=== PATIENT | female | born 1945 | race African-American/Black ===

== ENCOUNTER 2016-07-24 14:09 | Inpatient (IN) ==
[2016-07-24] MEDS ORDERED: SODIUM CHLORIDE 0.9% 250 ML IV PRN (16:07)
--- NOTE | 2016-07-24 18:18 | Pulmonology History & Physical ---
Assessment and Plan (1) GI bleed Status: Acute Assessment and plan: Patient currently stable. Type and crossed for PRBC as needed to keep Hct > 24 per GI recs. Protonix 40mg IV bid. Plan for EGD tomorrow. If no active bleed found, can hopefully transfer her back to [facility] Current Visit: Yes Qualifiers: GI bleed type/associated pathology: gastrointestinal hemorrhage with hematemesis Qualified Code(s): K92.0 - Hematemesis (2) Decubitus ulcer of sacral region, stage 3 Status: Chronic Assessment and plan: Continue wound care measures Current Visit: No (3) Atrial fibrillation Status: Chronic Assessment and plan: Stable, continue her Diltaizem and beta jihan, holding for any hypotension. Holding anticoagulation for bleed as well Current Visit: No (4) Dry gangrene Status: Chronic Current Visit: No (5) Chronic kidney disease, stage III (moderate) Status: Chronic Assessment and plan: Avoid nephrotoxic agents, continue YAEL when able to tolerate from BP standpoint Current Visit: No ROS unobtainable: due to mental status History of Present Illness History of present illness: Ms. Ramírez is a 71 year old female who has been at [facility] for the last few weeks. She has large decubitus ulcers and dry gangrene of the feet. She was being seen there for wound care and rehab, although her overall prognosis was not felt to be very good because of her multiple comorbidities. Last night she had an episode of projectile vomting which was noted ot be black by nursing staff. She also had a large melanotic bowel movement. Her vitals remained stable however and she had no further episodes of this. However CBCs were checked and her H&H was noted to be down trending significantly. GI was consulted and felt she needed to be moved to [facility] for EGD and any other interventions that might need to be done. Home Medications Medication Instructions Recorded Confirmed Type amLODIPine [Norvasc] 10 mg PO DAILY 06/28/16 07/11/16 History Acetaminophen Tab [Tylenol Tab] 650 mg PO Q6H PRN #0 tablet 07/06/16 07/11/16 Rx Alum/Mag/Simeth Max Str Liquid 15 ml PO Q6H PRN #0 udcup 07/06/16 07/11/16 Rx [Mylanta Max Strength Liquid] Atorvastatin [Lipitor] 40 mg PO BEDTIME #90 tablet 07/06/16 07/11/16 Rx Bisacodyl Tab [Dulcolax Tab] 5 mg PO DAILY PRN #0 tablet 07/06/16 07/11/16 Rx Skin Healing Oint (Aquaphor) 1 applic TOP PRN PRN #1 ointment 07/06/16 07/11/16 Rx [Aquaphor] Sodium Hypochlorite 0.25% Irr 1 applic TOP DAILY #1 irrigation 07/06/16 Rx [Dakins 1/2 Strength 0.25% Soln] Linagliptin [Tradjenta] 5 mg PO DAILY 07/11/16 07/11/16 History Multivit,Ca,Iron,Min/FA/Alb354 1 each PO DAILY 07/11/16 07/11/16 History [One Daily Healthy Weight Tab] Zolpidem Tartrate 5 mg PO BEDTIME 07/11/16 07/11/16 History diltiaZEM HCl [Diltiazem HCl] 60 mg PO Q8H 07/11/16 07/11/16 History Collagenase Oint [Santyl Oint] 1 applic TOP DAILY ointment 07/14/16 Rx HYDROcodone/ACETAMIN 10-325 [[place] 1 tablet PO Q4H PRN #0 tablet 07/14/16 Rx 10-325] Insulin Detemir [Levemir] 7 unit SUBCUT BEDTIME #0 07/14/16 07/11/16 Rx Metoprolol Tartrate Tab [Lopressor 25 mg PO BID tablet 07/14/16 Rx Tab] Pantoprazole Tab [Protonix Tab] 40 mg PO BID #60 tablet 07/14/16 Rx Skin Healing Oint (Aquaphor) 1 applic TOP PRN PRN #0 ointment 07/14/16 Rx [Aquaphor] Sodium Hypochlorite 0.25% Irr 1 applic TOP DAILY irrigation 07/14/16 Rx [Dakins 1/2 Strength 0.25% Soln] fentaNYL 12 MCG/HR PATCH 1 patch TRANSDERM Q3DAY patch 07/14/16 Rx [Duragesic 12 Patch] Allergies Allergy/AdvReac Type Severity Reaction Status Date / Time No Known Allergies Allergy Verified 07/11/16 08:47 Medical,Surgical,& Family Hx - Medical History Cardio: History of: Hypertension, [place] No history of: Pacemaker Neurology: History of: Dementia HEENT: History of: Eye Problem (Glasses), Dental Problems (Full dentures) Endocrine: History of: Diabetes Mellitus (IDDM) Gastrointestinal: History of: GERD, GI Problems (DYSPEPSIA, CONSTIPATION) Musculoskeletal: History of: Musculoskeletal Problems (OA left hip) Hematology: History of: Bleeding Problems (DVT RLE) Other: History of: Skin Problems (STAGE 4 SACRAL ULCER) - Surgical History HEENT Surgeries: Surgical HX of: Eye Surgery (Bilateral cataracts sx) - Family History Family History: Reports;: Family Cancer, Family Diabetes, Family Hypertension - Social History Smoking Status: Never smoker Results - Labs Lab Results: I have reviewed the past 24 hour labs (H&H this am 2.9 and 21, was 8.5 and 28 last night, and 12 and 40 on the ) Exam ([facility]) H&P - Constitutional Vitals: Period Temp Pulse Resp BP Sys/Ballard Pulse Ox Last 24 Hr 96.8 F 100-105 19-24 101-138/65-90 93 General appearance: mild distress - Head Head exam: Present: normal inspection - Eye Eye exam: Present: EOMI - ENT ENT exam: Present: normal exam - Respiratory Respiratory exam: Present: clear to auscultation bilaterally - Cardiovascular Cardiovascular exam: Present: regular rate and rhythm - GI/Abdominal GI/Abdominal exam: Present: hypoactive bowel sounds, soft. Absent: tenderness - Skin Skin exam: Present: other (sacral decub stage 4)
[2016-07-24] MEDS: PANTOPRAZOLE 40 MG VIAL IV SCH ×2 (19:00→21:58)
[2016-07-24] MEDS: fentaNYL 100 MCG/2 ML VIAL IV PRN (21:58)
[2016-07-24] MEDS: DILTIAZEM 60 MG TABLET PO SCH (21:58)
[2016-07-25 02:22] LABS: Apearance,Urine CLOUDY (Clear); Bacteria,Urine Many /HPF (Few); Bilirubin,Urine Negative (Negative); Blood, Urine Moderate mg/dL (Negative); Glucose,Urine (UA) Negative (Negative); Ketones,Urine Negative (Negative); Nitrite,Urine Negative (Negative); Protein,Urine 100 MG/DL; RBC,Urine 84 /HPF (0-4); Urine Specific Gravity 1.014 (1.001-1.035); Urine Urobilinogen < 2.0 EU/DL (0.2-1.0); WBC,Urine 2 /HPF (0-6)
[2016-07-25 02:23] LABS: Urine Color Light Yellow (Yellow)
[2016-07-25] MEDS: fentaNYL 100 MCG/2 ML VIAL IV PRN ×6 (03:30→17:31)
[2016-07-25 04:24] LABS: Basophils % 0.3 % (0.0-0.8); Eosinophils # 0.2 10*3/uL (0.0-0.87); Eosinophils % 1.2 % (0.00-10.9); Hematocrit 31.1 VOL% (35.7-47.0); Hemoglobin 8.7 GM/DL (12.0-16.0); Immature Granulocytes % 0.9 %; Immature Granulocytes Absolute 0.12 #; Lymphocytes # 1.7 10*3/uL (1.4-4.0); Lymphocytes % 12.6 % (21.3-54.2); Mean Corpuscular Hemoglobin 27 PG (27-34); Mean Corpuscular Volume 96.9 FL (87-102); Mean Platelet Volume 10.8 FL (9.6-12.0); Monocytes # 0.7 10*3/uL (0.11-0.8); Monocytes % 5.4 % (1.7-12.7); Neutrophils # 10.7 10*3/uL (1.4-7.4); Neutrophils % 79.6 % (38.7-73.9); Platelet Count 245 10*3/uL (130-400); Red Blood Count 3.21 10*6/uL (3.8-5.5); Red Cell Distribution Width 16.7 % (9.3-17.3); White Blood Count 13.4 10*3/uL (4.5-13.71)
[2016-07-25 06:44] LABS: Alanine Aminotransferase < 9 U/L (13-56); Albumin 1.5 G/DL (3.4-5.0); Alkaline Phosphatase 78 U/L (45-117); Aspartate Amino Transferase 20 U/L (0-37); Blood Urea Nitrogen 69 MG/DL (7-18); Calcium 7.8 MG/DL (8.5-10.1); Glucose 191 MG/DL (74-106); Osmolality,Calculated 336.9 MOS/KG (273-304); Potassium 4.3 MMOL/L (3.5-5.1); Sodium 158 MMOL/L (136-145); Total Protein 4.7 G/DL (6.4-8.3)
--- NOTE | 2016-07-25 07:39 | Gastrointestinal Consult Note ---
Assessment and Plan (1) Upper gastrointestinal bleed Status: Acute Assessment and plan: Patient was seen for the same issues 10 days ago but now appears to be having coffee-ground emesis and ananya melena. I don't believe the NG tube is probably going to help matters at all and we may consider putting in a PEG tube considering her albumin levels 1.5 and she has clinically significant decubiti and dry gangrene of her extremities. She needs a reliable nutritional source and we had discussed this on her last admission. She will discuss with the family whether she wants to proceed with PEG tube placement. I will evaluate her for esophagitis/gastritis/[place] tears/ulcers but only mild gastritis and mild esophagitis was seen back in March before she was actively bleeding. This patient will simply need to be off of Lovenox may be just cover with aspirin once we are able to identify a source. She absolutely, positively, needs to be on twice a day PPIs for the short-term at least, not famotidine. Current Visit: Yes (2) Acute posthemorrhagic anemia Status: Acute Assessment and plan: Hematocrit has responded nicely to transfusion 1 unit of packed red blood cells after dropping to 21%. Now up to 31%, surprisingly. The patient can be observed on the telemetry unit that she has A. fib and we will proceed with upper endoscopy tomorrow morning. I do not feel that she requires continued ICU observation. I've ordered the NG tube removed at this point and we will again consider PEG tube placement tomorrow while we do the upper endoscopy if the family and the patient desire this. Current Visit: Yes (3) Malnutrition of moderate degree Status: Acute Current Visit: Yes (4) Gastritis Status: Acute Current Visit: No (5) Severe malnutrition Status: Acute Assessment and plan: I'm going to order pre-albumin level but the patient's albumin is 1.5 indicating a severe calorie deficiency. I believe at this point that her wounds are probably not going to heal if she does not increase her calorie intake which would probably be best served by placement of PEG tube at this point. Risks and benefits the procedure were reviewed with the patient which include but are not limited to: Bleeding, infection, perforation, cardiac and pulmonary compromise as well as peritonitis from the PEG tube itself. Current Visit: Yes History of Present Illness Chief complaint: melena and coffee-ground emesis in a patient on Lovenox and aspirin History of present illness: Ms. Ramírez is a 71 year old female who is well-known to me from her previous hospitalization back in March 2016 at which time we had noted that she had a previous workup done for anemia by Dr. Whitaker back in 2010. An EGD was repeated by me on 03/26/16 which demonstrated mild patchy gastritis as well as LA class A erosive esophagitis with biopsies taken to rule out celiac sprue and Helicobacter pylori. The patient continues to have guaiac positive stools and has anemia not just due to the ongoing gastritis but likely from nutritional causes. Note that she has not eaten anything for several days of significance. She states that she does not have an appetite but likely there is some depression noted with or without dementia. She is now having any abdominal pain in the LUQ, she has some mild constipation but had an episode of melena yesterday along with coffee ground emesis. I did discuss the case with Aida her [id number], who is in the room on her last admission the placement of a PEG tube for nutritional support, but ultimately this was decided against. Despite the anemia and prior history of GI bleeding at [facility] she was started on Lovenox and aspirin, by report in the, and had once again and switch from Protonix to famotidine which is again what caused her GI bleed the last visit when I consulted on her 10 days ago. Matters drop from 28 % down to 21% now status post 1 unit of packed for blood cells this is back up to 31%. Need to minimize anticoagulation this lady and keep her on Protonix probably twice daily instead of H2 RA inhibitors. Home Medications Medication Instructions Recorded Confirmed Type amLODIPine [Norvasc] 10 mg PO DAILY 06/28/16 07/11/16 History Acetaminophen Tab [Tylenol Tab] 650 mg PO Q6H PRN #0 tablet 07/06/16 07/11/16 Rx Alum/Mag/Simeth Max Str Liquid 15 ml PO Q6H PRN #0 udcup 07/06/16 07/11/16 Rx [Mylanta Max Strength Liquid] Atorvastatin [Lipitor] 40 mg PO BEDTIME #90 tablet 07/06/16 07/11/16 Rx Bisacodyl Tab [Dulcolax Tab] 5 mg PO DAILY PRN #0 tablet 07/06/16 07/11/16 Rx Skin Healing Oint (Aquaphor) 1 applic TOP PRN PRN #1 ointment 07/06/16 07/11/16 Rx [Aquaphor] Sodium Hypochlorite 0.25% Irr 1 applic TOP DAILY #1 irrigation 07/06/16 Rx [Dakins 1/2 Strength 0.25% Soln] Linagliptin [Tradjenta] 5 mg PO DAILY 07/11/16 07/11/16 History Multivit,Ca,Iron,Min/FA/Rsr893 1 each PO DAILY 07/11/16 07/11/16 History [One Daily Healthy Weight Tab] Zolpidem Tartrate 5 mg PO BEDTIME 07/11/16 07/11/16 History diltiaZEM HCl [Diltiazem HCl] 60 mg PO Q8H 07/11/16 07/11/16 History Collagenase Oint [Santyl Oint] 1 applic TOP DAILY ointment 07/14/16 Rx HYDROcodone/ACETAMIN 10-325 [[place] 1 tablet PO Q4H PRN #0 tablet 07/14/16 Rx 10-325] Insulin Detemir [Levemir] 7 unit SUBCUT BEDTIME #0 07/14/16 07/11/16 Rx Metoprolol Tartrate Tab [Lopressor 25 mg PO BID tablet 07/14/16 Rx Tab] Pantoprazole Tab [Protonix Tab] 40 mg PO BID #60 tablet 07/14/16 Rx Skin Healing Oint (Aquaphor) 1 applic TOP PRN PRN #0 ointment 07/14/16 Rx [Aquaphor] Sodium Hypochlorite 0.25% Irr 1 applic TOP DAILY irrigation 07/14/16 Rx [Dakins 1/2 Strength 0.25% Soln] fentaNYL 12 MCG/HR PATCH 1 patch TRANSDERM Q3DAY patch 07/14/16 Rx [Duragesic 12 Patch] Allergies Allergy/AdvReac Type Severity Reaction Status Date / Time No Known Allergies Allergy Verified 07/11/16 08:47 Medical,Surgical,& Family Hx - Medical History Cardio: History of: Hypertension, [place] No history of: Pacemaker Neurology: History of: Dementia HEENT: History of: Eye Problem (Glasses), Dental Problems (Full dentures) Endocrine: History of: Diabetes Mellitus (IDDM) Gastrointestinal: History of: GERD, GI Problems (DYSPEPSIA, CONSTIPATION) Musculoskeletal: History of: Musculoskeletal Problems (OA left hip) Hematology: History of: Bleeding Problems (DVT RLE) Other: History of: Skin Problems (STAGE 4 SACRAL ULCER) - Surgical History HEENT Surgeries: Surgical HX of: Eye Surgery (Bilateral cataracts sx) - Family History Family History: Reports;: Family Cancer, Family Diabetes, Family Hypertension - Social History Smoking Status: Never smoker Review of systems: Constitutional: Denies fever, chills, but positive for nausea, and vomiting Eyes: Denies dry eyes, and scleral icterus HENT: Denies headaches Cardiovascular: Denies acute chest pain and claudication Respiratory: Denies shortness of breath, wheezing, and difficulty breathing, denies cough Gastrointestinal: As noted in the HPI Genitourinary: Denies dysuria and hematuria Neurologic: Denies vision loss, and loss of sensation Musculoskeletal: Admits to joint swelling, joint stiffness, and muscular weakness--multiple decubiti and distal gangrene noted Psychiatric: Admits to some depression but no malcom symptoms Heme-Lymph: Denies easy bruising, lymph node enlargement or tenderness, night sweats, excessive bleeding Allergies-immunologic: Denies pruritus and rhinorrhea Exam - Constitutional Vitals: Period Temp Pulse Resp BP Sys/Ballard Pulse Ox Last 24 Hr 96.8 F-97.4 F 90-111 17-25 95-139/58-96 93-100 General appearance: no acute distress - Head Head exam: Present: normocephalic - Eye Eye exam: Present: EOMI Pupils: Present: BREANN - Respiratory Respiratory exam: Present: clear to auscultation bilaterally. Absent: rales, rhonchi, wheezes - Cardiovascular Cardiovascular exam: Present: regular rate and rhythm - GI/Abdominal GI/Abdominal exam: Present: normal bowel sounds, tenderness (in the left upper quadrant), soft. Absent: ascites, distended, guarding - Neurological Exam Neurological exam: Present: alert, oriented X3, CN II-XII intact. Absent: motor sensory deficit - Psychiatric Psychiatric exam: Present: normal affect, normal mood - Skin Skin exam: Present: warm Results - Labs CBC & BMP: 07/25/16 04:00 07/25/16 05:54 Specialty Discharge - Follow Up or Referrals - Discharge Medications No Action amLODIPine [Norvasc] 10 mg PO DAILY Atorvastatin [Lipitor] 40 mg PO BEDTIME #90 tablet Skin Healing Oint (Aquaphor) [Aquaphor] 1 applic TOP PRN PRN #1 ointment PRN Reason: Dry Skin HYDROcodone/ACETAMIN 10-325 [[place] 10-325] 1 tablet PO Q4H PRN #0 tablet PRN Reason: Pain Moderate (4-7) Metoprolol Tartrate Tab [Lopressor Tab] 25 mg PO BID tablet Skin Healing Oint (Aquaphor) [Aquaphor] 1 applic TOP PRN PRN #0 ointment PRN Reason: Dry Skin Sodium Hypochlorite 0.25% Irr [Dakins 1/2 Strength 0.25% Soln] 1 applic TOP DAILY irrigation Insulin Detemir [Levemir] 7 unit SUBCUT BEDTIME #0 Acetaminophen Tab [Tylenol Tab] 650 mg PO Q6H PRN #0 tablet PRN Reason: Pain Mild (1-3) And/Or Fever Alum/Mag/Simeth Max Str Liquid [Mylanta Max Strength Liquid] 15 ml PO Q6H PRN #0 udcup PRN Reason: Dyspepsia Bisacodyl Tab [Dulcolax Tab] 5 mg PO DAILY PRN #0 tablet PRN Reason: Constipation Sodium Hypochlorite 0.25% Irr [Dakins 1/2 Strength 0.25% Soln] 1 applic TOP DAILY #1 irrigation Multivit,Ca,Iron,Min/FA/Qup505 [One Daily Healthy Weight Tab] 1 each PO DAILY Zolpidem Tartrate 5 mg PO BEDTIME diltiaZEM HCl [Diltiazem HCl] 60 mg PO Q8H Linagliptin [Tradjenta] 5 mg PO DAILY Collagenase Oint [Santyl Oint] 1 applic TOP DAILY ointment fentaNYL 12 MCG/HR PATCH [Duragesic 12 Patch] 1 patch TRANSDERM Q3DAY patch Pantoprazole Tab [Protonix Tab] 40 mg PO BID #60 tablet
[2016-07-25 09:03] LABS: INR 1.1; PT Patient Result 11.9 SECS
[2016-07-25] MEDS: DILTIAZEM 60 MG TABLET PO SCH ×3 (09:11→21:14)
[2016-07-25] MEDS: PANTOPRAZOLE 40 MG VIAL IV SCH ×2 (09:11→21:14)
[2016-07-25] MEDS ORDERED: LIDOCAINE 1% 5 ML VIAL ONE (10:14)
[2016-07-25] MEDS ORDERED: PROPOFOL 200 MG/20 ML VIAL IV ONE (10:14)
[2016-07-25] MEDS ORDERED: SODIUM CHLORIDE 0.9% 250 ML IV PRN (12:50)
[2016-07-25] MEDS ORDERED: SKIN HEALING OINT (AQUAPHOR) 50 GM TUBE TOP PRN ×2 (13:42)
--- NOTE | 2016-07-25 19:40 | Pulmonology Progress Note ---
Pulmonary - PN: Subj Interval history: Patient stable without further bleed today. Transferred out of ICU. Gi consulted. Exam (Progress Note) - Constitutional Vitals: Period Temp Pulse Resp BP Sys/Ballard Pulse Ox Last 24 Hr 97 F-99.3 F 76-111 12-25 95-138/50-96 93-100 General appearance: no acute distress - Head Head exam: Present: normal inspection - Respiratory Respiratory exam: Absent: accessory muscle use, wheezes - Cardiovascular Cardiovascular exam: Present: regular rate and rhythm Results - Labs CBC & BMP: 07/25/16 12:12 07/25/16 05:54 Lab Results: I have reviewed the past 24 hour labs Assessment and Plan (1) GI bleed Status: Acute Assessment and plan: Patient stable. Appreciate GI recs. Plan for EGD tomorow morning. Continue Protonix Current Visit: Yes Qualifiers: GI bleed type/associated pathology: gastrointestinal hemorrhage with hematemesis Qualified Code(s): K92.0 - Hematemesis (2) Decubitus ulcer of sacral region, stage 3 Status: Chronic Assessment and plan: Continue wound care measures Current Visit: No (3) Atrial fibrillation Status: Chronic Assessment and plan: Stable, continue her Diltaizem and beta jihan, holding for any hypotension. Holding anticoagulation for bleed as well Current Visit: No (4) Dry gangrene Status: Chronic Current Visit: No (5) Chronic kidney disease, stage III (moderate) Status: Chronic Assessment and plan: Avoid nephrotoxic agents, continue YAEL when able to tolerate from BP standpoint Current Visit: No Specialty Discharge - Follow Up or Referrals - Discharge Medications No Action amLODIPine [Norvasc] 10 mg PO DAILY Atorvastatin [Lipitor] 40 mg PO BEDTIME #90 tablet Skin Healing Oint (Aquaphor) [Aquaphor] 1 applic TOP PRN PRN #1 ointment PRN Reason: Dry Skin HYDROcodone/ACETAMIN 10-325 [[place] 10-325] 1 tablet PO Q4H PRN #0 tablet PRN Reason: Pain Moderate (4-7) Metoprolol Tartrate Tab [Lopressor Tab] 25 mg PO BID tablet Skin Healing Oint (Aquaphor) [Aquaphor] 1 applic TOP PRN PRN #0 ointment PRN Reason: Dry Skin Sodium Hypochlorite 0.25% Irr [Dakins 1/2 Strength 0.25% Soln] 1 applic TOP DAILY irrigation Insulin Detemir [Levemir] 7 unit SUBCUT BEDTIME #0 Acetaminophen Tab [Tylenol Tab] 650 mg PO Q6H PRN #0 tablet PRN Reason: Pain Mild (1-3) And/Or Fever Alum/Mag/Simeth Max Str Liquid [Mylanta Max Strength Liquid] 15 ml PO Q6H PRN #0 udcup PRN Reason: Dyspepsia Bisacodyl Tab [Dulcolax Tab] 5 mg PO DAILY PRN #0 tablet PRN Reason: Constipation Sodium Hypochlorite 0.25% Irr [Dakins 1/2 Strength 0.25% Soln] 1 applic TOP DAILY #1 irrigation Multivit,Ca,Iron,Min/FA/Ieg749 [One Daily Healthy Weight Tab] 1 each PO DAILY Zolpidem Tartrate 5 mg PO BEDTIME diltiaZEM HCl [Diltiazem HCl] 60 mg PO Q8H Linagliptin [Tradjenta] 5 mg PO DAILY Collagenase Oint [Santyl Oint] 1 applic TOP DAILY ointment fentaNYL 12 MCG/HR PATCH [Duragesic 12 Patch] 1 patch TRANSDERM Q3DAY patch Pantoprazole Tab [Protonix Tab] 40 mg PO BID #60 tablet
[2016-07-25] MEDS: ZALEPLON 5 MG CAPSULE PO SCH (21:15)
[2016-07-26] MEDS: fentaNYL 100 MCG/2 ML VIAL IV PRN ×4 (05:30→17:43)
[2016-07-26 07:23] LABS: Basophils % 0.3 % (0.0-0.8); Eosinophils # 0.2 10*3/uL (0.0-0.87); Eosinophils % 2.2 % (0.00-10.9); Hematocrit 27.9 VOL% (35.7-47.0); Hemoglobin 8.6 GM/DL (12.0-16.0); Immature Granulocytes % 0.5 %; Immature Granulocytes Absolute 0.05 #; Lymphocytes # 1.5 10*3/uL (1.4-4.0); Lymphocytes % 14.7 % (21.3-54.2); Mean Corpuscular HGB Conc 30.8 GM/DL (32-36); Mean Corpuscular Hemoglobin 28 PG (27-34); Mean Corpuscular Volume 89.7 FL (87-102); Mean Platelet Volume 10.8 FL (9.6-12.0); Monocytes # 0.7 10*3/uL (0.11-0.8); Neutrophils # 7.9 10*3/uL (1.4-7.4); Neutrophils % 75.3 % (38.7-73.9); Platelet Count 221 10*3/uL (130-400); Red Blood Count 3.11 10*6/uL (3.8-5.5); Red Cell Distribution Width 16.5 % (9.3-17.3); White Blood Count 10.4 10*3/uL (4.5-13.71)
[2016-07-26] MEDS ORDERED: SODIUM HYPOCHLORITE 0.25% IRRIG 473 ML BOTTLE TOP SCH (09:00)
[2016-07-26] MEDS: DEXTROSE 5% NACL 0.45% 1,000 ML IV SCH (09:59)
--- NOTE | 2016-07-26 10:50 | Operative Note ---
Date of procedure: 07/26/16 Pre-op diagnosis: hematocrit decreased to 21.8%, coffee-ground emesis, malnutrition Post-op diagnosis: other Procedure: PROCEDURE: Esophagogastroduodenoscopy (EGD) with percutaneous endoscopic gastrostomy (PEG) tube placement with cold biopsy for pathology REFERRING PHYSICIAN: [Morales Cook M.D.] INDICATIONS: [Coffee-ground emesis and hematocrit drop with melena to 21.8%, now status post 3 unit transfusion this is up to 27%. This patient previously been evaluated for severe malnutrition and has had difficulty taking and caloric intake adequate to meet her healing needs and so PEG tube requested previously, we'll place at this time. Of note this patient was taken off of her Protonix that she had received previously and placed on famotidine along with reinitiation of aspirin and Plavix at [facility].] ENDOSCOPIST: Prabhjot Arreola MD ENDOSCOPE: Olympus Video 100 System upper endoscope ASA CLASS: [] EXAM: CV: [Regular rate and rhythm] Respiratory: [Clear to ascultation] Abdominal: [Positive bowel sounds] MEDICATION: As per Anesthesia nursing protocol, see their notes PROCEDURE: After discussion of the potential risks and benefits of upper endoscopy and PEG placement, the informed consent was obtained. The patient was then placed in the left lateral decubitus position where sedation was achieved as noted above. Esophageal intubation was performed without difficulty , and the endoscope was advanced through the esophagus, stomach and duodenum. A slow withdrawal was then performed with retroflexion in the stomach for careful inspection of the incisura angularis, fundus and cardia. The scope was then returned to a neutral position and withdrawn through the esophagus. The patient tolerated the procedure well and without complication. BIOPSIES: [Gastric antrum/body] PHOTOGRAPHS: [Obtained] FINDINGS: Hypopharynx and Larynx: [Normal] Esohagoscopy Upper and middle thirds: [Normal] Lower third [Normal] Esophogastric junctions: [No gross evidence of stricturing, but a localized Ifeoma-Troy tear that appeared to be healing was seen here.][] Gastroscopy: Cardia/Fundus: [A large 8 cm hiatal hernia was noted here distorting the anatomy of the stomach has approximately a quarter to a third of this was located in the thoracic cavity. Carditis noted within the hiatal hernia along with the bottom portion of the healing Ifeoma-Troy tear ] Body: [Mild diffuse gastritis, biopsied] Antrum and pylorus [mild patchy gastritis, patchy erosive gastritis biopsied][] Duodenoscopy: Bulb [Normal] Second and third portions: [Normal] PEG Kit/tube size: [Cook 20 Lebanese PEG tube] PEG Placement: After insufflation of the stomach with the prior procedure proper positioning was determined through transillumination and direct pressure with one to one transmission through the abdominal wall. The abdomen was sterilely prepped and draped, injected with 1% lidocaine and a 1 cm incision was cut in the external skin to accommodate the PEG tube. Using standard Ponsky "pull" technique, a catheter was inserted into the stomach (using a fluid filled syringe with back-suction to examine for interposed hollow organs) and a string was advanced into the stomach. This was snared through the scope, pulled through the mouth and tied to the PEG tube. The feeding tube was then pulled down into the stomach and out the abdominal wall, and a hub appropriately placed at the base to provide traction between internal hub and external skin. The tube was trimmed, dressed and a second look with the endoscope used to confirm position and function of the tube. The procedure was tolerated well and without complication. IMPRESSION: [Successful PEG tube placement, patient's coffee-ground emesis was thought to be due to a combination of Ifeoma-Troy tear and erosive gastritis in the stomach particularly in the antrum. Biopsies are pending-- anemia secondary to malnutrition and chronic disease is also suspected be playing a part. Initiation of tube feeds should help with this.] RECOMMENDATIONS: [Maintain head of bed at 30 degrees Flush the PEG tube with 30 cc of water or saline every 4 hours Obtain (if not done already) nutritional consult to determine optimal feeding rate, continuous vs. bolus, and any hydration requirements necessary. Meds may be crushed and flushed through PEG in 12 hours, followed by 10 ml of water, as per the patient's attending physcian. Feeding though the tube may start at 12 hours with an initial rate of 30 ml/ hour advancing by 10 ml's every four hours until goal rate achieved. Hold tube feeds for residuals greater than 100 ml, checked each shift.] [Use of the abdominal binder is strongly encouraged in this patient.] She is certainly safe to return to [facility] in my opinion. Would strongly discourage use of aspirin and Plavix in the short-term while the above lesions heal. We will use Protonix 40 mg twice daily for the next 1 month and cut this back to once daily Prabhjot Arreola MD Copy to: [Morales Cook M.D.] Anesthesia: MAC Surgeon / Physician: Prabhjot Arreola Estimated blood loss: minimal Specimens: other (gastric antrum/body) Condition: stable Disposition: post procedure unit (G.I. Suite) Results - Labs CBC & BMP: 07/26/16 07:04 07/25/16 05:54 Discharge Plan - Discharge Medications No Action amLODIPine [Norvasc] 10 mg PO DAILY Atorvastatin [Lipitor] 40 mg PO BEDTIME #90 tablet Skin Healing Oint (Aquaphor) [Aquaphor] 1 applic TOP PRN PRN #1 ointment PRN Reason: Dry Skin HYDROcodone/ACETAMIN 10-325 [[place] 10-325] 1 tablet PO Q4H PRN #0 tablet PRN Reason: Pain Moderate (4-7) Metoprolol Tartrate Tab [Lopressor Tab] 25 mg PO BID tablet Skin Healing Oint (Aquaphor) [Aquaphor] 1 applic TOP PRN PRN #0 ointment PRN Reason: Dry Skin Sodium Hypochlorite 0.25% Irr [Dakins 1/2 Strength 0.25% Soln] 1 applic TOP DAILY irrigation Insulin Detemir [Levemir] 7 unit SUBCUT BEDTIME #0 Acetaminophen Tab [Tylenol Tab] 650 mg PO Q6H PRN #0 tablet PRN Reason: Pain Mild (1-3) And/Or Fever Alum/Mag/Simeth Max Str Liquid [Mylanta Max Strength Liquid] 15 ml PO Q6H PRN #0 udcup PRN Reason: Dyspepsia Bisacodyl Tab [Dulcolax Tab] 5 mg PO DAILY PRN #0 tablet PRN Reason: Constipation Sodium Hypochlorite 0.25% Irr [Dakins 1/2 Strength 0.25% Soln] 1 applic TOP DAILY #1 irrigation Multivit,Ca,Iron,Min/FA/Dom288 [One Daily Healthy Weight Tab] 1 each PO DAILY Zolpidem Tartrate 5 mg PO BEDTIME diltiaZEM HCl [Diltiazem HCl] 60 mg PO Q8H Linagliptin [Tradjenta] 5 mg PO DAILY Collagenase Oint [Santyl Oint] 1 applic TOP DAILY ointment fentaNYL 12 MCG/HR PATCH [Duragesic 12 Patch] 1 patch TRANSDERM Q3DAY patch Pantoprazole Tab [Protonix Tab] 40 mg PO BID #60 tablet - Follow Up or Referral - Forms/Instructions
--- NOTE | 2016-07-26 10:57 | Gastrointestinal Progress Note ---
Assessment and Plan (1) Upper gastrointestinal bleed Status: Acute Assessment and plan: Patient was seen for the same issues 10 days ago but now appears to be having coffee-ground emesis and ananya melena. I don't believe the NG tube is probably going to help matters at all and we may consider putting in a PEG tube considering her albumin levels 1.5 and she has clinically significant decubiti and dry gangrene of her extremities. She needs a reliable nutritional source and we had discussed this on her last admission. She will discuss with the family whether she wants to proceed with PEG tube placement. I will evaluate her for esophagitis/gastritis/Ifeoma-Troy tears/ulcers but only mild gastritis and mild esophagitis was seen back in March before she was actively bleeding. This patient will simply need to be off of Lovenox may be just cover with aspirin once we are able to identify a source. She absolutely, positively, needs to be on twice a day PPIs for the short-term at least, not famotidine. 07/26/16-- the patient underwent upper endoscopy today with the following findings: Successful PEG tube placement, patient's coffee-ground emesis was thought to be due to a combination of Ifeoma-Troy tear and erosive gastritis in the stomach particularly in the antrum. Biopsies are pending-- anemia secondary to malnutrition and chronic disease is also suspected be playing a part. Initiation of tube feeds should help with this. In my opinion she is stable although you could watch her for another day she is probably safe to send back to [facility] today. Would initiate tube feeds in 12 hours. Current Visit: Yes (2) Acute posthemorrhagic anemia Status: Acute Assessment and plan: Hematocrit has responded nicely to transfusion 1 unit of packed red blood cells after dropping to 21%. Now up to 31%, surprisingly. The patient can be observed on the telemetry unit that she has A. fib and we will proceed with upper endoscopy tomorrow morning. I do not feel that she requires continued ICU observation. I've ordered the NG tube removed at this point and we will again consider PEG tube placement tomorrow while we do the upper endoscopy if the family and the patient desire this. 07/26/16--patient's hematocrit has improved with 3 units of blood, now up from 21.8 to 27.9. No further coffee-ground emesis been noted and she is safe to send back to the [facility] floor on Protonix twice a day as well as off of aspirin and Lovenox at least for the short-term. She will need be on Protonix at least once daily after 2 weeks. Current Visit: Yes (3) Malnutrition of moderate degree Status: Acute Current Visit: Yes (4) Gastritis Status: Acute Current Visit: No (5) Severe malnutrition Status: Acute Assessment and plan: I'm going to order pre-albumin level but the patient's albumin is 1.5 indicating a severe calorie deficiency. I believe at this point that her wounds are probably not going to heal if she does not increase her calorie intake which would probably be best served by placement of PEG tube at this point. Risks and benefits the procedure were reviewed with the patient which include but are not limited to: Bleeding, infection, perforation, cardiac and pulmonary compromise as well as peritonitis from the PEG tube itself. 07/26/16--patient's prealbumin level was noted to be low, she will benefit from PEG tube placement for nutritional improvement not just with improvement of her GI bleeding but also wound healing in general. Current Visit: Yes Gastroenterology - PN: Subj Interval history: No new complaints, I was able to talk with the patient's son Ignacio who gave consent for the procedure after being informed of the risks and benefits. Exam (Progress Note) - Constitutional Vitals: Period Temp Pulse Resp BP Sys/Ballard Pulse Ox Last 24 Hr 97 F-101.4 F 76-95 16-24 111-143/55-070 93-100 General appearance: no acute distress - Head Head exam: Present: normocephalic, atraumatic - Eye Eye exam: Present: EOMI Pupils: Present: BREANN - Respiratory Respiratory exam: Present: clear to auscultation bilaterally. Absent: rales, rhonchi, wheezes - GI/Abdominal GI/Abdominal exam: Present: normal bowel sounds, rebound, soft. Absent: tenderness - Neurological Exam Neurological exam: Present: alert, oriented X3 - Psychiatric Psychiatric exam: Present: normal affect, normal mood - Skin Skin exam: Present: normal color Results - Labs CBC & BMP: 07/26/16 07:04 07/25/16 05:54 Specialty Discharge - Follow Up or Referrals - Discharge Medications No Action amLODIPine [Norvasc] 10 mg PO DAILY Atorvastatin [Lipitor] 40 mg PO BEDTIME #90 tablet Skin Healing Oint (Aquaphor) [Aquaphor] 1 applic TOP PRN PRN #1 ointment PRN Reason: Dry Skin HYDROcodone/ACETAMIN 10-325 [[place] 10-325] 1 tablet PO Q4H PRN #0 tablet PRN Reason: Pain Moderate (4-7) Metoprolol Tartrate Tab [Lopressor Tab] 25 mg PO BID tablet Skin Healing Oint (Aquaphor) [Aquaphor] 1 applic TOP PRN PRN #0 ointment PRN Reason: Dry Skin Sodium Hypochlorite 0.25% Irr [Dakins 1/2 Strength 0.25% Soln] 1 applic TOP DAILY irrigation Insulin Detemir [Levemir] 7 unit SUBCUT BEDTIME #0 Acetaminophen Tab [Tylenol Tab] 650 mg PO Q6H PRN #0 tablet PRN Reason: Pain Mild (1-3) And/Or Fever Alum/Mag/Simeth Max Str Liquid [Mylanta Max Strength Liquid] 15 ml PO Q6H PRN #0 udcup PRN Reason: Dyspepsia Bisacodyl Tab [Dulcolax Tab] 5 mg PO DAILY PRN #0 tablet PRN Reason: Constipation Sodium Hypochlorite 0.25% Irr [Dakins 1/2 Strength 0.25% Soln] 1 applic TOP DAILY #1 irrigation Multivit,Ca,Iron,Min/FA/Kvy097 [One Daily Healthy Weight Tab] 1 each PO DAILY Zolpidem Tartrate 5 mg PO BEDTIME diltiaZEM HCl [Diltiazem HCl] 60 mg PO Q8H Linagliptin [Tradjenta] 5 mg PO DAILY Collagenase Oint [Santyl Oint] 1 applic TOP DAILY ointment fentaNYL 12 MCG/HR PATCH [Duragesic 12 Patch] 1 patch TRANSDERM Q3DAY patch Pantoprazole Tab [Protonix Tab] 40 mg PO BID #60 tablet
--- NOTE | 2016-07-26 10:58 | Anesthesia ---
Anesthesia Post OP - Post Ansesthetic Evaluation Patient seen in post op: Yes Resp: within normal limits CV: within normal limits Mental: within normal limits Temp: within normal limits Elak-Wp-Tllscwotj: within normal limits Nausea and Vomiting: within normal limits Pain: within normal limits
[2016-07-26] MEDS ORDERED: DEXTROSE 50% 25 GM/50 ML VIAL IV PRN (11:17)
[2016-07-26] MEDS ORDERED: GLUCAGON 1 MG VIAL IM PRN (11:17)
--- NOTE | 2016-07-26 12:07 | Pulmonology Progress Note ---
Pulmonary - PN: Subj Interval history: Patient underwent EGD with PEG tube placement this morning. She is doing well postprocedure. Daughter is at bedside, all questions answered Exam (Progress Note) - Constitutional Vitals: Period Temp Pulse Resp BP Sys/Ballard Pulse Ox Last 24 Hr 97 F-101.4 F 76-97 16-22 117-143/55-079 93-100 General appearance: no acute distress - Respiratory Respiratory exam: Absent: accessory muscle use, stridor, wheezes Results - Labs CBC & BMP: 07/26/16 07:04 07/25/16 05:54 Lab Results: I have reviewed the past 24 hour labs Assessment and Plan (1) GI bleed Status: Acute Assessment and plan: Patient stable. patient only required 1 unit PRBC. EGD revealed gastritis and possible paz blackburn tear. Will continue on Protonix 40mg bid for 2 weeks and then can go to daily. Appreciate [employer] assistance with this. Will monitor her here today and can discharge back to [facility] tomorrow Current Visit: Yes Qualifiers: GI bleed type/associated pathology: gastrointestinal hemorrhage with hematemesis Qualified Code(s): K92.0 - Hematemesis (2) Decubitus ulcer of sacral region, stage 3 Status: Chronic Assessment and plan: Continue wound care measures Current Visit: No (3) Atrial fibrillation Status: Chronic Assessment and plan: Stable, continue her Diltaizem and beta jihan, holding for any hypotension. Holding anticoagulation for bleed as well Current Visit: No (4) Dry gangrene Status: Chronic Current Visit: No (5) Chronic kidney disease, stage III (moderate) Status: Chronic Assessment and plan: Avoid nephrotoxic agents, continue YAEL when able to tolerate from BP standpoint Current Visit: No Specialty Discharge - Follow Up or Referrals - Discharge Medications No Action amLODIPine [Norvasc] 10 mg PO DAILY Atorvastatin [Lipitor] 40 mg PO BEDTIME #90 tablet Skin Healing Oint (Aquaphor) [Aquaphor] 1 applic TOP PRN PRN #1 ointment PRN Reason: Dry Skin HYDROcodone/ACETAMIN 10-325 [[place] 10-325] 1 tablet PO Q4H PRN #0 tablet PRN Reason: Pain Moderate (4-7) Metoprolol Tartrate Tab [Lopressor Tab] 25 mg PO BID tablet Sodium Hypochlorite 0.25% Irr [Dakins 1/2 Strength 0.25% Soln] 1 applic TOP DAILY irrigation Glucagon 1 mg IM PRN PRN PRN Reason: Glucose Management Insulin Regular [HumuLIN R] See Protocol SUBCUT ACHS PRN PRN Reason: Glucose Management Enoxaparin [Lovenox] 30 mg SUBCUT Q24H Pentoxifylline [TRENtal] 400 mg PO TID Famotidine Tab [Pepcid Tab] 20 mg PO DAILY Memantine [Namenda] 5 mg PO BID Furosemide Inj [Lasix Inj] 40 mg IV DAILY Acetaminophen Tab [Tylenol Tab] 650 mg PO Q6H PRN #0 tablet PRN Reason: Pain Mild (1-3) And/Or Fever Alum/Mag/Simeth Max Str Liquid [Mylanta Max Strength Liquid] 15 ml PO Q6H PRN #0 udcup PRN Reason: Dyspepsia Bisacodyl Tab [Dulcolax Tab] 5 mg PO DAILY PRN #0 tablet PRN Reason: Constipation Multivit,Ca,Iron,Min/FA/Euq107 [One Daily Healthy Weight Tab] 1 each PO DAILY diltiaZEM HCl [Diltiazem HCl] 60 mg PO Q8H Collagenase Oint [Santyl Oint] 1 applic TOP DAILY ointment fentaNYL 12 MCG/HR PATCH [Duragesic 12 Patch] 1 patch TRANSDERM Q3DAY patch
[2016-07-26] MEDS: DILTIAZEM 60 MG TABLET PO SCH ×3 (12:28→21:45)
[2016-07-26] MEDS: INSULIN REGULAR 100 UNIT/ML SUBCUT SCH ×2 (12:29→17:19)
[2016-07-26] MEDS ORDERED: ALBUTEROL/IPRATROPIUM 3 ML NEB RESP TX PRN (13:16)
[2016-07-26] MEDS: COLLAGENASE OINT 30 GM TUBE TOP SCH (14:40)
[2016-07-26] MEDS: SODIUM HYPOCHLORITE 0.25% IRRIG 473 ML BOTTLE TOP SCH (14:40)
[2016-07-26] MEDS: PANTOPRAZOLE 40 MG VIAL IV SCH ×2 (15:53→21:45)
[2016-07-26] MEDS: ZALEPLON 5 MG CAPSULE PO SCH (21:45)
[2016-07-27] MEDS: fentaNYL 100 MCG/2 ML VIAL IV PRN ×2 (02:38→06:19)
[2016-07-27] MEDS: INSULIN REGULAR 100 UNIT/ML SUBCUT SCH ×3 (05:29→11:51)
[2016-07-27 08:28] LABS: Calcium 7.7 MG/DL (8.5-10.1); Magnesium 2.4 MG/DL (1.8-2.4); Osmolality,Calculated 335.5 MOS/KG (273-304); Phosphorous 3.9 MG/DL (2.5-4.9); Potassium 4.2 MMOL/L (3.5-5.1)
[2016-07-27] MEDS: DILTIAZEM 60 MG TABLET PO SCH ×2 (08:53→15:26)
[2016-07-27] MEDS: PANTOPRAZOLE 40 MG VIAL IV SCH (08:54)
--- NOTE | 2016-07-27 09:09 | Discharge Summary ---
Hospital Course - Hospital Course Hospital Course: This 71-year-old black female had been hospitalized at [facility]. She had a sacral decubitus ulcer and dry gangrene of her feet. She had hematemesis and was transferred up to [facility] for further GI evaluation. Dr. Banuelos did a gastroscope and found that she had gastritis and a small Ifeoma-Troy tear as the cause of her bleeding. He also placed a PEG tube because of her malnutrition. She has protein calorie malnutrition which is severe. She is now getting started on PEG feedings. She is somewhat hypernatremic. Otherwise she is stable and ready to return to [facility]. Specialty Discharge - Follow Up or Referrals - Discharge Medications No Action amLODIPine [Norvasc] 10 mg PO DAILY Atorvastatin [Lipitor] 40 mg PO BEDTIME #90 tablet Skin Healing Oint (Aquaphor) [Aquaphor] 1 applic TOP PRN PRN #1 ointment PRN Reason: Dry Skin HYDROcodone/ACETAMIN 10-325 [[place] 10-325] 1 tablet PO Q4H PRN #0 tablet PRN Reason: Pain Moderate (4-7) Metoprolol Tartrate Tab [Lopressor Tab] 25 mg PO BID tablet Sodium Hypochlorite 0.25% Irr [Dakins 1/2 Strength 0.25% Soln] 1 applic TOP DAILY irrigation Glucagon 1 mg IM PRN PRN PRN Reason: Glucose Management Insulin Regular [HumuLIN R] See Protocol SUBCUT ACHS PRN PRN Reason: Glucose Management Enoxaparin [Lovenox] 30 mg SUBCUT Q24H Pentoxifylline [TRENtal] 400 mg PO TID Famotidine Tab [Pepcid Tab] 20 mg PO DAILY Memantine [Namenda] 5 mg PO BID Furosemide Inj [Lasix Inj] 40 mg IV DAILY Acetaminophen Tab [Tylenol Tab] 650 mg PO Q6H PRN #0 tablet PRN Reason: Pain Mild (1-3) And/Or Fever Alum/Mag/Simeth Max Str Liquid [Mylanta Max Strength Liquid] 15 ml PO Q6H PRN #0 udcup PRN Reason: Dyspepsia Bisacodyl Tab [Dulcolax Tab] 5 mg PO DAILY PRN #0 tablet PRN Reason: Constipation Multivit,Ca,Iron,Min/FA/Dvf291 [One Daily Healthy Weight Tab] 1 each PO DAILY diltiaZEM HCl [Diltiazem HCl] 60 mg PO Q8H Collagenase Oint [Santyl Oint] 1 applic TOP DAILY ointment fentaNYL 12 MCG/HR PATCH [Duragesic 12 Patch] 1 patch TRANSDERM Q3DAY patch Discharge Plan - Discharge Data Disposition: Disch/Xfer to Assisted Hos Condition at Discharge: Stable Discharge Diet: other (feet per PEG) Activity: as per physical therapy Hygiene: keep area(s) dry (sacrum and lower legs) Weight Bearing at Discharge: non-weight bearing Driving: not for - Discharge Medications No Action amLODIPine [Norvasc] 10 mg PO DAILY Atorvastatin [Lipitor] 40 mg PO BEDTIME #90 tablet Skin Healing Oint (Aquaphor) [Aquaphor] 1 applic TOP PRN PRN #1 ointment PRN Reason: Dry Skin HYDROcodone/ACETAMIN 10-325 [[place] 10-325] 1 tablet PO Q4H PRN #0 tablet PRN Reason: Pain Moderate (4-7) Metoprolol Tartrate Tab [Lopressor Tab] 25 mg PO BID tablet Sodium Hypochlorite 0.25% Irr [Dakins 1/2 Strength 0.25% Soln] 1 applic TOP DAILY irrigation Glucagon 1 mg IM PRN PRN PRN Reason: Glucose Management Insulin Regular [HumuLIN R] See Protocol SUBCUT ACHS PRN PRN Reason: Glucose Management Enoxaparin [Lovenox] 30 mg SUBCUT Q24H Pentoxifylline [TRENtal] 400 mg PO TID Famotidine Tab [Pepcid Tab] 20 mg PO DAILY Memantine [Namenda] 5 mg PO BID Furosemide Inj [Lasix Inj] 40 mg IV DAILY Acetaminophen Tab [Tylenol Tab] 650 mg PO Q6H PRN #0 tablet PRN Reason: Pain Mild (1-3) And/Or Fever Alum/Mag/Simeth Max Str Liquid [Mylanta Max Strength Liquid] 15 ml PO Q6H PRN #0 udcup PRN Reason: Dyspepsia Bisacodyl Tab [Dulcolax Tab] 5 mg PO DAILY PRN #0 tablet PRN Reason: Constipation Multivit,Ca,Iron,Min/FA/Hmh403 [One Daily Healthy Weight Tab] 1 each PO DAILY diltiaZEM HCl [Diltiazem HCl] 60 mg PO Q8H Collagenase Oint [Santyl Oint] 1 applic TOP DAILY ointment fentaNYL 12 MCG/HR PATCH [Duragesic 12 Patch] 1 patch TRANSDERM Q3DAY patch - Follow Up or Referral - Forms/Instructions Exam - Constitutional Vitals: Period Temp Pulse Resp BP Sys/Ballard Pulse Ox Last 24 Hr 97.9 F-100.1 F 91-104 16-20 129-149/54-079 90-100 Exam: She is alert and oriented. Vital signs are normal. Pupils react to light. Throat is clear. Neck supple no bruits. Chest sounds clear except some dullness at the right base. Heart normal rate rhythm no murmurs. Abdomen soft nontender. PEG tube in place and she has a binder in place. Extremities she has bandages on both feet and over her sacrum. There is no edema. Calves nontender. Discharge Results Procedures and tests throughout hospitalization: Pending Orders 07/25/16 Urine Culture Routine Labs on day of discharge: Labs from last 24 hours 07/27/16 07/27/16 07/27/16 07:42 07:42 07:32 Hct 29.3 L Sodium 161 H* Potassium 4.2 Chloride 124 H Carbon Dioxide 28 Anion Gap 13.2 BUN 59 H Creatinine 3.00 H GFR Calculation 19 BUN/Creatinine Ratio 19.00 Glucose 116 H POC Glucose 131 H Calculated Osmolality 335.5 H Calcium 7.7 L Phosphorus 3.9 Magnesium 2.4 Prealbumin 14.0 L 07/27/16 07/27/16 07/27/16 05:35 05:15 00:09 Hct Sodium Potassium Chloride Carbon Dioxide Anion Gap BUN Creatinine GFR Calculation BUN/Creatinine Ratio Glucose POC Glucose 126 H 126 H 173 H Calculated Osmolality Calcium Phosphorus Magnesium Prealbumin 07/26/16 07/26/16 07/26/16 20:12 17:13 11:56 Hct 31.3 L 28.9 L Sodium Potassium Chloride Carbon Dioxide Anion Gap BUN Creatinine GFR Calculation BUN/Creatinine Ratio Glucose POC Glucose 108 H Calculated Osmolality Calcium Phosphorus Magnesium Prealbumin 07/26/16 11:30 Hct Sodium Potassium Chloride Carbon Dioxide Anion Gap BUN Creatinine GFR Calculation BUN/Creatinine Ratio Glucose POC Glucose 133 H Calculated Osmolality Calcium Phosphorus Magnesium Prealbumin Preliminary micro results at discharge 07/25/16 Unknown Urine Culture - Preliminary Urine,Catheterized Yeast - Impressions #1 GI bleed secondary to Ifeoma-Troy tear and gastritis #2 status post transfusion with hematocrit 29 #3 renal insufficiency with a creatinine 3.0 #4 sacral decubitus ulcer, improving #5 tract endocrine both lower extremities due to vascular insufficiency #6 dementia #7 congestive heart failure with right pleural effusion DS: Provider Date of admission: 07/24/16 14:11 Primary care physician: Nonstaff Physician Attending physician on admission: Morales Cook MD Consults: 07/26/16 10:53 Consult to Dietitian [CONS] Routine Reason for Dietitian: TF-Initiate/Manage Consult Comment: Tube feeding recommendations 07/26/16 10:58 Consult to Pharmacy [CONS] Routine Reason for Pharmacy Consult: Adjust Meds Renal Funct 07/24/16 16:30 Consult to Dietitian [CONS] Routine Reason for Dietitian: Dietary Consult Discharging clinician: Morales Cook MD Expected date of discharge: 07/27/16
[2016-07-27] MEDS: DEXTROSE 5% NACL 0.45% 1,000 ML IV SCH ×2 (10:24→12:52)
[2016-07-27 11:59] VITALS: BP 142/74
[2016-07-27] MEDS: SODIUM HYPOCHLORITE 0.25% IRRIG 473 ML BOTTLE TOP SCH (15:00)
[2016-07-27] MEDS: COLLAGENASE OINT 30 GM TUBE TOP SCH (15:00)
--- NOTE | 2016-07-28 11:18 | Pathology Report from [facility] ---
ACCESSION # : [id number] PATIENT NAME : Ирина Ramírez ORDERING DR : Prabhjot Arreola MD CLINICAL HX: Peg tube inserted POST-OP DX: CRISTAL SPECIMEN INFO: CRISTAL GROSS DESCRIPTION: The specimen is received in formalin labeled "ИРИНА RAMÍREZ " and consists a 0.5 x 0.3 cm aggregate of campa mucosal tissue, submitted in one cassette. DIAGNOSIS FOR ИРИНА RAMÍREZ: GASTRIC BIOPSIES: Chronic antral gastritis. H.pylori not seen on special stain. SERVICE DATE: 07/27/2016 REPORT DATE: 07/28/2016 PATHOLOGIST: Hugo De La Rosa M.D. [facility] NETWORKJessika
== END 2016-07-27 15:05 | DRG 368 ==
LOC: N.ICU 15:14 → N.TELEN 07-25 13:44
PROVIDERS: ADMIT Internal Medicine Pulmonary Disease; ATTEND Internal Medicine Pulmonary Disease
PROC: EGDWPEG (ICD-10-PCS; 2016-07-26 09:05)

== ENCOUNTER 2016-10-27 20:31 | Inpatient (IN) ==
--- NOTE | 2016-10-27 21:22 | Emergency Department Note ---
Arrival - Arrival Chief Complaint: Altered Mental Status Stated Complaint: TRANSFER FROM [facility] FOR POSSIBLE SEPSIS ED Nursing Triage Note: TRANSFER FOR POSSIBLE SEPSIS, PT HAS GANGRENE TO RIGHT FOOT. Mode of Arrival: Stretcher Time Seen by Provider: 10/27/16 21:19 - History of Present Illness HPI Narrative: The patient has a local physician in [place] named Dr. Walton. She is a resident of a [place] [facility]. Dr. Veloz has been following her right foot which appears somewhat gangrenous. The family sent her over here today because she was very lethargic this afternoon at the [place] [facility]. This has since resolved. Additionally she has new blisters popping up on her right hip which concerned him. The patient is diabetic. She is demented but awake right now. The family states she also has slight fever at the [place] [facility]. Allergies/Adverse Reactions: Allergies Allergy/AdvReac Type Severity Reaction Status Date / Time No Known Allergies Allergy Unverified 10/27/16 20:32 Home Medications: Home Medications Medication Instructions Recorded Confirmed Type Acetaminophen Tab [Tylenol Tab] 650 mg PEG Q6H PRN 10/27/16 10/27/16 History Atorvastatin [Lipitor] 40 mg PEG BEDTIME 10/27/16 10/27/16 History Collagenase Oint [Santyl Oint] 1 applic TOP DAILY 10/27/16 10/27/16 History Diltiazem HCl [Cardizem LA] 180 mg PEG DAILY 10/27/16 10/27/16 History Donepezil [Aricept] 5 mg PEG BEDTIME 10/27/16 10/27/16 History Donepezil [Aricept] 10 mg PEG DAILY 10/27/16 10/27/16 History HYDROcodone/ACETAMIN 10-325 [[place] 1 tablet PEG Q6H 10/27/16 10/27/16 History 10-325] Insulin Detemir [Levemir] 10 unit SUBCUT DAILY 10/27/16 10/27/16 History Insulin Detemir [Levemir] 20 unit SUBCUT BEDTIME 10/27/16 10/27/16 History Insulin Regular, Human [NovoLIN R] See Protocol SUBCUT AC 10/27/16 10/27/16 History Lactobacillus Acidophilus 1 each PEG DAILY 10/27/16 10/27/16 History [Acidophilus] Memantine [Namenda] 10 mg PEG BID 10/27/16 10/27/16 History Metoprolol Tartrate 25 mg PEG BID 10/27/16 10/27/16 History Omeprazole 40 mg PEG DAILY 10/27/16 10/27/16 History Pentoxifylline 400 mg PEG AC 10/27/16 10/27/16 History Sodium Chl/Potassium Chl Tab 1 tablet PEG DAILY 10/27/16 10/27/16 History [Thermotabs] Sodium Hypochlorite 0.25% Irr 1 applic TOP DAILY 10/27/16 10/27/16 History [Dakins 1/2 Strength 0.25% Soln] cloNIDine HCl [Clonidine HCl] 0.1 mg PEG BID 10/27/16 10/27/16 History Review of System - Review of System 12 point system: reviewed and no additional remarkable complaints except as stated Medical,Surgical,& Family Hx - Medical History Cardio: History of: Hypertension, [place] No history of: Pacemaker Neurology: History of: Dementia No history of: Seizures HEENT: History of: Eye Problem (Glasses), Dental Problems (Full dentures) Endocrine: History of: Diabetes Mellitus (IDDM), Diabetes Mellitus (NIDDM) Renal: No history of: Renal Problems (beatty catheter, incontinence/bed ridden) Gastrointestinal: History of: GERD, GI Problems (DYSPEPSIA, CONSTIPATION) Musculoskeletal: History of: Musculoskeletal Problems (OA left hip) Hematology: History of: Bleeding Problems (DVT RLE) Other: History of: Skin Problems (STAGE 4 SACRAL ULCER) - Surgical History HEENT Surgeries: Surgical HX of: Eye Surgery (Bilateral cataracts sx) Abdominal Surgeries: Patient denies: Abdominal Surgery (PEG TUBE) - Family History Family History: Reports;: Family Cancer, Family Diabetes, Family Hypertension - Social History Smoking Status: Never smoker Frequency of Alcohol Use: None Type of Drug Use: None Exam Physical Examination: General: Patient is well-developed and well-nourished with no acute distress noted. HEENT: The extraocular muscles are intact. Oropharynx is moist. There is no erythema or exudate. The tympanic membranes are shiny bilaterally. Neck: There is no adenopathy. Full range of motion is noted without pain. The trachea is midline. No JVD is present. Lungs: There is normal excursion of the chest with the lungs sounding clear bilaterally. No subcostal retractions are present. There is no point tenderness present. Heart: The heart has a regular rate and rhythm with no gallops or murmurs. Abdomen: The abdomen is nontender and nondistended with no rebound, guarding, or masses. Bowel sounds are normal. Back: The back demonstrates a normal appearance with no evidence of trauma. Genitourinary: Not examined. Extremities: The extremities demonstrate flexion contractures of both lower extremities with the right foot appearing gangrenous and partially covered by a heel splint. On the posterior right hip there is an area of bulla and open skin. Neuro: Cranial nerves II through XII are checked and intact. There is no focal motor or sensory deficit seen in the extremities. Skin: Skin is warm and dry with no evidence of rash. Vital Signs: Vital Signs Temperature 98.1 F 10/27/16 20:33 Pulse Rate 53 L 10/27/16 22:43 Respiratory Rate 16 10/27/16 22:43 Blood Pressure 148/58 10/27/16 22:43 O2 Sat by Pulse Oximetry 98 10/27/16 22:43 Course - Consultations Consultation #1: I called Dr. Veloz and discussed the patient with him. He wants me to place the patient in the hospital and give her fluids. I discussed specifically her electrolyte abnormalities which he was okay with. Time: 23:19 Results - Labs CBC & BMP: 10/27/16 21:25 10/27/16 21:25 Lab Results: I have reviewed the patients labs Disposition Clinical Impression: Right diabetic foot infection/gangrene, Dehydration, Hyperkalemia, Diabetes mellitus, Chronic kidney disease, stage IV (severe), Dementia, Bedridden, Malnutrition of moderate degree Case discussed with: patient, patient's family Disposition: Still a Patient Condition: Stable Time of Disposition: 23:20
[2016-10-27] MEDS ORDERED: SODIUM CHLORIDE 0.9% 500 ML IV STA (21:23)
[2016-10-27 21:45] LABS: Red Blood Count 3.11 MC/CUMM (3.8-5.5)
[2016-10-27 21:46] LABS: Basophils % 0.4 % (0.0-0.8); Eosinophils # 0.3 10*3/uL (0.0-0.87); Eosinophils % 2.8 % (0.00-10.9); Hemoglobin 8.6 GM/DL (12.0-16.0); Immature Granulocytes % 0.6 %; Immature Granulocytes Absolute 0.05 #; Lymphocytes # 1.6 10*3/uL (1.4-4.0); Lymphocytes % 18.1 % (21.3-54.2); Mean Corpuscular HGB Conc 27.9 GM/DL (32-36); Mean Corpuscular Hemoglobin 28 PG (27-34); Monocytes # 0.6 10*3/uL (0.11-0.8); Monocytes % 6.3 % (1.7-12.7); NRBC # 0.02 10*3/uL; Neutrophils # 6.5 10*3/uL (1.4-7.4); Neutrophils % 71.8 % (38.7-73.9); Platelet Count 270 T/CUMM (130-400); Red Cell Distribution Width 15.9 % (9.3-17.3)
[2016-10-27 22:07] LABS: Hematocrit 30.5 VOL% (35.7-47.0)
[2016-10-27 22:19] LABS: Calcium 8.3 MG/DL (8.5-10.1); Magnesium 3.8 MG/DL (1.8-2.4); Osmolality,Calculated 370.2 MOS/KG (273-304)
[2016-10-27 22:22] LABS: Potassium 6.7 MMOL/L (3.5-5.1)
[2016-10-27] MEDS ORDERED: ONDANSETRON 4 MG/2 ML VIAL IV PRN (23:21)
[2016-10-27] MEDS ORDERED: ACETAMINOPHEN 325 MG TABLET PO PRN (23:21)
[2016-10-27] MEDS ORDERED: BISACODYL 5 MG TABLET PO PRN (23:21)
[2016-10-27] MEDS ORDERED: SODIUM POLYSTYRENE SULFATE 15 GM/60 ML BOTTLE ONE (23:28)
[2016-10-27] MEDS ORDERED: SODIUM CHLORIDE 0.45% 1,000 ML IV SCH (23:30)
[2016-10-28 00:08] LABS: Anisocytosis 1+
[2016-10-28 00:09] LABS: Platelet Estimate Normal
[2016-10-28] MEDS: cefOXitin 1,000 MG in SODIUM CHLORIDE 0.9% 100 ML IV SCH ×2 (02:32→13:24)
[2016-10-28] MEDS: SODIUM POLYSTYRENE SULFATE 15 GM/60 ML BOTTLE PO STA ×2 (02:33→02:35)
[2016-10-28] MEDS ORDERED: ACETAMINOPHEN 325 MG TABLET PEG PRN (08:38)
[2016-10-28] MEDS ORDERED: GLUCAGON 1 MG VIAL IM PRN (08:41)
--- NOTE | 2016-10-28 08:45 | General Surg History&Physical ---
Assessment and Plan (1) Sacral decubitus ulcer, stage III Status: Acute Assessment and plan: Impression: Sacral decubitus ulcer stage III Starting wound care Current Visit: Yes (2) Decubitus ulcer, hip, right, unstageable Status: Acute Assessment and plan: Impression: Decubitus ulcer right hip with blistering probably stage II but unstageable at this time. 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 Ramírez is a 71 year old female -Spanish diabetic patient who has had a stroke and now is dysphasic requiring a tube feedings in order to maintain nutritional status. She has a sacral decubitus ulcer that has been stable and clean and is pretty much unchanged at this time. She had undergo a left AKA amputation several months ago and has healed this area up without any unusual problems. At the time the family did not want to do anything to the right she went out with some care to multiple ulcers of the right foot. She returns at this time with the ulcers on the right foot pretty much unchanged but she is uncomfortable has a good contracture at the knee joint now. She also has a new area on the right hip this mostly blister at this point time but needs to be managed under control. It may be time at this point to go ahead and speak to the family about possibility of amputation of the right leg. Home Medications Medication Instructions Recorded Confirmed Type Acetaminophen Tab [Tylenol Tab] 650 mg PEG Q6H PRN 10/27/16 10/27/16 History Atorvastatin [Lipitor] 40 mg PEG BEDTIME 10/27/16 10/27/16 History Collagenase Oint [Santyl Oint] 1 applic TOP DAILY 10/27/16 10/27/16 History Diltiazem HCl [Cardizem LA] 180 mg PEG DAILY 10/27/16 10/27/16 History Donepezil [Aricept] 5 mg PEG BEDTIME 10/27/16 10/27/16 History Donepezil [Aricept] 10 mg PEG DAILY 10/27/16 10/27/16 History HYDROcodone/ACETAMIN 10-325 [[place] 1 tablet PEG Q6H 10/27/16 10/27/16 History 10-325] Insulin Detemir [Levemir] 10 unit SUBCUT DAILY 10/27/16 10/27/16 History Insulin Detemir [Levemir] 20 unit SUBCUT BEDTIME 10/27/16 10/27/16 History Insulin Regular, Human [NovoLIN R] See Protocol SUBCUT AC 10/27/16 10/27/16 History Lactobacillus Acidophilus 1 each PEG DAILY 10/27/16 10/27/16 History [Acidophilus] Memantine [Namenda] 10 mg PEG BID 10/27/16 10/27/16 History Metoprolol Tartrate 25 mg PEG BID 10/27/16 10/27/16 History Omeprazole 40 mg PEG DAILY 10/27/16 10/27/16 History Pentoxifylline 400 mg PEG AC 10/27/16 10/27/16 History Sodium Chl/Potassium Chl Tab 1 tablet PEG DAILY 10/27/16 10/27/16 History [Thermotabs] Sodium Hypochlorite 0.25% Irr 1 applic TOP DAILY 10/27/16 10/27/16 History [Dakins 1/2 Strength 0.25% Soln] cloNIDine HCl [Clonidine HCl] 0.1 mg PEG BID 10/27/16 10/27/16 History Allergies Allergy/AdvReac Type Severity Reaction Status Date / Time No Known Allergies Allergy Unverified 10/27/16 20:32 Medical,Surgical,& Family Hx - Medical History Cardio: History of: Hypertension, [place] No history of: Pacemaker Neurology: History of: Dementia No history of: Seizures HEENT: History of: Eye Problem (Glasses), Dental Problems (Full dentures) Endocrine: History of: Diabetes Mellitus (IDDM), Diabetes Mellitus (NIDDM) Renal: No history of: Renal Problems (beatty catheter, incontinence/bed ridden) Gastrointestinal: History of: GERD, GI Problems (DYSPEPSIA, CONSTIPATION) Musculoskeletal: History of: Musculoskeletal Problems (OA left hip) Hematology: History of: Bleeding Problems (DVT RLE) Other: History of: Skin Problems (STAGE 4 SACRAL ULCER) - Surgical History HEENT Surgeries: Surgical HX of: Eye Surgery (Bilateral cataracts sx) Abdominal Surgeries: Patient denies: Abdominal Surgery (PEG TUBE) - Family History Family History: Reports;: Family Cancer, Family Diabetes, Family Hypertension - Social History Smoking Status: Never smoker Frequency of Alcohol Use: None Type of Drug Use: None Exam - Constitutional Vitals: Period Temp Pulse Resp BP Sys/Ballard Pulse Ox Last 24 Hr 97.0 F-98.2 F 51-54 13-18 137-175/59-75 96-100 General appearance: mild distress - Head Head exam: Present: normal inspection - ENT ENT exam: Present: normal exam - Neck Neck exam: Present: normal inspection - Respiratory Respiratory exam: Present: rales, rhonchi - Cardiovascular Cardiovascular exam: Present: RRR - GI/Abdominal GI/Abdominal exam: Present: hypoactive bowel sounds, soft, other (Gastrostomy tube in the left upper quadrant.). Absent: tenderness - Extremities Exam Extremities exam: Present: other (Healed left AKA amputation. Right foot has multiple ulcers at the heel and on the lateral aspect of the foot as well as the medial aspect of the first metatarsal head. They are all clean with thick dark eschars at this time but no sign of any gross infection. The whole foot looks chronically ischemic with some swelling and discoloration. She also has marked contraction at the knees at this time.) - Back Exam Back exam: Present: normal inspection - Neurological Exam Neurological exam: Present: alert, altered - Skin Skin exam: Present: normal color, warm, dry 12 point system: reviewed and no additional remarkable complaints except as stated Results - Labs CBC & BMP: 10/27/16 21:25 10/27/16 21:25 Lab Results: I have reviewed the past 24 hour labs
--- NOTE | 2016-10-28 09:01 | Physician Query Form ---
CLICK EDIT DOCUMENT TO SELECT QUERY ANSWER --> OK --> SIGN Joi Huang RN, CCDS Certified Clinical Senior Network Engineer W) [phone] (f) [phone] maria [email or web address] PROVIDERS: Make your selection(s) from the choices in EACH section by typing an "x" and enter comments in the comment section. Please use your independent medical judgment in providing your response. This request does not imply that any particular answer is desired or expected. CLINICAL INDICATORS: (Providers should not edit this section) The medical record indicates that the patient was admitted with right foot appearing gangrenous, "Stage 4 Sacral Ulcer", "Oreilly Catheter", Incontinence, "Bed ridden", "PEG tube" AND "extremities demonstrate flexion contractures of both lower extremities" Which, if any, of the following is an etiology of the above abnormalities and treatment rendered: ( ) Functional quadriplegia (complete immobility due to severe physical disability or frailty due to non-neurologic cause) ( ) Quadriplegia due to a neurologic cause, please specify: ( ) Paraplegia due to a neurologic cause, please specify: ( ) Hemiplegia/hemiparesis due to a neurologic cause, please specify: ( ) Complete Immobility (due to frailty or severe physical disability) ( ) Persistent vegetative state ( ) Critical illness myopathy (difficulty weaning patients from mechanical ventilation or prolonged recovery after illness) (x ) General weakness ( x) Other cause, please specify:Ischemic peripheral vascular disease/ atherosclerosis of extremities with rest pain and gangrene ( ) Clinically unable to determine COMMENTS: Use of terms such as suspected, likely, or probable (associated with a specific diagnosis that is being evaluated, monitored, or treated as if it exists) are acceptable and can be restated in the discharge summary if not ruled out. MTDD
[2016-10-28 09:06] LABS: Calcium 8.1 MG/DL (8.5-10.1); Osmolality,Calculated 368.5 MOS/KG (273-304)
--- NOTE | 2016-10-28 09:08 | EKG Report ---
Stationary ECG Study [facility] Test Date: 10/28/2016 9:08:11 AM Pat Name: SHIRA GOODWIN Department: Room: 333 Gender: F Drafter Construction: PATTIE : 1945 Requested by: Lamont Veloz Order Number: [id number] Reading MD: NICHOLE MIRELES Intervals [place] Rate: 58 P: 999 TX: 0 QRS: 71 QRSD: 157 T: 0 QT: 507 QTc: 504 Interpretive Statements Junctional rhythm with 1:1 VA conduction Electronically Signed On 11-01-16 08:27:24 CDT by NICHOLE MIRELES [email or web address]
[2016-10-28 09:09] LABS: Potassium 6.5 MMOL/L (3.5-5.1)
[2016-10-28] MEDS ORDERED: SODIUM POLYSTYRENE SULFATE 15 GM/60 ML BOTTLE PO ONE ×2 (09:21→14:41)
[2016-10-28] MEDS ORDERED: DEXTROSE 5% NACL 0.45% 1,000 ML IV SCH (09:30)
--- NOTE | 2016-10-28 09:49 | Hospitalist Consult Note ---
Assessment and Plan - Time spent with patient Time spent with patient: Greater than 30 minutes (1) Gangrene of foot Status: Acute Assessment and plan: Peripheral vascular disease with gangrene of the right foot--patient has gangrene of the remaining right foot with necrosis and odor. No discernible pulses in that foot. Dr. Veloz from surgery states she needs an amputation and he is awaiting to speak with the family. She had a previous left above-the- knee amputation several months ago for the same problem. Patient is not complaining of any pain at this time. Will help control the pain if she has issues. Sacral decubitus stage III--patient does have a sacral decubitus ulcer that has been there for a while. Dr. Veloz from surgery has been following this. There is no necrotic tissue and no need for debridement at this time. Wound care nurses been consulted for management. Right hip pressure ulcer--this is an unstageable ulcer at this time. Dr. Veloz would like to debride this as well as operate on the right foot. He is waiting to discuss with the patient's family. Hypernatremia most likely due to dehydration--switch patient to D5 and a half normal saline IV fluids to slowly correct sodium. We will also increase her free water through the PEG tube especially for discharge to alf. She is n.p.o. at this time so this will be held until after surgery. We will recheck a sodium at 4pm. Acute on chronic renal failure most likely due to dehydration--patient's baseline creatinine is around 2.5. Dr. Pickens does follow her for chronic kidney disease. This is since jumped up to 5.5 this admission. She is most likely dehydrated and when she can start having feedings again we will increase her free water through her PEG tube. Beatty has been placed for I&O. Will consult Dr. Pickens for further recommendations. Hyperkalemia--patient has been given Kayexalate for hyperkalemia. She is bradycardic with a regular rhythm and we will continue to watch her rhythm and potassium through daily labs. Chronic A. fib--patient is on aspirin and diltiazem. She is bradycardic at this time and I cannot see a record of where this is chronic. Will discuss with Dr. Walter about holding some of her heart medicines for now. She seems to be asymptomatic. sHe has seen Dr. Mckeon on a previous admission Diabetes--her home insulin has been restarted. Patient was placed on sliding scale insulin and blood sugars checked before meals and at bedtime. Hypertension--patient's home hypertensive medicines have been restarted. Her blood pressures are okay at this time though she is bradycardic. Will discuss this with Dr. Walter. His medicines may need to be adjusted. Patient's care has been coordinated with Dr. Veloz and Dr. Walter. As of this time patient is a full code. Further recommendations to follow. Current Visit: Yes (2) CVA, old, dysphagia Status: Acute Current Visit: Yes (3) Decubitus ulcer, hip, right, unstageable Status: Acute Current Visit: Yes (4) Dehydration Status: Acute Current Visit: Yes (5) Hyperkalemia Status: Acute Current Visit: Yes (6) Sacral decubitus ulcer, stage III Status: Acute Current Visit: Yes (7) Chronic kidney disease, stage IV (severe) Problem details: No indication for renal replacement therapy at this time. Status: Chronic Current Visit: Yes (8) Dementia Status: Chronic Current Visit: Yes (9) Diabetes mellitus Status: Chronic Current Visit: Yes Qualifiers: Diabetes mellitus type: type 2 Chronic kidney disease stage: stage 4 ( severe) (10) Hypernatremia Problem details: Calculated free water deficit 3.8L. Status: Acute Current Visit: No (11) Atrial fibrillation Status: Chronic Current Visit: No (12) Peripheral vascular disease Status: Chronic Current Visit: No History of Present Illness - Data of Consult Patient: known to practice within the last 3 years Consult date: 10/28/16 Requesting Physician: Lamont Veloz - Consult Narrative Reason for consult: medical management History of present illness: Ms. Ramírez is an unfortunate 71-year-old -Bhutanese female, alf resident, with medical history of chronic kidney disease, A. fib, hypertension, hyperlipidemia, dementia, CVA with dysphasia, and peripheral vascular disease with multiple admissions presenting to the ED last night with gangrene of her right foot. Patient is demented and she can answer some basic questions but the majority of her history was taken from the medical records. According to the nurses they states she is much better mentally than she was on her previous admission. Patient has been seen by Dr. Pickens and Dr. Mckeon, and Dr. Cook in the past. Patient was admitted by Dr. Veloz who has been treating her multiple wounds. She has a clean sacral ulcer, an unstageable right hip ulcer and gangrene of her right foot. Patient is in need of an amputation of her right leg and debridement of the right hip. Patient denies headache, nausea, vomiting , abdominal pain, shortness of breath, chest pain, or pain in lower extremities. Dr. Veloz has asked hospital medicine to help manage her multiple medical problems. Patient has a normal white count but she is hypernatremic and hyperkalemic with an acutely elevated creatinine. CC: Lamont Veloz MD - Home Medications and Allergies Home Medications: Home Medications Medication Instructions Recorded Confirmed Type Acetaminophen Tab [Tylenol Tab] 650 mg PEG Q6H PRN 10/27/16 10/27/16 History Atorvastatin [Lipitor] 40 mg PEG BEDTIME 10/27/16 10/27/16 History Collagenase Oint [Santyl Oint] 1 applic TOP DAILY 10/27/16 10/27/16 History Diltiazem HCl [Cardizem LA] 180 mg PEG DAILY 10/27/16 10/27/16 History Donepezil [Aricept] 5 mg PEG BEDTIME 10/27/16 10/27/16 History Donepezil [Aricept] 10 mg PEG DAILY 10/27/16 10/27/16 History HYDROcodone/ACETAMIN 10-325 [[place] 1 tablet PEG Q6H 10/27/16 10/27/16 History 10-325] Insulin Detemir [Levemir] 10 unit SUBCUT DAILY 10/27/16 10/27/16 History Insulin Detemir [Levemir] 20 unit SUBCUT BEDTIME 10/27/16 10/27/16 History Insulin Regular, Human [NovoLIN R] See Protocol SUBCUT AC 10/27/16 10/27/16 History Lactobacillus Acidophilus 1 each PEG DAILY 10/27/16 10/27/16 History [Acidophilus] Memantine [Namenda] 10 mg PEG BID 10/27/16 10/27/16 History Metoprolol Tartrate 25 mg PEG BID 10/27/16 10/27/16 History Omeprazole 40 mg PEG DAILY 10/27/16 10/27/16 History Pentoxifylline 400 mg PEG AC 10/27/16 10/27/16 History Sodium Chl/Potassium Chl Tab 1 tablet PEG DAILY 10/27/16 10/27/16 History [Thermotabs] Sodium Hypochlorite 0.25% Irr 1 applic TOP DAILY 10/27/16 10/27/16 History [Dakins 1/2 Strength 0.25% Soln] cloNIDine HCl [Clonidine HCl] 0.1 mg PEG BID 10/27/16 10/27/16 History Allergies/Adverse Reactions: Allergies Allergy/AdvReac Type Severity Reaction Status Date / Time No Known Allergies Allergy Unverified 10/27/16 20:32 Medical,Surgical,& Family Hx - Medical History Cardio: History of: Hypertension, [place] No history of: Pacemaker Neurology: History of: Dementia No history of: Seizures HEENT: History of: Eye Problem (Glasses), Dental Problems (Full dentures) Endocrine: History of: Diabetes Mellitus (IDDM), Diabetes Mellitus (NIDDM) Renal: No history of: Renal Problems (beatty catheter, incontinence/bed ridden) Gastrointestinal: History of: GERD, GI Problems (DYSPEPSIA, CONSTIPATION) Musculoskeletal: History of: Musculoskeletal Problems (OA left hip) Hematology: History of: Bleeding Problems (DVT RLE) Other: History of: Skin Problems (STAGE 4 SACRAL ULCER) - Surgical History HEENT Surgeries: Surgical HX of: Eye Surgery (Bilateral cataracts sx) Abdominal Surgeries: Patient denies: Abdominal Surgery (PEG TUBE) - Family History Family History: Reports;: Family Cancer, Family Diabetes, Family Hypertension - Social History Smoking Status: Never smoker Frequency of Alcohol Use: None Type of Drug Use: None Review of systems: A complete 10 system review of systems was obtained and pertinent negatives and positives are in HPI. Patient is demented and am unsure of validity of her review of systems. There is no family present. Exam - Constitutional Vitals: Period Temp Pulse Resp BP Sys/Ballard Pulse Ox Last 24 Hr 97.0 F-98.2 F 51-54 13-18 137-175/59-75 96-100 Exam: Constitutional System: No distress. No tremulousness. Head: Normocephalic, atraumatic. Ears, Nose and Throat System: No evidence of Otitis or Mastoiditis. No epistaxis or discharge Eyes System: Pupils equal, round, and reactive. Extraocular muscles intact. Neck: Supple, without adenopathy, No jugular venous distention. No thyromegaly, neck mass, or prior surgery apparent. Respiratory System: Chest clear to auscultation. Cardiovascular System: Heart with bradycardic. No murmur. GI System: Abdomen soft, nontender. Normoactive bowel sounds present. Musculoskeletal System: Well-healed AKA on the left. Right foot with necrotic tissue, wet gangrene, odor. No appreciable pulses. Neurological System: No aphasia Psychiatric System: Patient will answer simple questions Results - Labs CBC & BMP: 10/27/16 21:25 10/28/16 08:28 Lab Results: I have reviewed the past 24 hour labs - EKG EKG results: sinus rhythm EKG shows: bradycardia - Diagnostic Findings Procedure: Chest x-ray: pending
[2016-10-28] MEDS: MEMANTINE 10 MG TABLET PER TUBE SCH ×2 (09:59→21:32)
[2016-10-28] MEDS: DONEPEZIL 10 MG TABLET PEG SCH (09:59)
[2016-10-28] MEDS: PANTOPRAZOLE 40 MG TABLET PO SCH (10:00)
[2016-10-28] MEDS: DILTIAZEM CD 180 MG CAPSULE PO SCH (10:00)
[2016-10-28] MEDS: LACTOBACILLUS RHAMNOSUS GG CAPSULE PEG SCH (10:00)
[2016-10-28] MEDS: METOPROLOL TARTRATE 25 MG TABLET PEG SCH ×2 (10:00→21:32)
[2016-10-28] MEDS: cloNIDine 0.1 MG TABLET PEG SCH ×2 (10:00→21:31)
[2016-10-28] MEDS ORDERED: SKIN HEALING OINT (AQUAPHOR) 50 GM TUBE TOP PRN (10:06)
[2016-10-28] MEDS: INSULIN GLARGINE 100 UNIT/ML SUBCUT SCH ×2 (10:17→21:31)
[2016-10-28] MEDS: SODIUM HYPOCHLORITE 0.25% IRRIG 473 ML BOTTLE TOP SCH (10:18)
[2016-10-28] MEDS: BACITRACIN OINT 0.9 GM PACK TOP SCH (10:18)
[2016-10-28] MEDS: DESITIN 4OZ/NYSTATIN 15 GRAM MIXTURE PASTE TOP SCH ×2 (10:19→21:32)
[2016-10-28] MEDS ORDERED: INSULIN REGULAR 100 UNIT/ML SUBCUT SCH (11:30)
[2016-10-28 11:35] LABS: Apearance,Urine CLOUDY (Clear); Bacteria,Urine Moderate /HPF (Few); Bilirubin,Urine Negative (Negative); Blood, Urine Small mg/dL (Negative); Glucose,Urine (UA) Negative (Negative); Ketones,Urine Negative (Negative); Mucus,Urine Occasional /LPF (Occasional); Nitrite,Urine Negative (Negative); Protein,Urine 100 MG/DL; RBC,Urine 40 /HPF (0-4); Urine Color Yellow (Yellow); Urine Specific Gravity 1.017 (1.001-1.035); Urine Urobilinogen < 2.0 EU/DL (0.2-1.0); WBC,Urine 351 /HPF (0-6)
[2016-10-28] MEDS: INSULIN REGULAR 100 UNIT/ML SUBCUT SCH ×2 (13:24→17:55)
--- NOTE | 2016-10-28 13:55 | XRay Report ---
History is preop respiratory screening Comparison 09/13/2016 The heart remains enlarged with interval worsening of moderate left greater than right hazy and reticular pulmonary opacities. There remains mildly more confluent density in the retrocardiac left base and there is also a small to moderate pleural effusion. Small right pleural effusion remains Impression: Worsening of left greater than right infiltrates and/or asymmetric edema PROCEDURE INTERPRETED AT [facility] DEPARTMENT OF RADIOLOGY Final Report Signed by: Dr. Radha Miller
[2016-10-28 14:30] LABS: Calcium 8.1 MG/DL (8.5-10.1); Osmolality,Calculated 376.3 MOS/KG (273-304)
--- NOTE | 2016-10-28 18:03 | Nephrology Consult Note ---
History of Present Illness Chief complaint: renal failure History of present illness: Ms. Ramírez is a 71 year old female admitted with gangrene of the right leg. She has known peripheral vascular disease as well as chronic decubiti. She has chronic renal failure with a baseline creatinine between 2 and 2.5. She was noted to have acute worsening renal failure at the time of admission. She is also hyperkalemic. She has been receiving PEG tube feedings. Review of her medications indicates she was also getting sodium chloride and potassium chloride per PEG tube. She has significant dementia and is unable to give additional history Home Medications Medication Instructions Recorded Confirmed Type Acetaminophen Tab [Tylenol Tab] 650 mg PEG Q6H PRN 10/27/16 10/27/16 History Atorvastatin [Lipitor] 40 mg PEG BEDTIME 10/27/16 10/27/16 History Collagenase Oint [Santyl Oint] 1 applic TOP DAILY 10/27/16 10/27/16 History Diltiazem HCl [Cardizem LA] 180 mg PEG DAILY 10/27/16 10/27/16 History Donepezil [Aricept] 5 mg PEG BEDTIME 10/27/16 10/27/16 History Donepezil [Aricept] 10 mg PEG DAILY 10/27/16 10/27/16 History HYDROcodone/ACETAMIN 10-325 [Conrad 1 tablet PEG Q6H 10/27/16 10/27/16 History 10-325] Insulin Detemir [Levemir] 10 unit SUBCUT DAILY 10/27/16 10/27/16 History Insulin Detemir [Levemir] 20 unit SUBCUT BEDTIME 10/27/16 10/27/16 History Insulin Regular, Human [NovoLIN R] See Protocol SUBCUT AC 10/27/16 10/27/16 History Lactobacillus Acidophilus 1 each PEG DAILY 10/27/16 10/27/16 History [Acidophilus] Memantine [Namenda] 10 mg PEG BID 10/27/16 10/27/16 History Metoprolol Tartrate 25 mg PEG BID 10/27/16 10/27/16 History Omeprazole 40 mg PEG DAILY 10/27/16 10/27/16 History Pentoxifylline 400 mg PEG AC 10/27/16 10/27/16 History Sodium Chl/Potassium Chl Tab 1 tablet PEG DAILY 10/27/16 10/27/16 History [Thermotabs] Sodium Hypochlorite 0.25% Irr 1 applic TOP DAILY 10/27/16 10/27/16 History [Dakins 1/2 Strength 0.25% Soln] cloNIDine HCl [Clonidine HCl] 0.1 mg PEG BID 10/27/16 10/27/16 History Allergies Allergy/AdvReac Type Severity Reaction Status Date / Time No Known Allergies Allergy Unverified 10/27/16 20:32 Medical,Surgical,& Family Hx - Medical History Cardio: History of: Hypertension, ME No history of: Pacemaker Neurology: History of: Dementia No history of: Seizures HEENT: History of: Eye Problem (Glasses), Dental Problems (Full dentures) Endocrine: History of: Diabetes Mellitus (IDDM), Diabetes Mellitus (NIDDM) Renal: No history of: Renal Problems (beatty catheter, incontinence/bed ridden) Gastrointestinal: History of: GERD, GI Problems (DYSPEPSIA, CONSTIPATION) Musculoskeletal: History of: Musculoskeletal Problems (OA left hip) Hematology: History of: Bleeding Problems (DVT RLE) Other: History of: Skin Problems (STAGE 4 SACRAL ULCER) - Surgical History HEENT Surgeries: Surgical HX of: Eye Surgery (Bilateral cataracts sx) Abdominal Surgeries: Patient denies: Abdominal Surgery (PEG TUBE) - Family History Family History: Reports;: Family Cancer, Family Diabetes, Family Hypertension - Social History Smoking Status: Never smoker Frequency of Alcohol Use: None Type of Drug Use: None Review of Systems ROS unobtainable: due to dementia Exam - Vital Signs Vital signs: Period Temp Pulse Resp BP Sys/Ballard Pulse Ox Last 24 Hr 97.0 F-98.3 F 51-57 13-18 137-175/58-75 90-100 Exam: Gen.: Alert but confused ENT: Pupils equal round reactive to light. EOMs intact. Mucous membranes dry Neck: Supple. No JVD or bruit. Cardiovascular: Regular rate and rhythm. No murmur rub or gallop Lungs: Clear Abdomen: Soft. Nontender. Positive bowel sounds. No organomegaly Extremities: Left AKA. Right lower extremity dressed Results - Labs CBC & BMP: 10/27/16 21:25 10/28/16 14:04 Assessment and Plan (1) Chronic kidney disease, stage IV (severe) Status: Chronic Assessment and plan: 71-year-old woman admitted with: * CRF stage IV. Baseline creatinine 2.5 * Acute renal failure. She is clinically volume depleted. Agree with hypotonic IV fluid and water per PEG tube * Hypernatremia. This is due to volume depletion * Hyperkalemia. She was on a supplement which will has now been discontinued. Kayexalate has been given. * Peripheral vascular disease * Dementia * Cerebrovascular disease * Diabetes mellitus * Decubitus ulcer Current Visit: Yes (2) CVA, old, dysphagia Status: Acute Current Visit: Yes (3) Decubitus ulcer, hip, right, unstageable Status: Acute Current Visit: Yes (4) Dehydration Status: Acute Current Visit: Yes (5) Gangrene of foot Status: Acute Current Visit: Yes (6) Hyperkalemia Status: Acute Current Visit: Yes (7) Dementia Status: Chronic Current Visit: Yes (8) Diabetes mellitus Status: Chronic Current Visit: Yes Qualifiers: Diabetes mellitus type: type 2 Chronic kidney disease stage: stage 4 ( severe) (9) Hypernatremia Problem details: Calculated free water deficit 3.8L. Status: Acute Current Visit: No (10) UTI (urinary tract infection) Status: Acute Current Visit: No
[2016-10-28 21:19] LABS: Calcium 8.2 MG/DL (8.5-10.1); Osmolality,Calculated 376.6 MOS/KG (273-304)
[2016-10-28] MEDS: DONEPEZIL 5 MG TABLET PEG SCH (21:31)
[2016-10-28] MEDS: ATORVASTATIN 40 MG TABLET PEG SCH (21:32)
[2016-10-28] MEDS ORDERED: FUROSEMIDE 40 MG/4 ML VIAL IV ONE (23:31)
[2016-10-28] MEDS: DEXTROSE 5% 1,000 ML IV SCH (23:54)
[2016-10-29] MEDS: cefOXitin 1,000 MG in SODIUM CHLORIDE 0.9% 100 ML IV SCH ×2 (02:05→14:41)
[2016-10-29 04:46] LABS: Amorphous Crystals,Urine Occasional /HPF (Few); Apearance,Urine Slightly Hazy (Clear); Bacteria,Urine Occasional /HPF (Few); Bilirubin,Urine Negative (Negative); Blood, Urine Small mg/dL (Negative); Glucose,Urine (UA) 50 mg/dL (Negative); Hyaline Casts,Urine 3 /LPF (0-3); Ketones,Urine 5 mg/dL (Negative); Mucus,Urine Occasional /LPF (Occasional); Nitrite,Urine Negative (Negative); Protein,Urine 100 MG/DL; RBC,Urine 4 /HPF (0-4); Squamous Epithelial Cell,Urine Occasional /HPF (0-10); Urine Color Yellow (Yellow); Urine Specific Gravity 1.015 (1.001-1.035); Urine Urobilinogen < 2.0 EU/DL (0.2-1.0); WBC,Urine 6 /HPF (0-6)
[2016-10-29 05:15] LABS: Calcium 7.6 MG/DL (8.5-10.1); Magnesium 3.3 MG/DL (1.8-2.4); Osmolality,Calculated 371.7 MOS/KG (273-304); Potassium 5.3 MMOL/L (3.5-5.1)
[2016-10-29 05:21] LABS: Calcium 7.7 MG/DL (8.5-10.1); Magnesium 3.3 MG/DL (1.8-2.4); Osmolality,Calculated 376.5 MOS/KG (273-304); Phosphorous 6.2 MG/DL (2.5-4.9); Prealbumin 16.7 MG/DL (20-40)
[2016-10-29 08:16] LABS: INR 1.2; PT Patient Result 12.3 SECS; Partial Thromboplastin Time 26.3 SECS (0-40)
[2016-10-29 08:18] LABS: Basophils % 0.1 % (0.0-0.8); Eosinophils # 0.2 10*3/uL (0.0-0.87); Eosinophils % 2.5 % (0.00-10.9); Hematocrit 24.8 VOL% (35.7-47.0); Immature Granulocytes % 0.4 %; Immature Granulocytes Absolute 0.04 #; Lymphocytes # 1.4 10*3/uL (1.4-4.0); Lymphocytes % 14.2 % (21.3-54.2); Mean Corpuscular HGB Conc 28.2 GM/DL (32-36); Mean Corpuscular Hemoglobin 28 PG (27-34); Mean Corpuscular Volume 98.4 FL (87-102); Mean Platelet Volume 13.5 FL (9.6-12.0); Monocytes # 0.7 10*3/uL (0.11-0.8); Monocytes % 7.2 % (1.7-12.7); NRBC # 0.02 10*3/uL; Neutrophils # 7.3 10*3/uL (1.4-7.4); Neutrophils % 75.6 % (38.7-73.9); Platelet Count 251 T/CUMM (130-400); Red Blood Count 2.52 MC/CUMM (3.8-5.5); Red Cell Distribution Width 16.1 % (9.3-17.3); White Blood Count 9.7 T/CUMM (4-12)
[2016-10-29 08:43] LABS: Hypochromasia 1+
[2016-10-29 08:44] LABS: Microcytosis 1+; Ovalocytes Slight; Platelet Estimate Adequate
[2016-10-29] MEDS: METOPROLOL TARTRATE 25 MG TABLET PEG SCH ×2 (09:41→21:15)
[2016-10-29] MEDS: PANTOPRAZOLE 40 MG TABLET PO SCH (09:41)
[2016-10-29] MEDS: LACTOBACILLUS RHAMNOSUS GG CAPSULE PEG SCH (09:41)
[2016-10-29] MEDS: MEMANTINE 10 MG TABLET PER TUBE SCH ×2 (09:41→21:12)
[2016-10-29] MEDS: DONEPEZIL 10 MG TABLET PEG SCH (09:43)
[2016-10-29] MEDS: INSULIN REGULAR 100 UNIT/ML SUBCUT SCH ×3 (09:43→16:25)
[2016-10-29] MEDS: INSULIN GLARGINE 100 UNIT/ML SUBCUT SCH ×2 (09:43→21:13)
[2016-10-29] MEDS: DILTIAZEM CD 180 MG CAPSULE PO SCH (09:43)
[2016-10-29] MEDS: cloNIDine 0.1 MG TABLET PEG SCH ×2 (09:44→21:12)
[2016-10-29] MEDS: SODIUM HYPOCHLORITE 0.25% IRRIG 473 ML BOTTLE TOP SCH (09:44)
[2016-10-29] MEDS: DESITIN 4OZ/NYSTATIN 15 GRAM MIXTURE PASTE TOP SCH ×2 (09:45→21:16)
[2016-10-29] MEDS: BACITRACIN OINT 0.9 GM PACK TOP SCH (09:45)
--- NOTE | 2016-10-29 10:44 | General Surgery Progress Note ---
Assessment and Plan - Time spent with patient Time spent with patient: Less than 30 minutes (1) Sacral decubitus ulcer, stage III Status: Acute Assessment and plan: Impression: Sacral decubitus ulcer stage III Starting wound care 10/29/2026 Sacral ulcer remains stable and clean with no ischemic areas wound care has started Current Visit: Yes (2) Decubitus ulcer, hip, right, unstageable Status: Acute Assessment and plan: Impression: Decubitus ulcer right hip with blistering probably stage II but unstageable at this time. Plan: Starting wound care 10/29/2016. Right hip ulcer was debrided of loose skin at this time and there is one little dark area that is still fairly superficial. The ulcer remains unstageable and will continue to moisturize it and try to keep her off of it. Whether debridements can be required I would just have to give it some time and see. 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 Patient has underlying peripheral arterial disease of the right lower extremity with ulcerations of the foot and has a dry gangrene eschars over the heel and both lateral and medial aspect of the metatarsal heads. No obvious infection present but she is extremely tender with the leg drawn up at this time. I have had conversations with the son that I feel like that she probably needs to be considered for an amputation above the knee at this point to give her some pain relief improve the chances of care. We note the ulcers on the feet are not going to get better and not to heal and that we are see if she is capable of undergoing additional surgery to get this process under better control which will improve her general overall health. Current Visit: No Subjective Patient reports: Present: no new complaints, still having pain, tolerating liquids well, afebrile Exam - Constitutional Vitals: Period Temp Pulse Resp BP Sys/Ballard Pulse Ox Last 24 Hr 98.1 F-99.5 F 53-73 16-20 103-168/41-67 90-98 General appearance: mild distress - Head Head exam: Present: normal inspection - ENT ENT exam: Present: normal exam - Neck Neck exam: Present: normal inspection - Respiratory Respiratory exam: Present: rales - Cardiovascular Cardiovascular exam: Present: RRR - GI/Abdominal GI/Abdominal exam: Present: hypoactive bowel sounds, soft - Extremities Exam Extremities exam: Present: other (Area of the right hip has loose skin that we removed and there is a little dark eschar at the upper part of this but it remains unstageable area. Right foot ulcers are unchanged without gross infection at this time.) - Back Exam Back exam: Present: other (Sacral ulcer remains clean) - Neurological Exam Neurological exam: Present: alert, altered - Skin Skin exam: Present: normal color, warm, dry Results - Labs CBC & BMP: 10/29/16 07:36 10/29/16 03:31 Lab Results: I have reviewed the past 24 hour labs
--- NOTE | 2016-10-29 13:54 | Hospitalist Progress Note ---
Assessment and Plan (1) Hypernatremia Status: Acute Assessment and plan: 1)hypernatremia, hyperkalemia and KAM on CKD are slowly improving with hydration. Tolerating IVF and free water in her PEG. continue to monitor. We do not need to repeat kayexalate at this time. 2)DM- use SSI prn 3)chronic afib- aspirin and diltiazem, rate ok. 4)HTN- on her home meds, BP ok. 5)gangrenous foot- nurses say family does not want surgery for her . She also has decub at hip and sacrum. Dr Veloz knows them well and is discussing this with them. They may need to consider hospice if they do not want surgery. Current Visit: No (2) Insulin dependent diabetes mellitus Status: Acute Current Visit: No (3) Atrial fibrillation Status: Chronic Current Visit: No (4) CKD (chronic kidney disease) Status: Chronic Current Visit: No Qualifiers: Chronic kidney disease stage: stage 3 (moderate) Qualified Code(s): N18.3 - Chronic kidney disease, stage 3 (moderate) (5) Anemia Status: Acute Current Visit: No (6) Dementia Status: Chronic Current Visit: Yes (7) Bedridden Status: Acute Current Visit: Yes (8) Peripheral vascular disease Status: Chronic Current Visit: No (9) Severe malnutrition Status: Acute Current Visit: No (10) Status post above knee amputation of left lower extremity Status: Resolved Current Visit: No (11) Dehydration Status: Acute Current Visit: Yes (12) Hyperkalemia Status: Acute Current Visit: Yes (13) Decubitus ulcer, hip, right, unstageable Status: Acute Current Visit: Yes (14) CVA, old, dysphagia Status: Acute Current Visit: Yes (15) Gangrene of foot Status: Acute Current Visit: Yes Hospitalist: Subjective Interval history: Mrs Ramírez is about the same this morning. Wakes to voice. Denies pain. Does not answer questions or volunteer comments. No family present. Exam - Constitutional Vitals: Period Temp Pulse Resp BP Sys/Ballard Pulse Ox Last 24 Hr 98.1 F-99.5 F 57-81 16-20 103-168/41-67 88-98 General appearance: normal weight, no acute distress - Head Head exam: Present: normocephalic, atraumatic - Eye Eye exam: Present: EOMI. Absent: scleral icterus - Respiratory Respiratory exam: Present: clear to auscultation bilaterally - Cardiovascular Cardiovascular exam: Present: regular rate and rhythm - GI/Abdominal GI/Abdominal exam: Present: normal bowel sounds, soft. Absent: tenderness - Extremities Exam Extremities exam: Absent: edema - Neurological Exam Neurological exam: Present: altered (sleepy, baseline dementia) - Skin Skin exam: Present: warm, dry Results - Labs CBC & BMP: 10/29/16 07:36 10/29/16 03:31 Lab Results: I have reviewed the past 24 hour labs
--- NOTE | 2016-10-29 16:08 | Nephrology Progress Note ---
Nephrology - PN: Subj Interval history: She appears comfortable. She is less agitated than yesterday Exam (PN)-Nephrology - Vital Signs Vital signs: Period Temp Pulse Resp BP Sys/Ballard Pulse Ox Last 24 Hr 98.4 F-99.5 F 63-81 16-20 103-154/41-67 88-98 Exam: Gen.: Appears comfortable ENT: Pupils equal round reactive to light. EOMs intact. Mucous membranes dry Neck: Supple. No JVD or bruit. Cardiovascular: Regular rate and rhythm. No murmur rub or gallop Lungs: Clear Abdomen: Soft. Nontender. Positive bowel sounds. No organomegaly Extremities: Left AKA. Right lower extremity dressed - Lab 10/29/16 07:36 10/29/16 03:31 Most recent lab results Calcium 7.7 MG/DL (8.5-10.1) L 10/29/16 03:31 Phosphorus 6.2 MG/DL (2.5-4.9) H 10/29/16 03:31 Magnesium 3.3 MG/DL (1.8-2.4) H 10/29/16 03:31 Assessment and Plan (1) Chronic kidney disease, stage IV (severe) Status: Chronic Assessment and plan: 71-year-old woman admitted with: * CRF stage IV. Baseline creatinine 2.5 * Acute renal failure. She is clinically volume depleted. Agree with hypotonic IV fluid and water per PEG tube * Hypernatremia. This is due to volume depletion. Continue hypotonic fluid * Hyperkalemia. She was on a supplement which will has now been discontinued. Improved * Peripheral vascular disease * Dementia * Cerebrovascular disease * Diabetes mellitus * Decubitus ulcer Current Visit: Yes (2) CVA, old, dysphagia Status: Acute Current Visit: Yes (3) Decubitus ulcer, hip, right, unstageable Status: Acute Current Visit: Yes (4) Dehydration Status: Acute Current Visit: Yes (5) Gangrene of foot Status: Acute Current Visit: Yes (6) Hyperkalemia Status: Acute Current Visit: Yes (7) Dementia Status: Chronic Current Visit: Yes (8) Diabetes mellitus Status: Chronic Current Visit: Yes Qualifiers: Diabetes mellitus type: type 2 Chronic kidney disease stage: stage 4 ( severe) (9) Hypernatremia Problem details: Calculated free water deficit 3.8L. Status: Acute Current Visit: No (10) UTI (urinary tract infection) Status: Acute Current Visit: No
[2016-10-29] MEDS: DEXTROSE 5% 1,000 ML IV SCH (20:21)
[2016-10-29] MEDS: DONEPEZIL 5 MG TABLET PEG SCH (21:12)
[2016-10-29] MEDS: ATORVASTATIN 40 MG TABLET PEG SCH (21:12)
[2016-10-30] MEDS: cefOXitin 1,000 MG in SODIUM CHLORIDE 0.9% 100 ML IV SCH ×2 (00:56→15:13)
[2016-10-30] MEDS: DEXTROSE 5% 1,000 ML IV SCH ×2 (03:01→07:34)
[2016-10-30] MEDS: INSULIN REGULAR 100 UNIT/ML SUBCUT SCH ×3 (08:13→21:08)
[2016-10-30] MEDS: INSULIN GLARGINE 100 UNIT/ML SUBCUT SCH ×2 (09:27→22:20)
--- NOTE | 2016-10-30 09:34 | Hospitalist Progress Note ---
Assessment and Plan (1) Hypernatremia Problem details: Calculated free water deficit 3.8L. Status: Acute Assessment and plan: Patient is receiving fluids for this but we don't have any lab work today I'll order a BMP today and tomorrow pseudohypernatremia is doing a little bit worried that she may be getting volume overloaded really hear much on exam will watch carefully Current Visit: No (2) Acute on chronic renal failure Status: Acute Assessment and plan: Creatinines running around 5 currently potassiums down to 53 Current Visit: No (3) Gas gangrene Status: Acute Assessment and plan: Looks bad that they do not want any surgery, currently on Mefoxin on give 1 dose of vancomycin Current Visit: No Hospitalist: Subjective Interval history: Patient unable to give any history today Exam - Constitutional Vitals: Period Temp Pulse Resp BP Sys/Ballard Pulse Ox Last 24 Hr 98.4 F-101.5 F 56-81 18-21 103-142/40-59 88-100 Exam: Constitutional: General appearance is normal Eyes: Pupils equal round react to light and accommodation conjunctiva and lids are normal Neck: supple without masses Respiratory: Respiratory effort is normal. Lungs rhonchi to auscultation. Resonant to percussion. Cardiac: Regular rate and rhythm without murmur rub or gallop. PMI at the midclavicular line by palpation. Carotid arteries 2+ palpation no bruits GI: Bowel sounds normoactive, no tenderness or rebound tenderness, no organomegaly Extremities: no clubbing cyanosis or edema Results - Labs CBC & BMP: 10/29/16 07:36 10/29/16 03:31
[2016-10-30] MEDS: METOPROLOL TARTRATE 25 MG TABLET PEG SCH (10:12)
[2016-10-30] MEDS: MEMANTINE 10 MG TABLET PER TUBE SCH ×2 (10:12→22:21)
[2016-10-30] MEDS: LACTOBACILLUS RHAMNOSUS GG CAPSULE PEG SCH (10:12)
[2016-10-30] MEDS: DILTIAZEM CD 180 MG CAPSULE PO SCH (10:13)
[2016-10-30] MEDS: DONEPEZIL 10 MG TABLET PEG SCH (10:13)
[2016-10-30] MEDS: PANTOPRAZOLE 40 MG TABLET PO SCH (10:14)
[2016-10-30] MEDS: cloNIDine 0.1 MG TABLET PEG SCH (10:15)
[2016-10-30] MEDS: SODIUM HYPOCHLORITE 0.25% IRRIG 473 ML BOTTLE TOP SCH (10:16)
--- NOTE | 2016-10-30 10:17 | Event Note ---
10/30/2016 Patient is stable at this time even though her urine output is down creatinine is up 5. Her wounds on the sacrum looks good of the right hip is stable and certainly she has a ulcers on her foot. Have not seen any family since the first day but have discussed with that time without the need for possible amputation. She certainly is in no physical shape for a big surgery at this point but hopefully we could tune her up and maybe get that leg off will help her improve her general status.
[2016-10-30] MEDS ORDERED: VANCOMYCIN INJ 500 MG in SODIUM CHLORIDE 0.9% 100 ML IV ONE (10:30)
[2016-10-30 11:10] LABS: Calcium 7.5 MG/DL (8.5-10.1); Magnesium 3.1 MG/DL (1.8-2.4); Potassium 5.3 MMOL/L (3.5-5.1)
--- NOTE | 2016-10-30 12:04 | Nephrology Progress Note ---
Nephrology - PN: Subj Interval history: Ms. Ramírez is seen in follow-up of her renal failure and hypernatremia. Serum sodium is down to 115 creatinine stable about 5-1/2. She is receiving D5W and that should continue to correct her hyponatremia. Blood pressures are reasonable. She has PEG tube and overall is quite chronically ill. She has no edema and no jugular venous distention. Exam (PN)-Nephrology - Vital Signs Vital signs: Period Temp Pulse Resp BP Sys/Ballard Pulse Ox Last 24 Hr 98.4 F-101.5 F 56-79 18-21 103-142/40-59 95-100 - Lab 10/29/16 07:36 10/30/16 10:29 Most recent lab results Calcium 7.5 MG/DL (8.5-10.1) L 10/30/16 10:29 Phosphorus 6.2 MG/DL (2.5-4.9) H 10/29/16 03:31 Magnesium 3.1 MG/DL (1.8-2.4) H 10/30/16 10:29
--- NOTE | 2016-10-30 12:35 | XRay Report ---
XR chest 1V portable Indication: Congestion. Chest one view: Comparison 2 days ago shows worsening opacification in bilateral perihilar lungs in both lung bases. Cardiomegaly is progressed as well. Impression: Progressive CHF decompensation. PROCEDURE INTERPRETED AT [facility] DEPARTMENT OF RADIOLOGY Final Report Signed by: Kevin Metcalf M.D.
[2016-10-30] MEDS: BACITRACIN OINT 0.9 GM PACK TOP SCH (15:14)
[2016-10-30] MEDS ORDERED: EPINEPHrine 1 MG/ML VIAL ONE (18:05)
[2016-10-30] MEDS ORDERED: SODIUM BICARBONATE 50 MEQ/50 ML SYRINGE IV ONE ×4 (18:05→19:43)
--- NOTE | 2016-10-30 18:39 | Event Note ---
I was called to the patient's room for a CODE BLUE at 1807. On my arrival, CPR was in progress. The patient was apneic and without pulse. She was being bagged. Epinephrine had been given . Rhythm was PEA. Apparently the patient was noted to be bradycardic on the monitor and suddenly she went into asystole. An attempt was made to intubate her, however, there was a malfunction of the suctioning system and the patient's oropharynx was full of yellowish fluid which I could not suction. I had to wait on a new suction container and tubing. After that arrived she was suctioned and a 7 ET tube was placed easily on the first attempt with good color change and bilateral breath sounds. Breath sounds were very wet and noisy. She has likely aspirated. ACLS protocol was followed. She received more doses of epi and 1 of bicarbonate. We regained a pulse on her. She appeared to be in sinus around 70. Dr. Veloz was on scene. Care was transferred to him and the patient is being transferred to the ICU.
[2016-10-30] MEDS: DOPamine 800 MG/250 ML PREMIX IV SCH (18:45)
[2016-10-30] MEDS ORDERED: DOPamine 800 MG/250 ML PREMIX IV ONE (18:50)
[2016-10-30] MEDS ORDERED: NOREPINEPHRINE 4 MG/4 ML VIAL IV ONE (18:58)
[2016-10-30] MEDS: NOREPINEPHRINE 8 MG in SODIUM CHLORIDE 0.9% 242 ML IV SCH (19:00)
--- NOTE | 2016-10-30 19:20 | Event Note ---
10/30/2016 1915 hrs. Patient had been moved down to the unit at this time because she had undergone cardiopulmonary arrest. It appeared that she had aspirated and then bradycardia down. She was resuscitated on the floor and transferred to the unit. On arrival to the unit she was stable for a little while began to bradycardia down again and we had to coder operator a second time given her some epinephrine in order to get her heart rate back. I was able insert a central line so that we could get central Levophed started as well as other pressors on her at this point. Chest x-ray showed the line to be in good position as well as the endotracheal tube. We got gases and EKG and other labs pending at this time. I have talked to the family twice at this point indicating the seriousness of the situation certainly they are very upset. I have indicated to them I am not sure how well she is going to do with that she will survive this or not but we can continue to be supportive of her at this point with pressors and ventilatory support.
[2016-10-30 19:35] LABS: Basophils % 0.1 % (0.0-0.8); Eosinophils % 0.1 % (0.00-10.9); Hematocrit 26.4 VOL% (35.7-47.0); Immature Granulocytes % 2.3 %; Immature Granulocytes Absolute 0.33 #; Lymphocytes # 2.7 10*3/uL (1.4-4.0); Lymphocytes % 19.1 % (21.3-54.2); Mean Corpuscular HGB Conc 26.5 GM/DL (32-36); Mean Corpuscular Hemoglobin 28 PG (27-34); Mean Corpuscular Volume 104.8 FL (87-102); Mean Platelet Volume 12.9 FL (9.6-12.0); Monocytes # 0.5 10*3/uL (0.11-0.8); Monocytes % 3.5 % (1.7-12.7); NRBC # 0.25 10*3/uL; Neutrophils # 10.8 10*3/uL (1.4-7.4); Neutrophils % 74.9 % (38.7-73.9); Platelet Count 246 T/CUMM (130-400); Red Blood Count 2.52 MC/CUMM (3.8-5.5); Red Cell Distribution Width 16.1 % (9.3-17.3); White Blood Count 14.4 T/CUMM (4-12)
[2016-10-30 19:36] LABS: ABG Base Excess -9.7 MMOL/L (-2.5-2.5); ABG HCO3 19.9 MMOL/L (20-26); ABG Oxygen Saturation 98.8 % (95-100); ABG PCO2 65.3 MM HG (35-48); ABG PO2 228.4 MM HG (80-95); ABG TCO2 21.9 MMOL/L (23-27)
[2016-10-30 19:37] LABS: ABG PH 7.101 (7.35-7.45)
[2016-10-30 19:48] LABS: Calcium 7.5 MG/DL (8.5-10.1); Magnesium 3.1 MG/DL (1.8-2.4); Osmolality,Calculated 350.9 MOS/KG (273-304); Potassium 4.3 MMOL/L (3.5-5.1)
[2016-10-30] MEDS: CLINDAMYCIN INJ 300 MG in PREMIX 1 EACH IV SCH (20:00)
--- NOTE | 2016-10-30 20:03 | XRay Report ---
XR chest 1V portable Indication: Central line placement. Chest one view: Since 114, patient has been intubated with endotracheal tube 4 cm cephalad ishan. Right IJ central line is present tip in the SVC. Cardiomegaly and hazy obscuration of the lung bases persists unchanged. Defibrillator pad now present. No pneumothorax. Impression: Central line and intubation as described. Otherwise no change. PROCEDURE INTERPRETED AT [facility] DEPARTMENT OF RADIOLOGY Final Report Signed by: Kevin Metcalf M.D.
[2016-10-30] MEDS: DESITIN 4OZ/NYSTATIN 15 GRAM MIXTURE PASTE TOP SCH ×2 (20:08→22:26)
[2016-10-30 20:30] LABS: ABG Base Excess -5.9 MMOL/L (-2.5-2.5); ABG HCO3 20.9 MMOL/L (20-26); ABG Oxygen Saturation 99.4 % (95-100); ABG PCO2 47.8 MM HG (35-48); ABG PH 7.259 (7.35-7.45); ABG PO2 322.7 MM HG (80-95); ABG TCO2 22.4 MMOL/L (23-27); Allen Test Positive; Pt O2 Delivery Device Ventilator
--- NOTE | 2016-10-30 21:02 | Event Note ---
Hospitalist ELICIA BAEZ documentation Responded to ELICIA BAEZ called overhead at 1858 to the ICU for Ms. Ramírez. When I entered the room she was receiving chest compressions, bag mask ventilation via endotracheal tube, and Dr. Veloz was at the head of the bed preparing for central line insertion. Initial rhythm on knitting machine tender was PEA. She was given 1 mg epinephrine and 1 amp of sodium bicarbonate. On the next pulse check she had a strong carotid pulse, sinus tachycardia in the 120s on the monitor. Dopamine and Levophed infusions were already running. Dr. Veloz proceeded to insert central line into right internal jugular vein. Patient's heart rate and blood pressure started to decline and so 1/2 mg of epinephrine was given as well as the order to start an epinephrine infusion. Follow-up chest x-ray shows central line and endotracheal tube to be in good position. Arterial blood gases showed significantly improved acute hypercapnic respiratory failure. Patient with history of dementia, diabetes, atrial fibrillation, heart failure, stroke, CKD stage IV, with sacral pressure ulcers that was admitted for gangrene of her right foot. Cultures from the urine and wound are growing gram- positive cocci and Providencia sensitive to second generation cephalosporin. Blood cultures are no growth to date. She is currently covered with antibiotics that include cefoxitin, clindamycin, and intermittently dosed vancomycin for renal function. In addition to the 3 pressors she is also on stress dose IV glucocorticoids. Ms. Ramírez has had uneventful day, with multiple episodes of aspiration and 2 cardiac arrests. Her family has been present and updated on the developments in her condition. She has an exceedingly grim prognosis.
[2016-10-30] MEDS: methylPREDNISolone SOD SUC 40 MG/1 ML VIAL IV SCH (21:10)
[2016-10-30] MEDS: SODIUM CHLORIDE 0.9% 1,000 ML IV SCH (21:10)
[2016-10-30] MEDS: DONEPEZIL 5 MG TABLET PEG SCH (22:20)
[2016-10-30] MEDS: ATORVASTATIN 40 MG TABLET PEG SCH (22:25)
[2016-10-31] MEDS: NOREPINEPHRINE 8 MG in SODIUM CHLORIDE 0.9% 242 ML IV SCH ×2 (00:46→21:42)
[2016-10-31] MEDS: cefOXitin 1,000 MG in SODIUM CHLORIDE 0.9% 100 ML IV SCH ×2 (01:30→14:11)
[2016-10-31] MEDS: CLINDAMYCIN INJ 300 MG in PREMIX 1 EACH IV SCH ×4 (02:30→21:19)
[2016-10-31 04:07] LABS: Allen Test Positive; Pt O2 Delivery Device Ventilator
[2016-10-31] MEDS: SODIUM CHLORIDE 0.9% 1,000 ML IV SCH ×3 (04:30→21:45)
[2016-10-31 04:39] LABS: ABG Base Excess -1.6 MMOL/L (-2.5-2.5); ABG HCO3 22.3 MMOL/L (20-26); ABG Oxygen Saturation 93.9 % (95-100); ABG PH 7.435 (7.35-7.45); ABG PO2 70.9 MM HG (80-95); ABG TCO2 23.4 MMOL/L (23-27)
[2016-10-31 04:55] LABS: Hematocrit 23.8 VOL% (35.7-47.0); Hemoglobin 6.9 GM/DL (12.0-16.0); Immature Granulocytes % 0.6 %; Immature Granulocytes Absolute 0.04 #; Lymphocytes # 0.5 10*3/uL (1.4-4.0); Lymphocytes % 6.5 % (21.3-54.2); Mean Corpuscular Hemoglobin 28 PG (27-34); Mean Corpuscular Volume 95.6 FL (87-102); Mean Platelet Volume 12.9 FL (9.6-12.0); Monocytes # 0.4 10*3/uL (0.11-0.8); Monocytes % 6.4 % (1.7-12.7); NRBC # 0.08 10*3/uL; Neutrophils % 86.5 % (38.7-73.9); Platelet Count 217 T/CUMM (130-400); Red Blood Count 2.49 MC/CUMM (3.8-5.5); Red Cell Distribution Width 15.9 % (9.3-17.3); White Blood Count 6.9 T/CUMM (4-12)
[2016-10-31] MEDS: methylPREDNISolone SOD SUC 40 MG/1 ML VIAL IV SCH ×3 (05:12→21:19)
[2016-10-31 05:30] LABS: Burr Cells Slight; Elliptocytes Few; Hypochromasia 1+; Microcytosis 1+; Platelet Estimate Adequate
[2016-10-31 05:39] LABS: Calcium 7.2 MG/DL (8.5-10.1); Magnesium 2.8 MG/DL (1.8-2.4); Osmolality,Calculated 358.6 MOS/KG (273-304); Potassium 4.4 MMOL/L (3.5-5.1)
--- NOTE | 2016-10-31 07:15 | Hospitalist Progress Note ---
Assessment and Plan (1) Cardiopulmonary arrest with successful resuscitation Status: Acute Assessment and plan: Patient was felt to have arrested last night after aspirating she is clinically very ill she has gangrene referred for which I'm told surgery was not done because family refused they do want everything done at this point she has a creatinine of 6, gangrene of her foot and now aspiration Thought is this patient will not survive this event and I'm not sure how much disease she has from the standpoint of hypoxic encephalopathy Current Visit: Yes (2) Hypernatremia Problem details: Calculated free water deficit 3.8L. Status: Acute Assessment and plan: Patient is receiving fluids for this but we don't have any lab work today I'll order a BMP today and tomorrow pseudohypernatremia is doing a little bit worried that she may be getting volume overloaded really hear much on exam will watch carefully 10/31 sodium is down to 153 Current Visit: No (3) Acute on chronic renal failure Status: Acute Assessment and plan: Creatinines running around 5 currently potassiums down to 53 4 is worse after her cardiac arrest potassium is doing well 4.4 Current Visit: No (4) Gas gangrene Status: Acute Assessment and plan: Looks bad that they do not want any surgery, currently on Mefoxin on give 1 dose of vancomycin 10/31 patient continues to do poorly here Dr. Veloz following Current Visit: No Hospitalist: Subjective Interval history: At 630 last night patient had a cardiopulmonary arrest it looks like she had aspirated. Patient Began when she was moved down to the intensive care unit with a bradycardic arrest central line was placed by Dr. Veloz. Chest x-ray last night showed good ET tube placement no acute infiltrates may be some effusion on the right. Arterial blood gases showed good oxygenation there were able to wean down her FiO2 and had been increased to 6. Probably this morning she is unable to respond no active seizing at this point Exam - Constitutional Vitals: Period Temp Pulse Resp BP Sys/Ballard Pulse Ox Last 24 Hr 97.0 F-97.5 F 43-125 10-22 70-204/39-97 94-100 Exam: Constitutional: General appearance is normal, ET tube in place Eyes: Pupils equal round react to light and accommodation conjunctiva and lids are normal Neck: supple without masses Respiratory: Respiratory effort is normal. Lungs rhonchi to auscultation. Resonant to percussion. Cardiac: Regular rate and rhythm without murmur rub or gallop. PMI at the midclavicular line by palpation. Carotid arteries 2+ palpation no bruits GI: Bowel sounds normoactive, no tenderness or rebound tenderness, no organomegaly Extremities: no clubbing cyanosis or edema Results - Labs CBC & BMP: 10/31/16 04:30 10/31/16 04:30
--- NOTE | 2016-10-31 08:12 | Pulmonology Consult Note ---
History of Present Illness Chief complaint: Mechanical ventilation. Cardiac arrest. Aspiration History of present illness: Ms. Ramírez is a 71 year old black female whom I have been asked to see in pulmonary consultation for management of her pulmonary problems and management of mechanical ventilation. This patient was admitted to ICU after an arrest that included PEA. She was observed to have aspirated. She is unable to give a review of systems because she is sedated. She is also on pressor agents. Allergies. None Home medicines. See below Hospital medicines. See below Past history. Recent debridement of right foot. Patient needed an amputation but family refused. 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 Her blood pressure. Family history. Positive for cancer diabetes and high blood pressure Social history patient lives in a group home and is said to have never been a smoker. Microbiology. Probable dementia from the urine and probably tension from the wound culture. Also several yet unidentified organisams. Lab. Sodium is 153. Potassium 4.4. Creatinine 6.0 BUNs 146. Glucose is 237. H&H is 6.9/23.8. White count 6900 with 86 segs. Calcium is low at 7.2. Magnesium is 2.8. Chest x-rays. Chest x-rays on 10/29/1703 817 shows significant congestive heart failure.Chest x-ray on 10/31/2016 showed bilateral pleural effusions and increased interstitial markings that appear to be resolving congestive heart failure. There is some bibasilar atelectasis bilaterally Medicines have been reviewed. This patient is on dopamine support her blood pressure. She is on clindamycin. Solu-Medrol 40 IV push every 8. We will add Fortaz 500 every 12 to treat probably dementia. Physical exam. Vital signs. See below Neck. No meningismus Chest congested Heart lateral PMI Abdomen few bowel sounds PEG tube is present Extremities. No obvious deep venous thrombophlebitis. Previous amputation. The remainder the physical exam is negative and noncontributory Impression. 1. Acute cardiac arrest. 2. Heart disease 3. Congestive heart failure 4. Aspiration 5. Dementia 6. Renal failure 7. Anemia 8. Peripheral artery disease with lower extremity infections. 9. See past history Plan. 1. Add Fortaz to cover probable dementia 2. Cleocin for aspiration 3. Fiberoptic bronchoscopy 4. Doppler venograms to lower extremities. 5. BNP 6. Mechanical ventilation weaning protocol 7. Mechanical ventilation physical therapy protocol 8. Proton pump inhibitor protocol 9. Deep venous thrombophlebitis prevention protocol 10. See orders Home Medications Medication Instructions Recorded Confirmed Type Acetaminophen Tab [Tylenol Tab] 650 mg PEG Q6H PRN 10/27/16 10/27/16 History Atorvastatin [Lipitor] 40 mg PEG BEDTIME 10/27/16 10/27/16 History Collagenase Oint [Santyl Oint] 1 applic TOP DAILY 10/27/16 10/27/16 History Donepezil [Aricept] 5 mg PEG BEDTIME 10/27/16 10/27/16 History Donepezil [Aricept] 10 mg PEG DAILY 10/27/16 10/27/16 History HYDROcodone/ACETAMIN 10-325 [[place] 1 tablet PEG Q6H 10/27/16 10/27/16 History 10-325] Insulin Detemir [Levemir] 10 unit SUBCUT DAILY 10/27/16 10/27/16 History Insulin Detemir [Levemir] 20 unit SUBCUT BEDTIME 10/27/16 10/27/16 History Insulin Regular, Human [NovoLIN R] See Protocol SUBCUT AC 10/27/16 10/27/16 History Lactobacillus Acidophilus 1 each PEG DAILY 10/27/16 10/27/16 History [Acidophilus] Memantine [Namenda] 10 mg PEG BID 10/27/16 10/27/16 History Metoprolol Tartrate 25 mg PEG BID 10/27/16 10/27/16 History Omeprazole 40 mg PEG DAILY 10/27/16 10/27/16 History Pentoxifylline 400 mg PEG AC 10/27/16 10/27/16 History Sodium Chl/Potassium Chl Tab 1 tablet PEG DAILY 10/27/16 10/27/16 History [Thermotabs] Sodium Hypochlorite 0.25% Irr 1 applic TOP DAILY 10/27/16 10/27/16 History [Dakins 1/2 Strength 0.25% Soln] cloNIDine HCl [Clonidine HCl] 0.1 mg PEG BID 10/27/16 10/27/16 History dilTIAZem HCl [Cardizem LA] 180 mg PEG DAILY 10/27/16 10/27/16 History Allergies Allergy/AdvReac Type Severity Reaction Status Date / Time No Known Allergies Allergy Unverified 10/27/16 20:32 Exam (Pulmonay) H&P - Constitutional Vitals: Period Temp Pulse Resp BP Sys/Ballard Pulse Ox Last 24 Hr 97.0 F-97.5 F 43-125 10-22 70-204/39-97 94-100 Medical,Surgical,& Family Hx - Medical History Cardio: History of: Hypertension, [place] No history of: Pacemaker Neurology: History of: Dementia No history of: Seizures HEENT: History of: Eye Problem (Glasses), Dental Problems (Full dentures) Endocrine: History of: Diabetes Mellitus (IDDM), Diabetes Mellitus (NIDDM) Renal: No history of: Renal Problems (beatty catheter, incontinence/bed ridden) Gastrointestinal: History of: GERD, GI Problems (DYSPEPSIA, CONSTIPATION) Musculoskeletal: History of: Musculoskeletal Problems (OA left hip) Hematology: History of: Bleeding Problems (DVT RLE) Other: History of: Skin Problems (STAGE 4 SACRAL ULCER) - Surgical History HEENT Surgeries: Surgical HX of: Eye Surgery (Bilateral cataracts sx) Abdominal Surgeries: Patient denies: Abdominal Surgery (PEG TUBE) - Family History Family History: Reports;: Family Cancer, Family Diabetes, Family Hypertension - Social History Smoking Status: Never smoker Frequency of Alcohol Use: None Type of Drug Use: None Results - Labs CBC & BMP: 10/31/16 04:30 10/31/16 04:30
[2016-10-31] MEDS ORDERED: SODIUM CHLORIDE 0.9% 250 ML IV PRN (08:34)
--- NOTE | 2016-10-31 09:06 | General Surgery Progress Note ---
Assessment and Plan - Time spent with patient Time spent with patient: Less than 30 minutes (1) Sacral decubitus ulcer, stage III Status: Acute Assessment and plan: Impression: Sacral decubitus ulcer stage III Starting wound care 10/29/2026 Sacral ulcer remains stable and clean with no ischemic areas wound care has started Current Visit: Yes (2) Decubitus ulcer, hip, right, unstageable Status: Acute Assessment and plan: Impression: Decubitus ulcer right hip with blistering probably stage II but unstageable at this time. Plan: Starting wound care 10/29/2016. Right hip ulcer was debrided of loose skin at this time and there is one little dark area that is still fairly superficial. The ulcer remains unstageable and will continue to moisturize it and try to keep her off of it. Whether debridements can be required I would just have to give it some time and see. 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 Patient has underlying peripheral arterial disease of the right lower extremity with ulcerations of the foot and has a dry gangrene eschars over the heel and both lateral and medial aspect of the metatarsal heads. No obvious infection present but she is extremely tender with the leg drawn up at this time. I have had conversations with the son that I feel like that she probably needs to be considered for an amputation above the knee at this point to give her some pain relief improve the chances of care. We note the ulcers on the feet are not going to get better and not to heal and that we are see if she is capable of undergoing additional surgery to get this process under better control which will improve her general overall health. Current Visit: No (5) Aspiration of blood with respiratory symptoms Status: Acute Assessment and plan: 10/31/2016. Status post aspiration with cardiopulmonary arrest on the ventilator at this time. Gases appear to be improved at this time no further aspirations during the night. Current Visit: Yes (6) Cardiac arrest due to respiratory disorder Status: Acute Assessment and plan: 10/31/2016. Status post cardiopulmonary arrest related to her aspiration. Gases are better today she is on the ventilator and was scheduled for [facility] sometime today. Mentally she is not showing much response to some fascial changes at times. She is a previous CVA and not sure that she did not have some other complications mentally associated with the arrest. Creatinine is low at 23 and she is scheduled get some blood today. Pressor agents have been tapered down and her blood pressure seems to be holding. Creatinine is holding at 6 urine output is low. Patient remains critical but stable at this time. We will get neurology to look at her and begin the process of seeing much mental activity we still have. Current Visit: Yes Subjective Patient reports: Present: no new complaints, afebrile Exam - Constitutional Vitals: Period Temp Pulse Resp BP Sys/Ballard Pulse Ox Last 24 Hr 97.0 F-97.5 F 43-125 10-22 70-204/39-97 94-100 General appearance: severe distress - Head Head exam: Present: normal inspection - ENT ENT exam: Present: normal exam - Neck Neck exam: Present: normal inspection - Respiratory Respiratory exam: Present: rales, rhonchi - Cardiovascular Cardiovascular exam: Present: RRR - GI/Abdominal GI/Abdominal exam: Present: hypoactive bowel sounds, soft. Absent: tenderness - Extremities Exam Extremities exam: Present: other (Right foot unchanged at this time. Right hip ulcer still unstageable but probably a stage II.) - Back Exam Back exam: Present: other (Sacral ulcer is remaining clean and stable) - Neurological Exam Neurological exam: Present: altered, other (Patient on the ventilator making minimal activity) - Skin Skin exam: Present: normal color, warm, dry Results - Labs CBC & BMP: 10/31/16 04:30 10/31/16 04:30 Lab Results: I have reviewed the past 24 hour labs
--- NOTE | 2016-10-31 09:11 | Nephrology Progress Note ---
Nephrology - PN: Subj Interval history: Ms. Ramírez is seen in follow-up of her renal impairment. She experienced cardiopulmonary arrest on the floor yesterday and is now in the intensive care unit on a ventilator. Yesterday she was marginally responsive. Her baseline neurological status was compromised. She experienced profound hypotension overnight but is now off pressors. Her potassium is 4.4 creatinine is 6 with a BUN 146. Her outlook is poor and benefits of any heroics are questionable. Exam (PN)-Nephrology - Vital Signs Vital signs: Period Temp Pulse Resp BP Sys/Ballard Pulse Ox Last 24 Hr 97.0 F-97.5 F 43-125 10-22 70-204/39-97 94-100 - Lab 10/31/16 04:30 10/31/16 04:30 Most recent lab results ABG pH 7.435 (7.35-7.45) 10/31/16 04:00 ABG pCO2 34.0 MM HG (35-48) L 10/31/16 04:00 ABG pO2 70.9 MM HG (80-95) L 10/31/16 04:00 ABG HCO3 22.3 MMOL/L (20-26) 10/31/16 04:00 ABG O2 Saturation 93.9 % (95-100) L 10/31/16 04:00 Calcium 7.2 MG/DL (8.5-10.1) L 10/31/16 04:30 Phosphorus 6.2 MG/DL (2.5-4.9) H 10/29/16 03:31 Magnesium 2.8 MG/DL (1.8-2.4) H 10/31/16 04:30
--- NOTE | 2016-10-31 10:10 | EKG Report ---
Stationary ECG Study [facility] Test Date: 10/30/2016 7:23:29 PM Pat Name: SHIRA GOODWIN Department: Room: 117 Gender: F System Admin: Gabriel ADAMS : 1945 Requested by: Lamont Veloz Order Number: [id number] Reading MD: BRANDON PHILIP Intervals [place] Rate: 68 P: 999 [place]: 0 QRS: -78 QRSD: 122 T: 84 QT: 415 QTc: 432 Interpretive Statements UNCERTAIN REGULAR RHYTHM RIGHT BUNDLE BRANCH BLOCK LEFT ANTERIOR FASCICULAR BLOCK Electronically Signed On 11-01-16 16:41:33 CDT by BRANDON PHILIP [email or web address]
--- NOTE | 2016-10-31 10:15 | Event Note ---
In hospital diagnostic and therapeutic fiberoptic bronchoscopy with right upper lung, right lower lung, left upper lung and left lower lung large. Specimens were sent for Gram stain, bacterial culture, fungal stains and cultures. This is a 71-year-old black female with multiple medical problems. She had a cardiorespiratory arrest and required intubation mechanical ventilation. She was observed to aspirate. She has retained gastric contents and secretions. Her cough is ineffective. Her chest x-ray shows bibasilar atelectasis. For these reasons she is evaluated with fiberoptic bronchoscopy. Endotracheal tube was in good position. Distal trachea was erythematous and the ishan was sharp. Right mainstem bronchus contained some bubbly thin secretions that might be related to congestive heart failure. Beyond that there was thick tenacious material which appeared to be a mixture of gastric contents and pulmonary secretions. There was erosive friable bronchitis in the right mainstem bronchus. There were retained secretions and aspirin in the right upper lung which was lavaged until clear. The right middle lung appeared to be spared. There were erosions in the right lower lung. Was a good bit of retained aspirate and pulmonary secretions and each segment was lavaged until clear. The specimens were sent for the studies mentioned above. The left mainstem bronchus was markedly eroded and friable but not stenotic. This appeared to be an acute gastric acid injury. Left upper lung was full of secretions and aspirate. This area was lavaged until clear. The left lower lung contain areas of erosive friable nonstenotic bronchitis and again there were a lot of pulmonary secretions and gastric contents. The segments of the left lower lung were lavaged until clear and the specimens were sent for studies mentioned above. The patient tolerated procedure well there were no complications Impression. 1. Acute cardiorespiratory arrest requiring intubation mechanical ventilation #2 ineffective cough 3. Acute aspiration of gastric contents 4. Retained common nares secretions and gastric content. 5. Bilateral erosive friable nonstenotic bronchitis secondary to acute aspiration injury. 6. Bibasilar atelectasis secondary to #4 Plan. 1. Follow-up chest x-ray 2. Check bronchoscopy specimens. 3. Patient is already on proper dose of antibiotics and steroids
[2016-10-31] MEDS: BACITRACIN OINT 0.9 GM PACK TOP SCH (11:00)
[2016-10-31] MEDS: LACTOBACILLUS RHAMNOSUS GG CAPSULE PEG SCH (11:00)
[2016-10-31] MEDS: MEMANTINE 10 MG TABLET PER TUBE SCH ×2 (11:00→21:21)
[2016-10-31] MEDS: DONEPEZIL 10 MG TABLET PEG SCH (11:00)
[2016-10-31] MEDS: PANTOPRAZOLE 40 MG VIAL IV SCH (11:00)
--- NOTE | 2016-10-31 11:01 | EKG Report ---
Stationary ECG Study [facility] Test Date: 10/31/2016 11:01:59 AM Pat Name: SHIRA GOODWIN Department: Room: 117 Gender: F Yarn Hauler: PATTIE : 1945 Requested by: Lamont Veloz Order Number: [id number] Reading MD: BRANDON PHILIP Intervals [place] Rate: 91 P: 66 AL: 201 QRS: 52 QRSD: 90 T: -89 QT: 381 QTc: 430 Interpretive Statements SINUS RHYTHM MODERATE T-WAVE ABNORMALITY Electronically Signed On 11-01-16 16:55:02 CDT by BRANDON PHILIP [email or web address]
[2016-10-31] MEDS: DESITIN 4OZ/NYSTATIN 15 GRAM MIXTURE PASTE TOP SCH ×2 (11:04→21:17)
[2016-10-31] MEDS: INSULIN GLARGINE 100 UNIT/ML SUBCUT SCH ×2 (11:08→21:20)
[2016-10-31] MEDS: INSULIN REGULAR 100 UNIT/ML SUBCUT SCH ×3 (11:08→19:23)
[2016-10-31] MEDS: SODIUM HYPOCHLORITE 0.25% IRRIG 473 ML BOTTLE TOP SCH (11:11)
[2016-10-31] MEDS: cefTAZidime 500 MG in SODIUM CHLORIDE 0.9% 100 ML IV SCH (11:11)
--- NOTE | 2016-10-31 13:51 | Neurology Consult Note ---
History of Present Illness History of present illness: Ms. Ramírez is a 71 year old black female whom I have been asked to see in Neurology consultation for management of her pulmonary problems and management of mechanical ventilation. This patient was admitted to ICU after an arrest that included PEA. She was observed to have aspirated. She is unable to give a review of systems because she is sedated. She is also on pressor agents. She has a history of CVA in the past. She has left BKA. She was quoted 2. Last time she was coded last night. Each of the code lasted for 10-15 minutes. At the present time she has had some jerking motions every so often. She is unresponsive. She is on epinephrine Home Medications Medication Instructions Recorded Confirmed Type Acetaminophen Tab [Tylenol Tab] 650 mg PEG Q6H PRN 10/27/16 10/27/16 History Atorvastatin [Lipitor] 40 mg PEG BEDTIME 10/27/16 10/27/16 History Collagenase Oint [Santyl Oint] 1 applic TOP DAILY 10/27/16 10/27/16 History Donepezil [Aricept] 5 mg PEG BEDTIME 10/27/16 10/27/16 History Donepezil [Aricept] 10 mg PEG DAILY 10/27/16 10/27/16 History HYDROcodone/ACETAMIN 10-325 [[place] 1 tablet PEG Q6H 10/27/16 10/27/16 History 10-325] Insulin Detemir [Levemir] 10 unit SUBCUT DAILY 10/27/16 10/27/16 History Insulin Detemir [Levemir] 20 unit SUBCUT BEDTIME 10/27/16 10/27/16 History Insulin Regular, Human [NovoLIN R] See Protocol SUBCUT AC 10/27/16 10/27/16 History Lactobacillus Acidophilus 1 each PEG DAILY 10/27/16 10/27/16 History [Acidophilus] Memantine [Namenda] 10 mg PEG BID 10/27/16 10/27/16 History Metoprolol Tartrate 25 mg PEG BID 10/27/16 10/27/16 History Omeprazole 40 mg PEG DAILY 10/27/16 10/27/16 History Pentoxifylline 400 mg PEG AC 10/27/16 10/27/16 History Sodium Chl/Potassium Chl Tab 1 tablet PEG DAILY 10/27/16 10/27/16 History [Thermotabs] Sodium Hypochlorite 0.25% Irr 1 applic TOP DAILY 10/27/16 10/27/16 History [Dakins 1/2 Strength 0.25% Soln] cloNIDine HCl [Clonidine HCl] 0.1 mg PEG BID 10/27/16 10/27/16 History dilTIAZem HCl [Cardizem LA] 180 mg PEG DAILY 10/27/16 10/27/16 History Allergies Allergy/AdvReac Type Severity Reaction Status Date / Time No Known Allergies Allergy Unverified 10/27/16 20:32 ROS unobtainable: due to endotracheal tube Medical,Surgical,& Family Hx - Medical History Cardio: History of: Hypertension, [place] No history of: Pacemaker Neurology: History of: Dementia No history of: Seizures HEENT: History of: Eye Problem (Glasses), Dental Problems (Full dentures) Endocrine: History of: Diabetes Mellitus (IDDM), Diabetes Mellitus (NIDDM) Renal: No history of: Renal Problems (beatty catheter, incontinence/bed ridden) Gastrointestinal: History of: GERD, GI Problems (DYSPEPSIA, CONSTIPATION) Musculoskeletal: History of: Musculoskeletal Problems (OA left hip) Hematology: History of: Bleeding Problems (DVT RLE) Other: History of: Skin Problems (STAGE 4 SACRAL ULCER) - Surgical History HEENT Surgeries: Surgical HX of: Eye Surgery (Bilateral cataracts sx) Abdominal Surgeries: Patient denies: Abdominal Surgery (PEG TUBE) - Family History Family History: Reports;: Family Cancer, Family Diabetes, Family Hypertension - Social History Smoking Status: Never smoker Frequency of Alcohol Use: None Type of Drug Use: None Exam - Constitutional Vitals: Period Temp Pulse Resp BP Sys/Ballard Pulse Ox Last 24 Hr 97.0 F-97.2 F 53-125 10-22 70-204/39-97 94-100 Exam: GENERAL: Patient is in no acute distress. NECK: Neck is supple. There is no JVD. No carotid bruits present. No thyroid masses. CVS: First and second heart sounds are normal. There is no S3 present. Regular rate and rhythm. RESPIRATORY: Lungs are clear to auscultation without any rales or rhonchi. ABDOMEN: Soft and non-tender. Bowel sounds are present. There is no hepatosplenomegaly. EXT: There is no palpable edema. Peripheral pulses are present. Skin: No rashes Central Nervous system: General: On vent unresponsive Speech: None Comprehension: None Facial expressions: Normal Cranial Nerves: Pupils are 2 mm nonreactive. Doll's head eye movements are absent. no facial asymmetry seen. 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 Current Visit: Yes (2) Myoclonic jerking Status: Acute Assessment and plan: Add Depacon 500 mg IV every 8 EEG in the morning Current Visit: Yes
[2016-10-31] MEDS: VALPROIC ACID INJ 500 MG in SODIUM CHLORIDE 0.9% 100 ML IV SCH ×2 (14:29→21:17)
[2016-10-31] MEDS: ATORVASTATIN 40 MG TABLET PEG SCH (21:18)
[2016-10-31] MEDS: DONEPEZIL 5 MG TABLET PEG SCH (21:19)
[2016-10-31] MEDS: DOPamine 800 MG/250 ML PREMIX IV SCH (21:43)
[2016-11-01] MEDS: DEXTROSE 50% 25 GM/50 ML VIAL IV PRN ×2 (00:14→06:12)
[2016-11-01] MEDS: INSULIN REGULAR 100 UNIT/ML SUBCUT SCH ×4 (00:18→18:22)
[2016-11-01] MEDS: CLINDAMYCIN INJ 300 MG in PREMIX 1 EACH IV SCH ×4 (02:57→20:32)
[2016-11-01] MEDS: SODIUM CHLORIDE 0.9% 1,000 ML IV SCH (02:58)
[2016-11-01] MEDS: cefOXitin 1,000 MG in SODIUM CHLORIDE 0.9% 100 ML IV SCH (02:58)
[2016-11-01 03:59] LABS: Pt O2 Delivery Device Ventilator
[2016-11-01 04:00] LABS: ABG Base Excess -3.5 MMOL/L (-2.5-2.5); ABG HCO3 19.8 MMOL/L (20-26); ABG Oxygen Saturation 95.8 % (95-100); ABG PCO2 29.5 MM HG (35-48); ABG PH 7.444 (7.35-7.45); ABG PO2 85.2 MM HG (80-95); ABG TCO2 20.7 MMOL/L (23-27)
[2016-11-01 05:12] LABS: Basophils % 0.1 % (0.0-0.8); Hematocrit 27.9 VOL% (35.7-47.0); Immature Granulocytes % 0.9 %; Immature Granulocytes Absolute 0.12 #; Lymphocytes # 0.6 10*3/uL (1.4-4.0); Mean Corpuscular HGB Conc 31.5 GM/DL (32-36); Mean Corpuscular Hemoglobin 29 PG (27-34); Mean Corpuscular Volume 90.9 FL (87-102); Mean Platelet Volume 12.5 FL (9.6-12.0); Monocytes # 0.5 10*3/uL (0.11-0.8); Monocytes % 3.6 % (1.7-12.7); NRBC # 0.07 10*3/uL; Neutrophils # 12.7 10*3/uL (1.4-7.4); Neutrophils % 91.4 % (38.7-73.9); Platelet Count 191 T/CUMM (130-400); Red Cell Distribution Width 15.8 % (9.3-17.3)
[2016-11-01 05:23] LABS: Hemoglobin 8.8 GM/DL (12.0-16.0); Red Blood Count 3.07 MC/CUMM (3.8-5.5); White Blood Count 13.8 T/CUMM (4-12)
[2016-11-01 05:34] LABS: Band Neutrophils 10 % (0-10); Hypochromasia 1+; Lymphocytes 4 % (20-55); Platelet Estimate Adequate; Segmented Neutrophils 83 % (50-85); Total Cells Counted 100
[2016-11-01 05:35] LABS: Burr Cells Slight; Microcytosis 1+; Ovalocytes Slight
[2016-11-01] MEDS: VALPROIC ACID INJ 500 MG in SODIUM CHLORIDE 0.9% 100 ML IV SCH ×3 (06:03→23:08)
[2016-11-01] MEDS: methylPREDNISolone SOD SUC 40 MG/1 ML VIAL IV SCH ×3 (06:04→20:32)
[2016-11-01 06:10] LABS: Albumin 1.4 G/DL (3.4-5.0); Bilirubin,Total 0.7 MG/DL (0.2-1.0); Calcium 7.1 MG/DL (8.5-10.1); Magnesium 2.8 MG/DL (1.8-2.4); Phosphorous 7.6 MG/DL (2.5-4.9); Potassium 3.4 MMOL/L (3.5-5.1); Prealbumin 10.9 MG/DL (20-40); Total Protein 5.7 G/DL (6.4-8.3)
--- NOTE | 2016-11-01 07:35 | XRay Report ---
Referring Physician: Lamont Veloz Exam: XR chest 1V portable Date: November 01, 2016 at 3:23 AM Reason: Aspiration Comparison: Chest one view portable October 30, 2016 Findings: A right IJ catheter, feeding tube and endotracheal tube are again in place. The patient is slightly rotated to the left today. The cardiac silhouette is again mildly enlarged. There are diffuse hazy opacities within both lungs, right greater than left. This is concerning for pulmonary edema, but there could also be pneumonia or aspiration. No pneumothorax is identified, but there is mild bilateral pleural fluid. The osseous structures appear stable. Impression: There has been no significant change. PROCEDURE INTERPRETED AT [facility] DEPARTMENT OF RADIOLOGY Final Report Signed by: Dr. Hugh Melendez
--- NOTE | 2016-11-01 07:46 | EKG Report ---
Stationary ECG Study [facility] Test Date: 11/01/2016 7:46:46 AM Pat Name: SHIRA GOODWIN Department: Room: 117 Gender: F Celery Tier: CAROLINE : 1945 Requested by: Lamont Veloz Order Number: [id number] Reading MD: BRANDON PHILIP Intervals [place] Rate: 73 P: 21 [place]: 144 QRS: 35 QRSD: 100 T: 252 QT: 464 QTc: 489 Interpretive Statements SINUS RHYTHM WITH OCCASIONAL PACS Electronically Signed On 11-01-16 17:07:02 CDT by BRANDON PHILIP [email or web address]
[2016-11-01] MEDS: INSULIN GLARGINE 100 UNIT/ML SUBCUT SCH ×2 (08:24→21:11)
[2016-11-01] MEDS: PANTOPRAZOLE 40 MG VIAL IV SCH (08:30)
[2016-11-01] MEDS: LACTOBACILLUS RHAMNOSUS GG CAPSULE PEG SCH (08:48)
[2016-11-01] MEDS: MEMANTINE 10 MG TABLET PER TUBE SCH ×2 (08:48→21:12)
[2016-11-01] MEDS: DESITIN 4OZ/NYSTATIN 15 GRAM MIXTURE PASTE TOP SCH ×2 (08:49→20:35)
[2016-11-01] MEDS: DONEPEZIL 10 MG TABLET PEG SCH (08:49)
--- NOTE | 2016-11-01 09:01 | Neurology Progress Note ---
Neurology - PN : Subjective Interval history: Mr. Ramírez seems to be doing about the same. No more jerking movements reported. Unresponsive. Eyes are open. Not following any commands. Exam (Progress Note) - Constitutional Vitals: Period Temp Pulse Resp BP Sys/Ballard Pulse Ox Last 24 Hr 96.9 F-97.4 F 73-90 20-20 121-181/53-87 96-100 Exam: GENERAL: Patient is in no acute distress. NECK: Neck is supple. There is no JVD. No carotid bruits present. No thyroid masses. CVS: First and second heart sounds are normal. There is no S3 present. Regular rate and rhythm. RESPIRATORY: Lungs are clear to auscultation without any rales or rhonchi. ABDOMEN: Soft and non-tender. Bowel sounds are present. There is no hepatosplenomegaly. EXT: There is no palpable edema. Peripheral pulses are present. Skin: No rashes Central Nervous system: General: On vent unresponsive, eyes open Speech: None Comprehension: None Facial expressions: Normal Cranial Nerves: Pupils are 2 mm nonreactive. Doll's head eye movements are absent. no facial asymmetry seen. 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 Current Visit: Yes (2) Myoclonic jerking Status: Acute Assessment and plan: Continue Depacon 500 mg IV every 8 For EEG today Prognosis is guarded Current Visit: Yes
--- NOTE | 2016-11-01 09:37 | General Surgery Progress Note ---
Assessment and Plan (1) Sacral decubitus ulcer, stage III Status: Acute Assessment and plan: Impression: Sacral decubitus ulcer stage III Starting wound care 10/29/2026 Sacral ulcer remains stable and clean with no ischemic areas wound care has started Current Visit: Yes (2) Decubitus ulcer, hip, right, unstageable Status: Acute Assessment and plan: Impression: Decubitus ulcer right hip with blistering probably stage II but unstageable at this time. Plan: Starting wound care 10/29/2016. Right hip ulcer was debrided of loose skin at this time and there is one little dark area that is still fairly superficial. The ulcer remains unstageable and will continue to moisturize it and try to keep her off of it. Whether debridements can be required I would just have to give it some time and see. 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 Patient has underlying peripheral arterial disease of the right lower extremity with ulcerations of the foot and has a dry gangrene eschars over the heel and both lateral and medial aspect of the metatarsal heads. No obvious infection present but she is extremely tender with the leg drawn up at this time. I have had conversations with the son that I feel like that she probably needs to be considered for an amputation above the knee at this point to give her some pain relief improve the chances of care. We note the ulcers on the feet are not going to get better and not to heal and that we are see if she is capable of undergoing additional surgery to get this process under better control which will improve her general overall health. Current Visit: No (5) Aspiration of blood with respiratory symptoms Status: Acute Assessment and plan: 10/31/2016. Status post aspiration with cardiopulmonary arrest on the ventilator at this time. Gases appear to be improved at this time no further aspirations during the night. Current Visit: Yes (6) Cardiac arrest due to respiratory disorder Status: Acute Assessment and plan: 10/31/2016. Status post cardiopulmonary arrest related to her aspiration. Gases are better today she is on the ventilator and was scheduled for [facility] sometime today. Mentally she is not showing much response to some fascial changes at times. She is a previous CVA and not sure that she did not have some other complications mentally associated with the arrest. Creatinine is low at 23 and she is scheduled get some blood today. Pressor agents have been tapered down and her blood pressure seems to be holding. Creatinine is holding at 6 urine output is low. Patient remains critical but stable at this time. We will get neurology to look at her and begin the process of seeing much mental activity we still have. 11/01/2016. Patient remains on the ventilator but seems to be a little bit more alert with responding to verbal stimuli at this time. Vital signs are stable hematocrits of 2:27 units. Creatinine is still 6. Right now she remains in supportive stage with all wounds clean and stable at this time. Waiting for neurology's evaluation. Current Visit: Yes Subjective Patient reports: Present: no new complaints, bowel movement, afebrile Exam - Constitutional Vitals: Period Temp Pulse Resp BP Sys/Ballard Pulse Ox Last 24 Hr 96.9 F-97.4 F 73-90 20-20 121-181/53-87 96-100 General appearance: severe distress - Head Head exam: Present: normal inspection - Eye Eye exam: Present: EOMI Pupils: Present: BREANN - ENT ENT exam: Present: normal exam - Neck Neck exam: Present: normal inspection - Respiratory Respiratory exam: Present: rales, rhonchi - Cardiovascular Cardiovascular exam: Present: RRR - GI/Abdominal GI/Abdominal exam: Present: hypoactive bowel sounds, soft. Absent: tenderness - Extremities Exam Extremities exam: Present: other (Wounds of the right foot are stable and clean without infection at this time. Right hip ulcer remains stable still appears to be unstageable but probably stage II.) - Back Exam Back exam: Present: other (Sacral ulcer as a stage III and remained stable and clean with some good granulating tissue present.) - Neurological Exam Neurological exam: Present: altered. Absent: alert - Skin Skin exam: Present: normal color, warm, dry Results - Labs CBC & BMP: 11/01/16 05:00 11/01/16 05:00 Lab Results: I have reviewed the past 24 hour labs
[2016-11-01] MEDS: SODIUM HYPOCHLORITE 0.25% IRRIG 473 ML BOTTLE TOP SCH (09:39)
[2016-11-01] MEDS: BACITRACIN OINT 0.9 GM PACK TOP SCH (09:39)
[2016-11-01] MEDS ORDERED: DEXTROSE 5% NACL 0.45% 1,000 ML IV SCH (10:30)
--- NOTE | 2016-11-01 10:36 | Pulmonology Progress Note ---
Pulmonary - PN: Subj Interval history: Is a 71-year-old black female whom I saw in pulmonary consultation on 10/31/2016. She is on mechanical ventilation. She was admitted to ICU after a PEA. She was observed to have aspirated. She was bronchoscoped on 10/31/2016. See report. My impressions were 1. Acute cardiac arrest. 2. Heart disease 3. Congestive heart failure 4. Aspiration 5. Dementia 6. Renal failure 7. Anemia 8. Peripheral artery disease with lower extremity infections. 9. See past history 11/01/2016. Today's EKG shows sinus rhythm with inferior and lateral wall T- wave inversion. Chest x-ray shows partially resolved congestive heart failure. There is a fairly dense right lower lung infiltrate and early infiltrate in the left lower lung. ABGs on FiO2 of 60% and mechanical ventilation shows a pH of 7.44, PCO2 29.5, PO2 of 85.2 and a bicarb of 19.8. Sodium is 157 with a potassium of 3.4 and a chloride of 119. Creatinine is elevated 6.10 and BUN is 139. Natruretic peptide is dropped from [id number]. Proteins and albumin are low at 5.7 1.4 respectively. White blood cell count is 13,800 with 91 segs. H& H is 8.8/27.9. Platelets are 191,000. We will force 03/2017 I thought I ordered Doppler venograms of the lower extremities but these are not done so I reordered them today. I have also ordered an echocardiogram. This patient clearly had congestive heart failure before she had her cardiac arrest. Consider cardiology consultation. Urine cultures have grown providentuia. Right foot cultures have grown Providencia. Also the foot is growing methicillin-resistant staph aureus and Enterococcus faecalis. Physical exam. Vital signs. See below Chest. Marked congestion. Heart. Lateral PMI Abdomen. Nondistended. Only rare bowel sounds. Neck. Symmetrical. No meningismus Lymphatics. No submandibular cervical supraclavicular or epitrochlear adenopathy. Extremities. Chronic ulcerations. Mild chronic venous stasis. Plan. 1. Add Fortaz to cover [place]. 11/01/2016. Note there are no sensitivities for Enterococcus faecalis, methicillin-resistant staph aureus 2. Cleocin for aspiration 3. Fiberoptic bronchoscopy 4. Doppler venograms to lower extremities.. 11/01/2016. Reorder 5. BNP 6. Mechanical ventilation weaning protocol 7. Mechanical ventilation physical therapy protocol 8. Proton pump inhibitor protocol 9. Deep venous thrombophlebitis prevention protocol 10. See orders 11. 11/01/2016. Echocardiogram. Consider cardiology consultation. Exam (Progress Note) - Constitutional Vitals: Period Temp Pulse Resp BP Sys/Ballard Pulse Ox Last 24 Hr 96.9 F-98.0 F 69-90 20-20 121-181/53-87 95-100 Results - Labs CBC & BMP: 11/01/16 05:00 11/01/16 05:00
--- NOTE | 2016-11-01 10:52 | Nephrology Progress Note ---
Nephrology - PN: Subj Interval history: She suffered cardiac arrest on 10/30/2016. She was hypotensive for several hours. She is ventilator dependent. She is thought to have anoxic brain injury. Exam (PN)-Nephrology - Vital Signs Vital signs: Period Temp Pulse Resp BP Sys/Ballard Pulse Ox Last 24 Hr 96.9 F-98.0 F 69-90 20-20 121-181/53-87 95-100 Exam: Gen.: Not responsive. On ventilator ENT: Pupils equal round reactive to light. Neck: Supple. No JVD or bruit. Cardiovascular: Regular rate and rhythm. No murmur rub or gallop Lungs: Scattered rhonchi Abdomen: Soft. Nontender. Positive bowel sounds. No organomegaly Extremities: 1+ edema - Lab 11/01/16 05:00 11/01/16 05:00 Most recent lab results ABG pH 7.444 (7.35-7.45) 11/01/16 03:35 ABG pCO2 29.5 MM HG (35-48) L 11/01/16 03:35 ABG pO2 85.2 MM HG (80-95) 11/01/16 03:35 ABG HCO3 19.8 MMOL/L (20-26) L 11/01/16 03:35 ABG O2 Saturation 95.8 % (95-100) 11/01/16 03:35 Calcium 7.1 MG/DL (8.5-10.1) L 11/01/16 05:00 Phosphorus 7.6 MG/DL (2.5-4.9) H 11/01/16 05:00 Magnesium 2.8 MG/DL (1.8-2.4) H 11/01/16 05:00 Assessment and Plan (1) Chronic kidney disease, stage IV (severe) Status: Chronic Assessment and plan: 71-year-old woman admitted with: * CRF stage IV. Baseline creatinine 2.5 * Acute renal failure. This has worsened DT hypotension after cardiac arrest * Hypernatremia. Continue hypotonic fluid * Cardiac arrest * Anoxic brain injury * Hyperkalemia. Resolved * Peripheral vascular disease * Dementia * Cerebrovascular disease * Diabetes mellitus * Decubitus ulcer Current Visit: Yes (2) CVA, old, dysphagia Status: Acute Current Visit: Yes (3) Decubitus ulcer, hip, right, unstageable Status: Acute Current Visit: Yes (4) Dehydration Status: Acute Current Visit: Yes (5) Gangrene of foot Status: Acute Current Visit: Yes (6) Hyperkalemia Status: Acute Current Visit: Yes (7) Dementia Status: Chronic Current Visit: Yes (8) Diabetes mellitus Status: Chronic Current Visit: Yes (9) Hypernatremia Problem details: Calculated free water deficit 3.8L. Status: Acute Current Visit: No (10) UTI (urinary tract infection) Status: Acute Current Visit: No
--- NOTE | 2016-11-01 11:41 | Cardiology Consult Note ---
<Rere Ojeda - Last Filed: 11/01/16 13:59> Assessment and Plan - Time spent with patient Time spent with patient: Greater than 30 minutes (1) Congestive heart failure Status: Acute Assessment and plan: Echocardiogram June 2016 revealed normal left ventricular cavity size mild left ventricular hypertrophy with estimated left ventricular ejection fraction 50%. Patient also had echocardiogram in March 2016, this revealed grade 2 diastolic dysfunction with an ejection fraction of 60%. Repeat echocardiogram has been ordered today. These results are currently pending. This will be reviewed. BNP is elevated at 1665 and Troponin is mildly elevated 0.401. However, this is in the setting of an elevated creatinine of 6.1. Patient has a multiple cardiac risk factors and needs further workup to rule out ischemia. Patient will need cardiac catheterization once her comorbidities improve. I will discuss this with Dr. Sosa. Further plan and addendum to follow. Current Visit: Yes (2) Atrial fibrillation Status: Chronic Assessment and plan: Patient is currently normal sinus rhythm with PACs noted. This was first diagnosed March 2016. She is not been chronically anticoagulated due to high bleeding risk. H&H is 8.8 and 27.9 this admission. We will continue to hold off on anticoagulation at this time. Current Visit: Yes (3) Hypernatremia Status: Acute Assessment and plan: Free water has been increased per hospital medicine. Current Visit: Yes (4) Hypertension Status: Chronic Assessment and plan: This is clinically stable. Will continue current plan of care. Current Visit: Yes (5) Respiratory failure Status: Acute Assessment and plan: Management per pulmonary. Continue to wean from ventilator as patient tolerates. Current Visit: Yes (6) Anoxic encephalopathy Status: Acute Assessment and plan: Neurology is following. EEG results are pending. Current Visit: Yes (7) Bedridden Status: Chronic Current Visit: Yes (8) CVA, old, dysphagia Status: Chronic Current Visit: Yes (9) Cardiac arrest due to respiratory disorder Status: Acute Current Visit: Yes (10) Decubitus ulcer, hip, right, unstageable Status: Acute Assessment and plan: Management per Dr. Veloz. Current Visit: Yes (11) Sacral decubitus ulcer, stage III Status: Acute Assessment and plan: Management per Dr. Veloz. Current Visit: Yes (12) Diabetes mellitus Status: Chronic Assessment and plan: This is clinically stable. Defer further management to hospital medicine. Current Visit: Yes Qualifiers: Diabetes mellitus type: type 2 Chronic kidney disease stage: stage 4 ( severe) (13) Acute worsening of stage 4 chronic kidney disease Status: Acute Assessment and plan: Nephrology is following. Current Visit: No (14) Status post above knee amputation of left lower extremity Status: Chronic Current Visit: No History of Present Illness - Data of Consult Patient: new to practice Consult date: 11/01/16 Requesting Physician: Brian Henriquez - Consult Narrative Reason for consult: CHF History of present illness: Disclaimer: Patient is ventilated in the ICU. No family available. Unable to obtain HPI. Majority of information was obtained from past medical records and medical personnel. Information Developer: Patient has never seen a organizational development consultant in the [facility]. However , patient has been seen in consultation by Dr. Linda jacobs at [facility]. PCP: Dr. Walton in [place] Ms. Ramírez is a 71 year old female without a known history of coronary artery disease, not routinely followed by cardiology. She presented to [facility] 10/27/16 with altered mental status and gangrenous right foot. Patient has cardiac risk factors significant for hypertension, diabetes, peripheral vascular disease with gangrene of the right foot, advanced age, sedentary lifestyle and dyslipidemia. Patient is a non-smoker and has no significant family history of coronary artery disease. Patient has a past medical history of atrial fibrillation (diagnosed March 2016, due to high bleeding risk patient has not been chronically anticoagulated), dementia, left AKA, CVA and chronic kidney disease, stage IV (baseline creatinine 2.5). She also has a history of multiple decubiti with wounds to her sacrum and right lower extremity. Past surgical history of peg tube placement. It appears that patient has never underwent heart catheterization or cardiac stress testing. Echocardiogram June 2016 revealed normal left ventricular cavity size mild left ventricular hypertrophy with estimated left ventricular ejection fraction 50%. PAP of 53 mmHg noted. Mild to moderate tricuspid valve regurgitation. Patient was transferred from [facility] with gangrene of right foot. Dr. Veloz has been following patient at the long term and managing her right foot ulcer. Dr. Veloz felt the patient would best benefit from right AKA. However, patient's family refused this procedure. On 10/30/16 patient went into cardiopulmonary arrest times two, PEA. Thought be caused from aspiration. Patient responded well to epinephrine and CPR. She was intubated at that time and emergently transferred to the ICU. Patient has a known history of chronic kidney disease, stage IV with a baseline creatinine of 2.5. Creatinine is 6.1 with a BUN of 139 today. Nephrology is following. Post code her neurological status was compromised. Dr. Briceño is currently following and evaluating this. He plans for EEG today. Cardiology has been consulted for "CHF". Echo has been ordered by Dr. Henriquez. These results are pending. Ejection fraction was noted to be 50% June 2016. Patient was seen and examined in the ICU. She is unresponsive on the ventilator. Not receiving sedation. Dr. Briceño plans for EEG today. BNP 1665 with creatinine of 6.1. EKG reveals nonspecific T-wave abnormality. Troponin is mildly elevated at 0.401. However, patient is status post cardiopulmonary arrest requiring CPR and creatinine is elevated at 6. Echocardiogram has been ordered, these results are pending. Currently patient is normal sinus rhythm with heart rates in the 60s, PACs noted. Vital signs are stable. Patient has a multiple cardiac risk factors and needs further workup to rule out ischemia. Patient will need cardiac catheterization when her comorbidities improve. Labs: H&H 8.8 and 27.9. White blood cell count 13.8 with neutrophil count 12.7. Sodium 157. Chloride 119. Creatinine 6.1 with BUN of 139. Potassium 3.4 and magnesium of 2.8. BN P 1665. AST 133. ALT 142. Osmolality 353. I will discuss this patient with Dr. Sosa. Further plan an addendum to follow. CC: Lamont Veloz MD - Home Medications and Allergies Home Medications: Home Medications Medication Instructions Recorded Confirmed Type Acetaminophen Tab [Tylenol Tab] 650 mg PEG Q6H PRN 10/27/16 10/27/16 History Atorvastatin [Lipitor] 40 mg PEG BEDTIME 10/27/16 10/27/16 History Collagenase Oint [Santyl Oint] 1 applic TOP DAILY 10/27/16 10/27/16 History Donepezil [Aricept] 5 mg PEG BEDTIME 10/27/16 10/27/16 History Donepezil [Aricept] 10 mg PEG DAILY 10/27/16 10/27/16 History HYDROcodone/ACETAMIN 10-325 [Lamar 1 tablet PEG Q6H 10/27/16 10/27/16 History 10-325] Insulin Detemir [Levemir] 10 unit SUBCUT DAILY 10/27/16 10/27/16 History Insulin Detemir [Levemir] 20 unit SUBCUT BEDTIME 10/27/16 10/27/16 History Insulin Regular, Human [NovoLIN R] See Protocol SUBCUT AC 10/27/16 10/27/16 History Lactobacillus Acidophilus 1 each PEG DAILY 10/27/16 10/27/16 History [Acidophilus] Memantine [Namenda] 10 mg PEG BID 10/27/16 10/27/16 History Metoprolol Tartrate 25 mg PEG BID 10/27/16 10/27/16 History Omeprazole 40 mg PEG DAILY 10/27/16 10/27/16 History Pentoxifylline 400 mg PEG AC 10/27/16 10/27/16 History Sodium Chl/Potassium Chl Tab 1 tablet PEG DAILY 10/27/16 10/27/16 History [Thermotabs] Sodium Hypochlorite 0.25% Irr 1 applic TOP DAILY 10/27/16 10/27/16 History [Dakins 1/2 Strength 0.25% Soln] cloNIDine HCl [Clonidine HCl] 0.1 mg PEG BID 10/27/16 10/27/16 History dilTIAZem HCl [Cardizem LA] 180 mg PEG DAILY 10/27/16 10/27/16 History Allergies/Adverse Reactions: Allergies Allergy/AdvReac Type Severity Reaction Status Date / Time No Known Allergies Allergy Unverified 10/27/16 20:32 ROS unobtainable: due to endotracheal tube Medical,Surgical,& Family Hx - Medical History Cardio: History of: Cardiac Dysrhythmia, Hypertension, Cardiovascular Problems ( PVD) Neurology: History of: Dementia No history of: Seizures HEENT: History of: Eye Problem (Glasses), Dental Problems (Full dentures) Endocrine: History of: Diabetes Mellitus (NIDDM) Renal: History of: Renal Problems (Chronic Kidney disease) Gastrointestinal: History of: GERD, GI Problems (DYSPEPSIA, CONSTIPATION) Musculoskeletal: History of: Musculoskeletal Problems (OA left hip) Hematology: History of: Bleeding Problems (DVT RLE) Other: History of: Skin Problems (STAGE 4 SACRAL ULCER) - Surgical History HEENT Surgeries: Surgical HX of: Eye Surgery (Bilateral cataracts sx) Abdominal Surgeries: Patient denies: Abdominal Surgery (PEG TUBE) - Family History Family History: Reports;: Family Cancer, Family Diabetes, Family Hypertension - Social History Smoking Status: Never smoker Frequency of Alcohol Use: None Type of Drug Use: None Physical Examination Vital Signs Temp Pulse Resp BP Pulse Ox 98.1 F 56 L 22 155/62 92 L 10/27/16 20:33 10/27/16 20:33 10/27/16 20:33 10/27/16 20:33 10/27/16 20:33 General: Present: Other (She is unresponsive on the ventilator in the ICU.) HEENT: Present: Normocephaly Neck: Present: Supple Neck, Midline Trachea Cardiac: Present: Reg Rate and Rhythm, Other (Sinus rhythm with frequent PACs.) . Absent: Gallop, Tachycardia, Bradycardia Lungs: Present: Decreased Breath Sounds, Bibasilar Rales, Ventilated Respirations Abdomen: Present: Decreased Bowel Sounds, Other (PEG tube.). Absent: Firm, Distended Extremities: Present: +1 Edema (Generalized), Other (Right lower extremity dressing intact. Left AKA.) Result/EKG - Labs CBC & BMP: 11/01/16 05:00 11/01/16 05:00 Lab Results: I have reviewed the past 24 hour labs Labs: Laboratory Results - last 24 hr 10/31/16 10/31/16 11/01/16 08:44 17:50 00:11 WBC RBC Hgb Hct MCV MCH MCHC RDW Plt Count MPV Neut % (Auto) Lymph % (Auto) [place] % (Auto) Eos % (Auto) Baso % (Auto) Neut # (Auto) Lymph # (Auto) [place] # (Auto) Eos # (Auto) Baso # (Auto) Total Counted Immature Gran % Nucleated RBC % Immature Gran # Segmented Neutrophils Band Neutrophils Lymphocytes Monocytes Nucleated RBCs # Platelet Estimate Hypochromasia Microcytosis Ovalocytes [place] Cells Morphology Comment ABG pH ABG pCO2 ABG pO2 ABG HCO3 ABG Total CO2 ABG O2 Saturation ABG Base Excess FiO2 Sodium Potassium Chloride Carbon Dioxide Anion Gap BUN Creatinine GFR Calculation BUN/Creatinine Ratio Glucose POC Glucose 160 H 64 L Calculated Osmolality Calcium Phosphorus Magnesium Total Bilirubin AST ALT Alkaline Phosphatase B-Natriuretic Peptide Total Protein Albumin Globulin Albumin/Globulin Ratio Prealbumin Blood Type B POSITIVE Antibody Screen Positive Antibody Identification Anti-E Crossmatch See Detail 11/01/16 11/01/16 11/01/16 01:11 03:01 03:35 WBC RBC Hgb Hct MCV MCH MCHC RDW Plt Count MPV Neut % (Auto) Lymph % (Auto) [place] % (Auto) Eos % (Auto) Baso % (Auto) Neut # (Auto) Lymph # (Auto) [place] # (Auto) Eos # (Auto) Baso # (Auto) Total Counted Immature Gran % Nucleated RBC % Immature Gran # Segmented Neutrophils Band Neutrophils Lymphocytes Monocytes Nucleated RBCs # Platelet Estimate Hypochromasia Microcytosis Ovalocytes [place] Cells Morphology Comment ABG pH 7.444 ABG pCO2 29.5 L ABG pO2 85.2 ABG HCO3 19.8 L ABG Total CO2 20.7 L ABG O2 Saturation 95.8 ABG Base Excess -3.5 L FiO2 60.00 Sodium Potassium Chloride Carbon Dioxide Anion Gap BUN Creatinine GFR Calculation BUN/Creatinine Ratio Glucose POC Glucose 109 H 95 Calculated Osmolality Calcium Phosphorus Magnesium Total Bilirubin AST ALT Alkaline Phosphatase B-Natriuretic Peptide Total Protein Albumin Globulin Albumin/Globulin Ratio Prealbumin Blood Type Antibody Screen Antibody Identification Crossmatch 11/01/16 11/01/16 11/01/16 05:00 05:00 05:00 WBC 13.8 H D RBC 3.07 L D Hgb 8.8 L D Hct 27.9 L MCV 90.9 MCH 29 MCHC 31.5 L RDW 15.8 Plt Count 191 MPV 12.5 H Neut % (Auto) 91.4 H Lymph % (Auto) 4.0 L [place] % (Auto) 3.6 Eos % (Auto) 0.0 Baso % (Auto) 0.1 Neut # (Auto) 12.7 H Lymph # (Auto) 0.6 L [place] # (Auto) 0.5 Eos # (Auto) 0.0 Baso # (Auto) 0.0 Total Counted 100 Immature Gran % 0.9 Nucleated RBC % 0.5 Immature Gran # 0.12 Segmented Neutrophils 83 Band Neutrophils 10 Lymphocytes 4 L Monocytes 3 Nucleated RBCs # 0.07 Platelet Estimate Adequate Hypochromasia 1+ Microcytosis 1+ Ovalocytes Slight [place] Cells Slight Morphology Comment ABG pH ABG pCO2 ABG pO2 ABG HCO3 ABG Total CO2 ABG O2 Saturation ABG Base Excess FiO2 Sodium 157 H Potassium 3.4 L Chloride 119 H Carbon Dioxide 22 Anion Gap 19.4 H BUN 139 H Creatinine 6.10 H GFR Calculation 7 BUN/Creatinine Ratio 22.00 H Glucose 71 L POC Glucose Calculated Osmolality 353.0 H Calcium 7.1 L Phosphorus 7.6 H Magnesium 2.8 H Total Bilirubin 0.70 AST 133 H ALT 142 H Alkaline Phosphatase 319 H B-Natriuretic Peptide 1665 H Total Protein 5.7 L Albumin 1.4 L Globulin 4.3 H Albumin/Globulin Ratio 0.3 L Prealbumin 10.9 L Blood Type Antibody Screen Antibody Identification Crossmatch 11/01/16 11/01/16 11/01/16 06:11 06:50 08:17 WBC RBC Hgb Hct MCV MCH MCHC RDW Plt Count MPV Neut % (Auto) Lymph % (Auto) [place] % (Auto) Eos % (Auto) Baso % (Auto) Neut # (Auto) Lymph # (Auto) [place] # (Auto) Eos # (Auto) Baso # (Auto) Total Counted Immature Gran % Nucleated RBC % Immature Gran # Segmented Neutrophils Band Neutrophils Lymphocytes Monocytes Nucleated RBCs # Platelet Estimate Hypochromasia Microcytosis Ovalocytes [place] Cells Morphology Comment ABG pH ABG pCO2 ABG pO2 ABG HCO3 ABG Total CO2 ABG O2 Saturation ABG Base Excess FiO2 Sodium Potassium Chloride Carbon Dioxide Anion Gap BUN Creatinine GFR Calculation BUN/Creatinine Ratio Glucose POC Glucose 63 L 119 H 88 Calculated Osmolality Calcium Phosphorus Magnesium Total Bilirubin AST ALT Alkaline Phosphatase B-Natriuretic Peptide Total Protein Albumin Globulin Albumin/Globulin Ratio Prealbumin Blood Type Antibody Screen Antibody Identification Crossmatch <[email or web address] - Last Filed: 11/01/16 14:35> History of Present Illness - Consult Narrative History of present illness: Cardiology addendum Patient examined and chart reviewed. Status post cardiac arrest this weekend with anoxic encephalopathy. She has gangrene of right lower extremity needs amputation however family not ready to make this decision Almost certainly has significant CAD Longtime diabetic PVD Hypertension Status post left leg AKA Sacral decubitus ulcer Chronic renal failure BUN 139 creatinine 6.10 Chronic anemia H&H 8.8 and 27.9 respectively today Prior echo showed good LV function Plan Monitor Echo Doppler Neurochecks Recheck BMP and CBC in a.m. CC: Lamont Veloz MD Physical Examination Vital Signs Temp Pulse Resp BP Pulse Ox 98.1 F 56 L 22 155/62 92 L 10/27/16 20:33 10/27/16 20:33 10/27/16 20:33 10/27/16 20:33 10/27/16 20:33 Result/EKG - Labs CBC & BMP: 11/01/16 05:00 11/01/16 05:00 Labs: Laboratory Results - last 24 hr 10/31/16 10/31/16 11/01/16 08:44 17:50 00:11 WBC RBC Hgb Hct MCV MCH MCHC RDW Plt Count MPV Neut % (Auto) Lymph % (Auto) [place] % (Auto) Eos % (Auto) Baso % (Auto) Neut # (Auto) Lymph # (Auto) [place] # (Auto) Eos # (Auto) Baso # (Auto) Total Counted Immature Gran % Nucleated RBC % Immature Gran # Segmented Neutrophils Band Neutrophils Lymphocytes Monocytes Nucleated RBCs # Platelet Estimate Hypochromasia Microcytosis Ovalocytes [place] Cells Morphology Comment ABG pH ABG pCO2 ABG pO2 ABG HCO3 ABG Total CO2 ABG O2 Saturation ABG Base Excess FiO2 Sodium Potassium Chloride Carbon Dioxide Anion Gap BUN Creatinine GFR Calculation BUN/Creatinine Ratio Glucose POC Glucose 160 H 64 L Calculated Osmolality Calcium Phosphorus Magnesium Total Bilirubin AST ALT Alkaline Phosphatase B-Natriuretic Peptide Total Protein Albumin Globulin Albumin/Globulin Ratio Prealbumin Blood Type B POSITIVE Antibody Screen Positive Antibody Identification Anti-E Crossmatch See Detail 11/01/16 11/01/16 11/01/16 01:11 03:01 03:35 WBC RBC Hgb Hct MCV MCH MCHC RDW Plt Count MPV Neut % (Auto) Lymph % (Auto) [place] % (Auto) Eos % (Auto) Baso % (Auto) Neut # (Auto) Lymph # (Auto) [place] # (Auto) Eos # (Auto) Baso # (Auto) Total Counted Immature Gran % Nucleated RBC % Immature Gran # Segmented Neutrophils Band Neutrophils Lymphocytes Monocytes Nucleated RBCs # Platelet Estimate Hypochromasia Microcytosis Ovalocytes [place] Cells Morphology Comment ABG pH 7.444 ABG pCO2 29.5 L ABG pO2 85.2 ABG HCO3 19.8 L ABG Total CO2 20.7 L ABG O2 Saturation 95.8 ABG Base Excess -3.5 L FiO2 60.00 Sodium Potassium Chloride Carbon Dioxide Anion Gap BUN Creatinine GFR Calculation BUN/Creatinine Ratio Glucose POC Glucose 109 H 95 Calculated Osmolality Calcium Phosphorus Magnesium Total Bilirubin AST ALT Alkaline Phosphatase B-Natriuretic Peptide Total Protein Albumin Globulin Albumin/Globulin Ratio Prealbumin Blood Type Antibody Screen Antibody Identification Crossmatch 11/01/16 11/01/16 11/01/16 05:00 05:00 05:00 WBC 13.8 H D RBC 3.07 L D Hgb 8.8 L D Hct 27.9 L MCV 90.9 MCH 29 MCHC 31.5 L RDW 15.8 Plt Count 191 MPV 12.5 H Neut % (Auto) 91.4 H Lymph % (Auto) 4.0 L [place] % (Auto) 3.6 Eos % (Auto) 0.0 Baso % (Auto) 0.1 Neut # (Auto) 12.7 H Lymph # (Auto) 0.6 L [place] # (Auto) 0.5 Eos # (Auto) 0.0 Baso # (Auto) 0.0 Total Counted 100 Immature Gran % 0.9 Nucleated RBC % 0.5 Immature Gran # 0.12 Segmented Neutrophils 83 Band Neutrophils 10 Lymphocytes 4 L Monocytes 3 Nucleated RBCs # 0.07 Platelet Estimate Adequate Hypochromasia 1+ Microcytosis 1+ Ovalocytes Slight [place] Cells Slight Morphology Comment ABG pH ABG pCO2 ABG pO2 ABG HCO3 ABG Total CO2 ABG O2 Saturation ABG Base Excess FiO2 Sodium 157 H Potassium 3.4 L Chloride 119 H Carbon Dioxide 22 Anion Gap 19.4 H BUN 139 H Creatinine 6.10 H GFR Calculation 7 BUN/Creatinine Ratio 22.00 H Glucose 71 L POC Glucose Calculated Osmolality 353.0 H Calcium 7.1 L Phosphorus 7.6 H Magnesium 2.8 H Total Bilirubin 0.70 AST 133 H ALT 142 H Alkaline Phosphatase 319 H B-Natriuretic Peptide 1665 H Total Protein 5.7 L Albumin 1.4 L Globulin 4.3 H Albumin/Globulin Ratio 0.3 L Prealbumin 10.9 L Blood Type Antibody Screen Antibody Identification Crossmatch 11/01/16 11/01/16 11/01/16 06:11 06:50 08:17 WBC RBC Hgb Hct MCV MCH MCHC RDW Plt Count MPV Neut % (Auto) Lymph % (Auto) [place] % (Auto) Eos % (Auto) Baso % (Auto) Neut # (Auto) Lymph # (Auto) [place] # (Auto) Eos # (Auto) Baso # (Auto) Total Counted Immature Gran % Nucleated RBC % Immature Gran # Segmented Neutrophils Band Neutrophils Lymphocytes Monocytes Nucleated RBCs # Platelet Estimate Hypochromasia Microcytosis Ovalocytes [place] Cells Morphology Comment ABG pH ABG pCO2 ABG pO2 ABG HCO3 ABG Total CO2 ABG O2 Saturation ABG Base Excess FiO2 Sodium Potassium Chloride Carbon Dioxide Anion Gap BUN Creatinine GFR Calculation BUN/Creatinine Ratio Glucose POC Glucose 63 L 119 H 88 Calculated Osmolality Calcium Phosphorus Magnesium Total Bilirubin AST ALT Alkaline Phosphatase B-Natriuretic Peptide Total Protein Albumin Globulin Albumin/Globulin Ratio Prealbumin Blood Type Antibody Screen Antibody Identification Crossmatch 11/01/16 12:03 WBC RBC Hgb Hct MCV MCH MCHC RDW Plt Count MPV Neut % (Auto) Lymph % (Auto) [place] % (Auto) Eos % (Auto) Baso % (Auto) Neut # (Auto) Lymph # (Auto) [place] # (Auto) Eos # (Auto) Baso # (Auto) Total Counted Immature Gran % Nucleated RBC % Immature Gran # Segmented Neutrophils Band Neutrophils Lymphocytes Monocytes Nucleated RBCs # Platelet Estimate Hypochromasia Microcytosis Ovalocytes [place] Cells Morphology Comment ABG pH ABG pCO2 ABG pO2 ABG HCO3 ABG Total CO2 ABG O2 Saturation ABG Base Excess FiO2 Sodium Potassium Chloride Carbon Dioxide Anion Gap BUN Creatinine GFR Calculation BUN/Creatinine Ratio Glucose POC Glucose 72 L Calculated Osmolality Calcium Phosphorus Magnesium Total Bilirubin AST ALT Alkaline Phosphatase B-Natriuretic Peptide Total Protein Albumin Globulin Albumin/Globulin Ratio Prealbumin Blood Type Antibody Screen Antibody Identification Crossmatch
--- NOTE | 2016-11-01 12:57 | Hospitalist Progress Note ---
Assessment and Plan (1) Gas gangrene Status: Acute Assessment and plan: right leg gangrene, needs amputation but family does not want, already has amputation on left. Clindamycin and ceftazidime Current Visit: No (2) Respiratory failure Status: Acute Assessment and plan: secondary to aspiration and and does have a component of heart failure as her BNP is over 1600. Will continue antibiotics ceftazidime and clindamycin, they have been been avoiding diuresis due to elevated sodium. I believe her elevated sodiums are not accurate at this institution. Current Visit: Yes (3) Uncontrolled hypertension Status: Acute Assessment and plan: pressors off, blood pressure in 140s Current Visit: No (4) CHF (congestive heart failure) Status: Acute Assessment and plan: Patient needs gentle diuresis but unable to do due to elevated sodiums which I believe are inaccurate Current Visit: No (5) Decubitus ulcer of sacral region, unstageable Status: Chronic Assessment and plan: Dr. Veloz is managing Current Visit: No (6) Diabetes mellitus Status: Chronic Assessment and plan: Continue insulin sliding scale, continue Lantus Current Visit: Yes Qualifiers: Diabetes mellitus type: type 2 Chronic kidney disease stage: stage 4 ( severe) (7) Acute worsening of stage 4 chronic kidney disease Status: Acute Assessment and plan: End-stage renal failure poor prognosis, Dr. Kitchen managing, did replace potassium Current Visit: No (8) Hypernatremia Status: Acute Assessment and plan: Increase free water through PEG tube but I believe are sodiums at this institution are unreliable Current Visit: No (9) Atrial fibrillation Status: Chronic Assessment and plan: Currently still in atrial fib rate controlled with metoprolol and diltiazem Current Visit: No (10) Sacral decubitus ulcer, stage III Status: Acute Assessment and plan: Dr. Veloz is managing Current Visit: Yes (11) Decubitus ulcer, hip, right, unstageable Status: Acute Assessment and plan: Dr. Veloz is managing Current Visit: Yes (12) CVA, old, dysphagia Status: Acute Current Visit: Yes (13) Cardiac arrest due to respiratory disorder Status: Acute Current Visit: Yes (14) Anoxic encephalopathy Status: Acute Assessment and plan: As a result of cardiac arrest, EEG pending Current Visit: Yes Hospitalist: Subjective Interval history: Patient does not respond to pain. She does not respond to commands. Her pupils are sluggish but reactive. Dr. Briceño and I have discussed her case and she is severely brain damaged. Patient has a necrotic right lower extremity and family did not want it amputated. Patient is extremely sick and had aspiration pneumonia but she sounds pretty good today. Dr. Henriquez has already bronched her. Exam - Constitutional Vitals: Period Temp Pulse Resp BP Sys/[place] Pulse Ox Last 24 Hr 97 F-98.0 F 66-85 20-20 122-181/58-87 95-100 Exam: Heart Rate-[RRR] Lungs-[CTAB] GI-[+bs soft, NT] Ext-[no edema] Neuro [see hpi, no response to pain or command, no breathing over the vent, pupils sluggish psych [unable to assess ] General [no acute distress] Results - Labs CBC & BMP: 11/01/16 05:00 11/01/16 05:00 Lab Results: I have reviewed the past 24 hour labs - Diagnostic Findings Procedure: Chest x-ray: report reviewed by me (Aspiration/pulmonary edema)
[2016-11-01] MEDS ORDERED: POTASSIUM CHLORIDE 20 MEQ/15 ML UDCUP PER TUBE PRN (13:01)
[2016-11-01] MEDS: cefTAZidime 500 MG in SODIUM CHLORIDE 0.9% 100 ML IV SCH (13:50)
--- NOTE | 2016-11-01 15:32 | ECHO Report ---
Ирина Ramírez Exam Date: 11/01/2016 10:36 Referring Physician: Technologist: Dee Gomez RDCS Age: 71 Ht (in): 67 Wt (lb): 151 Gender: F Exam Location: [facility] Echo Indications: Cardiac arrest, cause unspecified, Heart failure, unspecified, Chronic kidney disease, stage 4 (severe), Aspiration, Anemia, old CVA, PAD, Hyperkalemia, Gangrene right foot BP: 138 / 61 HR: 66 Rhythm: Sinus Technical Quality: Fair IMPRESSIONS Left ventricular ejection fraction is estimated at 45 %. The right ventricle is normal in size and function. The right atrium is mildly enlarged. Moderately increased left atrial size. Morphologically normal mitral valve. Trace mitral valve regurgitation. Aortic valve sclerosis. Trace aortic valve regurgitation. Severe tricuspid valve regurgitation. [id number]. No pulmonary valve regurgitation. Normal pericardium without effusion. Normal ascending aorta dimension. MEASUREMENTS (Male / Female) Normal Values 2D ECHO LV Diastolic Diameter PLAX 4.7 cm 4.2 - 5.9 / 3.9 - 5.3 cm LV Systolic Diameter PLAX 3.5 cm LV Fractional Shortening PLAX 24.8 % IVS Diastolic Thickness 1.1 cm 0.6 - 1.0 / 0.6 - 0.9 cm LVPW Diastolic Thickness 1.1 cm 0.6 - 1.0 / 0.6 - 0.9 cm RV Internal Dim ED PLAX 3.6 cm Aortic Root Diameter 3.1 cm LA Systolic Diameter LX 4.3 cm 3.0 - 4.0 / 2.7 - 3.8 cm DOPPLER TR Peak Velocity 383.0 cm/s TR Peak Gradient 58.7 mmHg FINDINGS Left Ventricle Normal left ventricular cavity size. Mild left ventricular hypertrophy. Left ventricular ejection fraction is estimated at 45 %. Grade I/IV diastolic dysfunction (abnormal relaxation filling pattern), normal to mildly elevated filling pressures. Right Ventricle The right ventricle is normal in size and function. Right Atrium The right atrium is mildly enlarged. Left Atrium Moderately increased left atrial size. Mitral Valve Morphologically normal mitral valve. Trace mitral valve regurgitation. Aortic Valve Aortic valve sclerosis. Trace aortic valve regurgitation. Tricuspid Valve Morphologically normal tricuspid valve. Severe tricuspid valve regurgitation. [id number]. Pulmonic Valve Pulmonic valve not well visualized. No pulmonary valve regurgitation. Pericardium Normal pericardium without effusion. Aorta Normal ascending aorta dimension. Evan Plavac (Electronically Signed) Final Date: 01 November 2016 15:30
[2016-11-01] MEDS: CEFEPIME 500 MG in SODIUM CHLORIDE 0.9% 100 ML IV SCH (15:53)
[2016-11-01] MEDS: POTASSIUM CHLORIDE 20 MEQ/15 ML UDCUP PER TUBE PRN ×2 (16:36→18:26)
[2016-11-01] MEDS: ATORVASTATIN 40 MG TABLET PEG SCH (21:12)
[2016-11-01] MEDS: DONEPEZIL 5 MG TABLET PEG SCH (21:12)
--- NOTE | 2016-11-01 21:31 | Ultrasound Report ---
US venous doppler LE BI Indication: PID. Right foot infection. Shortness of breath. BILATERAL LOWER EXTREMITY VENOUS ULTRASOUND Comparison: 06/29/2016 Findings: Graded grayscale compression, color Doppler and pulsed Doppler ultrasound evaluation of the venous structures performed. Normal compressibility, augmentation and color saturation is present within bilateral common femoral, superficial femoral, right popliteal and proximal greater saphenous veins. Left AKA has been performed. Impression: No evidence of DVT either lower extremity. PROCEDURE INTERPRETED AT [facility] DEPARTMENT OF RADIOLOGY Final Report Signed by: Kevin Metcalf M.D.
[2016-11-02] MEDS: INSULIN REGULAR 100 UNIT/ML SUBCUT SCH ×4 (00:19→18:11)
[2016-11-02] MEDS: CLINDAMYCIN INJ 300 MG in PREMIX 1 EACH IV SCH ×2 (03:15→07:48)
[2016-11-02] MEDS: methylPREDNISolone SOD SUC 40 MG/1 ML VIAL IV SCH ×3 (03:46→21:01)
[2016-11-02 04:16] LABS: ABG Base Excess -4.8 MMOL/L (-2.5-2.5); ABG HCO3 19.3 MMOL/L (20-26); ABG Oxygen Saturation 97.8 % (95-100); ABG PCO2 31.8 MM HG (35-48); ABG PO2 123.6 MM HG (80-95); ABG TCO2 20.2 MMOL/L (23-27); Allen Test Positive; Pt O2 Delivery Device Ventilator
[2016-11-02 05:07] LABS: Basophils % 0.1 % (0.0-0.8); Hematocrit 29.5 VOL% (35.7-47.0); Hemoglobin 9.1 GM/DL (12.0-16.0); Immature Granulocytes % 1.7 %; Immature Granulocytes Absolute 0.33 #; Lymphocytes # 0.3 10*3/uL (1.4-4.0); Lymphocytes % 1.6 % (21.3-54.2); Mean Corpuscular HGB Conc 30.8 GM/DL (32-36); Mean Corpuscular Hemoglobin 28 PG (27-34); Mean Corpuscular Volume 90.8 FL (87-102); Mean Platelet Volume 12.6 FL (9.6-12.0); Monocytes # 0.6 10*3/uL (0.11-0.8); Monocytes % 3.2 % (1.7-12.7); NRBC # 0.05 10*3/uL; Neutrophils # 18.2 10*3/uL (1.4-7.4); Neutrophils % 93.4 % (38.7-73.9); Platelet Count 190 T/CUMM (130-400); Red Blood Count 3.25 MC/CUMM (3.8-5.5); Red Cell Distribution Width 16.2 % (9.3-17.3); White Blood Count 19.5 T/CUMM (4-12)
[2016-11-02 05:23] LABS: Albumin 1.5 G/DL (3.4-5.0); Bilirubin,Total 1.6 MG/DL (0.2-1.0); Calcium 7.1 MG/DL (8.5-10.1); Osmolality,Calculated 356.3 MOS/KG (273-304); Potassium 3.9 MMOL/L (3.5-5.1); Total Protein 5.9 G/DL (6.4-8.3)
[2016-11-02 05:36] LABS: Band Neutrophils 4 % (0-10); Lymphocytes 3 % (20-55); Platelet Estimate Normal; Segmented Neutrophils 91 % (50-85); Total Cells Counted 100
[2016-11-02 05:37] LABS: Hypochromasia 1+; Microcytosis 1+; Ovalocytes Slight; Risk Ratio 2.12; VLDL CHOLESTEROL 18.6 MG/DL
[2016-11-02] MEDS: VALPROIC ACID INJ 500 MG in SODIUM CHLORIDE 0.9% 100 ML IV SCH ×3 (06:23→22:43)
--- NOTE | 2016-11-02 07:02 | XRay Report ---
Referring Physician: Lamont Veloz Exam: XR chest 1V portable Date: November 02, 2016 at 3:23 AM Reason: Aspiration Comparison: Chest one view portable November 01, 2016 Findings: An endotracheal tube and right IJ catheter again in place. The previously seen feeding tube is not identified. The cardiac silhouette is again mildly enlarged. There are opacities throughout both lungs, most prominent within the right mid and lower lung zones and within the left lower lung zone. This is concerning for pulmonary edema and atelectasis, but there could also be pneumonia or aspiration. No pneumothorax is identified, but there is mild bilateral pleural fluid. The osseous structures appear stable. Impression: There has been no significant change. PROCEDURE INTERPRETED AT [facility] DEPARTMENT OF RADIOLOGY Final Report Signed by: Dr. Hugh Melendez
--- NOTE | 2016-11-02 07:29 | Cardiology Progress Note ---
Cardiology - PN: Subj Interval history: Cardiology note 70-year-old woman status post cardiac arrest Remains unresponsive Telemetry shows sinus rhythm in the 60s O2 sat 100 on 60% FiO2 Blood pressure 166/70 Decreased breath sounds few crackles on the right base Regular rhythm no murmur Abdomen soft Trace leg edema Lab data today White count 19.5 hemoglobin 9.1 hematocrit 29.5 Sodium 155 potassium 3.9 chloride 116 CO2 22 BUN 137 creatinine 6.10 Glucose 211 Echo Doppler shows ejection fraction of 45% with moderate dilated left atrium, aortic sclerosis, normal RV function, severe TR, PA pressure 65 with no effusion and grade 1 diastolic dysfunction Impression Status post cardiac arrest Anoxic encephalopathy Gangrene right lower extremity Longtime diabetic Chronic hypertension Status post left leg AKA Chronic renal failure Chronic anemia EF 45% with severe TR PA pressure 65 by recent echo Almost certainly has CAD Plan IV antibiotics Ventilator support Tube feedings Prognosis very poor Exam (Progress Note) - Constitutional Vitals: Period Temp Pulse Resp BP Sys/Ballard Pulse Ox Last 24 Hr 97 F-98.4 F 64-74 18-23 126-191/52-86 95-100 Result/EKG - Labs CBC & BMP: 11/02/16 04:40 11/02/16 04:40 Labs: Laboratory Results - last 24 hr 11/01/16 11/01/16 11/01/16 08:17 12:03 18:07 WBC RBC Hgb Hct MCV MCH MCHC RDW Plt Count MPV Neut % (Auto) Lymph % (Auto) [place] % (Auto) Eos % (Auto) Baso % (Auto) Neut # (Auto) Lymph # (Auto) [place] # (Auto) Eos # (Auto) Baso # (Auto) Total Counted Immature Gran % Nucleated RBC % Immature Gran # Segmented Neutrophils Band Neutrophils Lymphocytes Monocytes Nucleated RBCs # Platelet Estimate Hypochromasia Microcytosis Ovalocytes Morphology Comment ABG pH ABG pCO2 ABG pO2 ABG HCO3 ABG Total CO2 ABG O2 Saturation ABG Base Excess FiO2 Sodium Potassium Chloride Carbon Dioxide Anion Gap BUN Creatinine GFR Calculation BUN/Creatinine Ratio Glucose POC Glucose 88 72 L 165 H Calculated Osmolality Calcium Magnesium Total Bilirubin AST ALT Alkaline Phosphatase Total Protein Albumin Globulin Albumin/Globulin Ratio Triglycerides Cholesterol LDL Cholesterol VLDL Cholesterol HDL Cholesterol Heart Disease Risk Ratio 11/01/16 11/02/16 11/02/16 23:52 03:35 04:40 WBC RBC Hgb Hct MCV MCH MCHC RDW Plt Count MPV Neut % (Auto) Lymph % (Auto) [place] % (Auto) Eos % (Auto) Baso % (Auto) Neut # (Auto) Lymph # (Auto) [place] # (Auto) Eos # (Auto) Baso # (Auto) Total Counted Immature Gran % Nucleated RBC % Immature Gran # Segmented Neutrophils Band Neutrophils Lymphocytes Monocytes Nucleated RBCs # Platelet Estimate Hypochromasia Microcytosis Ovalocytes Morphology Comment ABG pH 7.400 ABG pCO2 31.8 L ABG pO2 123.6 H ABG HCO3 19.3 L ABG Total CO2 20.2 L ABG O2 Saturation 97.8 ABG Base Excess -4.8 L FiO2 60.00 Sodium Potassium Chloride Carbon Dioxide Anion Gap BUN Creatinine GFR Calculation BUN/Creatinine Ratio Glucose POC Glucose 182 H Calculated Osmolality Calcium Magnesium Total Bilirubin AST ALT Alkaline Phosphatase Total Protein Albumin Globulin Albumin/Globulin Ratio Triglycerides 93 Cholesterol 87 LDL Cholesterol 38.0 VLDL Cholesterol 18.6 HDL Cholesterol 41 Heart Disease Risk Ratio 2.12 11/02/16 11/02/16 11/02/16 04:40 04:40 04:40 WBC 19.5 H D RBC 3.25 L Hgb 9.1 L Hct 29.5 L MCV 90.8 MCH 28 MCHC 30.8 L RDW 16.2 Plt Count 190 MPV 12.6 H Neut % (Auto) 93.4 H Lymph % (Auto) 1.6 L [place] % (Auto) 3.2 Eos % (Auto) 0.0 Baso % (Auto) 0.1 Neut # (Auto) 18.2 H Lymph # (Auto) 0.3 L [place] # (Auto) 0.6 Eos # (Auto) 0.0 Baso # (Auto) 0.0 Total Counted 100 Immature Gran % 1.7 Nucleated RBC % 0.3 Immature Gran # 0.33 Segmented Neutrophils 91 H Band Neutrophils 4 Lymphocytes 3 L Monocytes 2 Nucleated RBCs # 0.05 Platelet Estimate Normal Hypochromasia 1+ Microcytosis 1+ Ovalocytes Slight Morphology Comment ABG pH ABG pCO2 ABG pO2 ABG HCO3 ABG Total CO2 ABG O2 Saturation ABG Base Excess FiO2 Sodium 155 H Potassium 3.9 Chloride 116 H Carbon Dioxide 20 L Anion Gap 22.9 H BUN 137 H Creatinine 6.10 H GFR Calculation 8 BUN/Creatinine Ratio 22.00 H Glucose 208 H POC Glucose Calculated Osmolality 356.3 H Calcium 7.1 L Magnesium 2.9 H Total Bilirubin 1.60 H AST 94 H ALT 122 H Alkaline Phosphatase 341 H Total Protein 5.9 L Albumin 1.5 L Globulin 4.4 H Albumin/Globulin Ratio 0.3 L Triglycerides Cholesterol LDL Cholesterol VLDL Cholesterol HDL Cholesterol Heart Disease Risk Ratio 11/02/16 05:52 WBC RBC Hgb Hct MCV MCH MCHC RDW Plt Count MPV Neut % (Auto) Lymph % (Auto) [place] % (Auto) Eos % (Auto) Baso % (Auto) Neut # (Auto) Lymph # (Auto) [place] # (Auto) Eos # (Auto) Baso # (Auto) Total Counted Immature Gran % Nucleated RBC % Immature Gran # Segmented Neutrophils Band Neutrophils Lymphocytes Monocytes Nucleated RBCs # Platelet Estimate Hypochromasia Microcytosis Ovalocytes Morphology Comment ABG pH ABG pCO2 ABG pO2 ABG HCO3 ABG Total CO2 ABG O2 Saturation ABG Base Excess FiO2 Sodium Potassium Chloride Carbon Dioxide Anion Gap BUN Creatinine GFR Calculation BUN/Creatinine Ratio Glucose POC Glucose 211 H Calculated Osmolality Calcium Magnesium Total Bilirubin AST ALT Alkaline Phosphatase Total Protein Albumin Globulin Albumin/Globulin Ratio Triglycerides Cholesterol LDL Cholesterol VLDL Cholesterol HDL Cholesterol Heart Disease Risk Ratio
[2016-11-02] MEDS: DILTIAZEM 60 MG TABLET PO SCH ×3 (08:29→21:07)
[2016-11-02] MEDS: LACTOBACILLUS RHAMNOSUS GG CAPSULE PEG SCH (08:29)
[2016-11-02] MEDS: MEMANTINE 10 MG TABLET PER TUBE SCH ×2 (08:29→21:08)
[2016-11-02] MEDS: BACITRACIN OINT 0.9 GM PACK TOP SCH (08:29)
[2016-11-02] MEDS: PANTOPRAZOLE 40 MG VIAL IV SCH (08:30)
[2016-11-02] MEDS: DONEPEZIL 10 MG TABLET PEG SCH (08:30)
[2016-11-02] MEDS: DESITIN 4OZ/NYSTATIN 15 GRAM MIXTURE PASTE TOP SCH ×2 (08:31→21:08)
[2016-11-02] MEDS: SODIUM HYPOCHLORITE 0.25% IRRIG 473 ML BOTTLE TOP SCH (08:32)
[2016-11-02] MEDS: METOPROLOL TARTRATE 25 MG TABLET PEG SCH ×2 (09:35→21:08)
--- NOTE | 2016-11-02 11:49 | Pulmonology Progress Note ---
Pulmonary - PN: Subj Interval history: Is a 71-year-old black female whom I saw in pulmonary consultation on 10/31/2016. She is on mechanical ventilation. She was admitted to ICU after a PEA. She was observed to have aspirated. She was bronchoscoped on 10/31/2016. See report. My impressions were 1. Acute cardiac arrest. 2. Heart disease 3. Congestive heart failure 4. Aspiration 5. Dementia 6. Renal failure 7. Anemia 8. Peripheral artery disease with lower extremity infections. 9. See past history 11/01/2016. Today's EKG shows sinus rhythm with inferior and lateral wall T- wave inversion. Chest x-ray shows partially resolved congestive heart failure. There is a fairly dense right lower lung infiltrate and early infiltrate in the left lower lung. ABGs on FiO2 of 60% and mechanical ventilation shows a pH of 7.44, PCO2 29.5, PO2 of 85.2 and a bicarb of 19.8. Sodium is 157 with a potassium of 3.4 and a chloride of 119. Creatinine is elevated 6.10 and BUN is 139. Natruretic peptide is dropped from 1739-6665. Proteins and albumin are low at 5.7 1.4 respectively. White blood cell count is 13,800 with 91 segs. H& H is 8.8/27.9. Platelets are 191,000. We will force 03/2017 I thought I ordered Doppler venograms of the lower extremities but these are not done so I reordered them today. I have also ordered an echocardiogram. This patient clearly had congestive heart failure before she had her cardiac arrest. Consider cardiology consultation. Urine cultures have grown providentuia. Right foot cultures have grown Providencia. Also the foot is growing methicillin-resistant staph aureus and Enterococcus faecalis. 11/03/2015. EEG has been done but results are pending. Patient makes very little movement and mainly to pain withdrawal. Will cautiously retry weaning protocol today chest x-ray shows a residual right lower lung infiltrate. Note is central volume appears to be top normal and there is a small amount of fluid in each costophrenic angle and in the minor fissure on the right. Endotracheal tube is in good position. Urine and foot cultures are noted on my note 2016. ABGs on mechanical ventilation with an FiO2 of 60% shows a pH of 7.40, PCO2 of 32, PO2 of 123 and a bicarb of 19.3. Sodium remains elevated at 155. Creatinine is 6.10 with a BUN of 137. H&H is stable at 9.1/29.5. White count is elevated at 19,500 with 93.4% 6. Protein and albumin are low. Labs been reviewed. Medicines have been reviewed. BNP has been elevated. Echocardiogram. 11/01/2016. Ejection fraction is 45% with +1 diastolic dysfunction Physical exam. Vital signs. See below Neurologic. Faint response to pain. Not arousable. Chest. Marked congestion has improved significantly. Heart. Lateral PMI Abdomen. Nondistended. Only rare bowel sounds. Neck. Symmetrical. No meningismus Lymphatics. No submandibular cervical supraclavicular or epitrochlear adenopathy. Extremities. Chronic ulcerations. Mild chronic venous stasis. Plan. 1. Add [place] to cover [place]. 11/01/2016. Note there are no sensitivities for Enterococcus faecalis, methicillin-resistant staph aureus 2. Cleocin for aspiration 3. Fiberoptic bronchoscopy 4. Doppler venograms to lower extremities.. 11/01/2016. Reorder 5. BNP 6. Mechanical ventilation weaning protocol 7. Mechanical ventilation physical therapy protocol 8. Proton pump inhibitor protocol 9. Deep venous thrombophlebitis prevention protocol 10. See orders 11. 11/01/2016. Echocardiogram. Consider cardiology consultation. 12. See my note 11/02/2006 Exam (Progress Note) - Constitutional Vitals: Period Temp Pulse Resp BP Sys/Ballard Pulse Ox Last 24 Hr 97 F-98.4 F 64-74 13-23 126-191/52-86 99-100 Results - Labs CBC & BMP: 11/02/16 04:40 11/02/16 04:40
--- NOTE | 2016-11-02 12:05 | Nephrology Progress Note ---
Nephrology - PN: Subj Interval history: She remains on the ventilator. She is poorly responsive Exam (PN)-Nephrology - Vital Signs Vital signs: Period Temp Pulse Resp BP Sys/Ballard Pulse Ox Last 24 Hr 97 F-99.3 F 64-74 10-23 126-191/52-86 99-100 Exam: Gen.: Poorly responsive on ventilator ENT: Pupils equal round reactive to light. Neck: Supple. No JVD or bruit. Cardiovascular: Regular rate and rhythm. No murmur rub or gallop Lungs: Clear Abdomen: Soft. Nontender. Positive bowel sounds. No organomegaly Extremities: 1+ edema - Lab 11/02/16 04:40 11/02/16 04:40 Most recent lab results ABG pH 7.400 (7.35-7.45) 11/02/16 03:35 ABG pCO2 31.8 MM HG (35-48) L 11/02/16 03:35 ABG pO2 123.6 MM HG (80-95) H 11/02/16 03:35 ABG HCO3 19.3 MMOL/L (20-26) L 11/02/16 03:35 ABG O2 Saturation 97.8 % (95-100) 11/02/16 03:35 Calcium 7.1 MG/DL (8.5-10.1) L 11/02/16 04:40 Phosphorus 7.6 MG/DL (2.5-4.9) H 11/01/16 05:00 Magnesium 2.9 MG/DL (1.8-2.4) H 11/02/16 04:40 Assessment and Plan (1) Chronic kidney disease, stage IV (severe) Status: Chronic Assessment and plan: 71-year-old woman admitted with: * CRF stage IV. Baseline creatinine 2.5 * Acute renal failure. This has worsened DT hypotension after cardiac arrest. Creatinine is stable at 6.1 * Hypernatremia. Adjust free water intake feedings * Cardiac arrest * Anoxic brain injury * Hyperkalemia. Resolved * Peripheral vascular disease * Dementia * Cerebrovascular disease * Diabetes mellitus * Decubitus ulcer Current Visit: Yes (2) CVA, old, dysphagia Status: Chronic Current Visit: Yes (3) Decubitus ulcer, hip, right, unstageable Status: Acute Current Visit: Yes (4) Dehydration Status: Acute Current Visit: Yes (5) Gangrene of foot Status: Acute Current Visit: Yes (6) Hyperkalemia Status: Acute Current Visit: Yes (7) Dementia Status: Chronic Current Visit: Yes (8) Diabetes mellitus Status: Chronic Current Visit: Yes Qualifiers: Diabetes mellitus type: type 2 Chronic kidney disease stage: stage 4 ( severe) (9) Hypernatremia Problem details: Calculated free water deficit 3.8L. Status: Acute Current Visit: No (10) UTI (urinary tract infection) Status: Acute Current Visit: No
--- NOTE | 2016-11-02 13:26 | Hospitalist Progress Note ---
Assessment and Plan (1) Gas gangrene Status: Acute Assessment and plan: right leg gangrene, needs amputation but family does not want, already has amputation on left. Continue cefepime and daptomycin Current Visit: No (2) Respiratory failure Status: Acute Assessment and plan: Diffuse bilateral infiltrates a large part of which is probably pulmonary edema Current Visit: Yes (3) Uncontrolled hypertension Status: Acute Assessment and plan: Blood pressure elevated Current Visit: No (4) CHF (congestive heart failure) Status: Acute Assessment and plan: Patient needs gentle diuresis but unable to do due to elevated sodiums Current Visit: No (5) Decubitus ulcer of sacral region, unstageable Status: Chronic Assessment and plan: Dr. Veloz is managing Current Visit: No (6) Diabetes mellitus Status: Chronic Assessment and plan: Continue insulin sliding scale, increase Lantus Current Visit: Yes Qualifiers: Diabetes mellitus type: type 2 Chronic kidney disease stage: stage 4 ( severe) (7) Acute worsening of stage 4 chronic kidney disease Status: Acute Assessment and plan: End-stage renal failure poor prognosis, Dr. Kitchen managing, Current Visit: No (8) Hypernatremia Status: Acute Assessment and plan: Increase free water through PEG tube Current Visit: No (9) Atrial fibrillation Status: Chronic Assessment and plan: Currently still in atrial fib rate controlled with metoprolol and diltiazem Current Visit: No (10) Sacral decubitus ulcer, stage III Status: Acute Assessment and plan: Dr. Veloz is managing Current Visit: Yes (11) Decubitus ulcer, hip, right, unstageable Status: Acute Assessment and plan: Dr. Veloz is managing Current Visit: Yes (12) CVA, old, dysphagia Status: Chronic Current Visit: Yes (13) Cardiac arrest due to respiratory disorder Status: Acute Current Visit: Yes (14) Anoxic encephalopathy Status: Acute Assessment and plan: EEG done reading pending would recommend withdrawal of care Current Visit: Yes Hospitalist: Subjective Interval history: Less responsive today. EEG done by no reading. Exam - Constitutional Vitals: Period Temp Pulse Resp BP Sys/Ballard Pulse Ox Last 24 Hr 97 F-99.3 F 64-74 10-23 126-191/52-86 99-100 Exam: Heart Rate-[RRR] Lungs-[CTAB] GI-[+bs soft, NT] Ext-[no edema] Neuro [unresponsive to pain, no purposeful movement psych [unable to assess ] General [no acute distress] Results - Labs CBC & BMP: 11/02/16 04:40 11/02/16 04:40 Lab Results: I have reviewed the past 24 hour labs Labs: Urine culture and wound culture growing multiple organisms with sensitivities to daptomycin and cefepime - Diagnostic Findings Procedure: Chest x-ray: report reviewed by me (Diffuse bilateral infiltrate), Ultrasound: report reviewed by me (No evidence of DVT)
[2016-11-02] MEDS: BACITRACIN OINT 28.35 GM TUBE TOP SCH (14:38)
--- NOTE | 2016-11-02 15:41 | Neurology Progress Note ---
Neurology - PN : Subjective Interval history: Unchanged neurologically. No more seizure activity reported. Unresponsive to even deep painful stimuli. Exam (Progress Note) - Constitutional Vitals: Period Temp Pulse Resp BP Sys/Ballard Pulse Ox Last 24 Hr 97 F-99.3 F 64-74 10-23 126-191/52-86 99-100 Exam: GENERAL: Patient is in no acute distress. NECK: Neck is supple. There is no JVD. No carotid bruits present. No thyroid masses. CVS: First and second heart sounds are normal. There is no S3 present. Regular rate and rhythm. RESPIRATORY: Lungs are clear to auscultation without any rales or rhonchi. ABDOMEN: Soft and non-tender. Bowel sounds are present. There is no hepatosplenomegaly. EXT: There is no palpable edema. Peripheral pulses are present. Skin: No rashes Central Nervous system: General: On vent unresponsive, eyes open Speech: None Comprehension: None Facial expressions: Normal Cranial Nerves: Pupils are 2 mm nonreactive. Doll's head eye movements are absent. no facial asymmetry seen. Motor: Cannot be assessed Sensory: Cannot be assessed Reflexes: 1+ and symmetrical Cerebellar function: Not be assessed Toes: Equivocal Gait: Cannot be assessed Results - Labs CBC & BMP: 11/02/16 04:40 11/02/16 04:40 Assessment and Plan (1) Anoxic encephalopathy Status: Acute Assessment and plan: Hypoxic anoxic encephalopathy secondary to cardiopulmonary arrest Prognosis is poor Current Visit: Yes (2) Myoclonic jerking Status: Acute Assessment and plan: Continue Depacon 500 mg IV every 8 Discussed at length with the family regarding the disease process and prognosis. They voiced understanding everything Current Visit: Yes
--- NOTE | 2016-11-02 15:54 | General Surgery Progress Note ---
Assessment and Plan - Time spent with patient Time spent with patient: Less than 30 minutes (1) Sacral decubitus ulcer, stage III Status: Acute Assessment and plan: Impression: Sacral decubitus ulcer stage III Starting wound care 10/29/2026 Sacral ulcer remains stable and clean with no ischemic areas wound care has started Current Visit: Yes (2) Decubitus ulcer, hip, right, unstageable Status: Acute Assessment and plan: Impression: Decubitus ulcer right hip with blistering probably stage II but unstageable at this time. Plan: Starting wound care 10/29/2016. Right hip ulcer was debrided of loose skin at this time and there is one little dark area that is still fairly superficial. The ulcer remains unstageable and will continue to moisturize it and try to keep her off of it. Whether debridements can be required I would just have to give it some time and see. Current Visit: Yes (3) CVA, old, dysphagia Status: Chronic Assessment and plan: Impression: Old CVA with dysphasia has feeding tube in place Current Visit: Yes (4) Dry gangrene Status: Chronic Assessment and plan: 10/29/2016. Patient has underlying peripheral arterial disease of the right lower extremity with ulcerations of the foot and has a dry gangrene eschars over the heel and both lateral and medial aspect of the metatarsal heads. No obvious infection present but she is extremely tender with the leg drawn up at this time. I have had conversations with the son that I feel like that she probably needs to be considered for an amputation above the knee at this point to give her some pain relief improve the chances of care. We note the ulcers on the feet are not going to get better and not to heal and that we are see if she is capable of undergoing additional surgery to get this process under better control which will improve her general overall health. Current Visit: No (5) Aspiration of blood with respiratory symptoms Status: Acute Assessment and plan: 10/31/2016. Status post aspiration with cardiopulmonary arrest on the ventilator at this time. Gases appear to be improved at this time no further aspirations during the night. Current Visit: Yes (6) Cardiac arrest due to respiratory disorder Status: Acute Assessment and plan: 10/31/2016. Status post cardiopulmonary arrest related to her aspiration. Gases are better today she is on the ventilator and was scheduled for [facility] sometime today. Mentally she is not showing much response to some fascial changes at times. She is a previous CVA and not sure that she did not have some other complications mentally associated with the arrest. Creatinine is low at 23 and she is scheduled get some blood today. Pressor agents have been tapered down and her blood pressure seems to be holding. Creatinine is holding at 6 urine output is low. Patient remains critical but stable at this time. We will get neurology to look at her and begin the process of seeing much mental activity we still have. 11/01/2016. Patient remains on the ventilator but seems to be a little bit more alert with responding to verbal stimuli at this time. Vital signs are stable hematocrits of 2:27 units. Creatinine is still 6. Right now she remains in supportive stage with all wounds clean and stable at this time. Waiting for neurology's evaluation. 11/02/2016. Cardiac status is better. She is off all pressors at this time blood pressures look in good shape at this time. Creatinine remains 6. Unfortunately the patient's not making much response to stimuli at this time. Dr. Briceño has spoken to the family about her status but am not quite sure where the family wants to go at this time. Current Visit: Yes Subjective Patient reports: Present: no new complaints, other (Neurological status looks grave. Patient remains on the ventilator) Exam - Constitutional Vitals: Period Temp Pulse Resp BP Sys/Ballard Pulse Ox Last 24 Hr 97 F-99.3 F 64-74 10-23 126-191/52-86 99-100 General appearance: severe distress - Head Head exam: Present: normal inspection - ENT ENT exam: Present: normal exam - Neck Neck exam: Present: normal inspection - Respiratory Respiratory exam: Present: rales, rhonchi - Cardiovascular Cardiovascular exam: Present: RRR - GI/Abdominal GI/Abdominal exam: Present: soft. Absent: tenderness - Extremities Exam Extremities exam: Present: other (Ischemic changes right foot stable) - Back Exam Back exam: Present: normal inspection - Neurological Exam Neurological exam: Present: altered - Skin Skin exam: Present: normal color, warm, dry Results - Labs CBC & BMP: 11/02/16 04:40 11/02/16 04:40 Lab Results: I have reviewed the past 24 hour labs
[2016-11-02] MEDS: CEFEPIME 500 MG in SODIUM CHLORIDE 0.9% 100 ML IV SCH (18:15)
[2016-11-02] MEDS: DONEPEZIL 5 MG TABLET PEG SCH (21:07)
[2016-11-02] MEDS: INSULIN GLARGINE 100 UNIT/ML SUBCUT SCH (21:07)
[2016-11-02] MEDS: ATORVASTATIN 40 MG TABLET PEG SCH (21:08)
[2016-11-03] MEDS: INSULIN REGULAR 100 UNIT/ML SUBCUT SCH ×4 (00:04→17:37)
[2016-11-03 03:29] LABS: Allen Test Positive; Pt O2 Delivery Device Ventilator
[2016-11-03 03:33] LABS: ABG Base Excess -4.6 MMOL/L (-2.5-2.5); ABG Oxygen Saturation 98.6 % (95-100); ABG PH 7.419 (7.35-7.45); ABG PO2 163.4 MM HG (80-95); ABG TCO2 19.9 MMOL/L (23-27)
[2016-11-03] MEDS: methylPREDNISolone SOD SUC 40 MG/1 ML VIAL IV SCH ×3 (03:49→21:52)
[2016-11-03 05:10] LABS: Hematocrit 31.9 VOL% (35.7-47.0); Hemoglobin 9.7 GM/DL (12.0-16.0); Immature Granulocytes % 0.7 %; Immature Granulocytes Absolute 0.18 #; Lymphocytes # 0.3 10*3/uL (1.4-4.0); Lymphocytes % 1.4 % (21.3-54.2); Mean Corpuscular HGB Conc 30.4 GM/DL (32-36); Mean Corpuscular Hemoglobin 28 PG (27-34); Mean Corpuscular Volume 91.9 FL (87-102); Monocytes # 0.7 10*3/uL (0.11-0.8); Monocytes % 3.1 % (1.7-12.7); NRBC # 0.07 10*3/uL; Neutrophils # 22.8 10*3/uL (1.4-7.4); Neutrophils % 94.8 % (38.7-73.9); Platelet Count 196 T/CUMM (130-400); Red Blood Count 3.47 MC/CUMM (3.8-5.5); Red Cell Distribution Width 16.5 % (9.3-17.3)
[2016-11-03 05:31] LABS: Band Neutrophils 2 % (0-10); Burr Cells Slight; Hypochromasia Slight; Lymphocytes 4 % (20-55); Ovalocytes Slight; Platelet Estimate Normal; Segmented Neutrophils 92 % (50-85); Total Cells Counted 100
[2016-11-03 05:32] LABS: Microcytosis 1+
[2016-11-03 05:40] LABS: Albumin 1.5 G/DL (3.4-5.0); Bilirubin,Total 0.4 MG/DL (0.2-1.0); Calcium 7.1 MG/DL (8.5-10.1); Magnesium 2.8 MG/DL (1.8-2.4); Osmolality,Calculated 361.3 MOS/KG (273-304); Potassium 3.6 MMOL/L (3.5-5.1); Total Protein 6.2 G/DL (6.4-8.3)
--- NOTE | 2016-11-03 06:19 | XRay Report ---
Referring Physician: Lamont Veloz Exam: XR chest 1V portable Date: November 03, 2016 at 2:52 AM Reason: Aspiration Comparison: Chest one view portable November 02, 2016 Findings: A right IJ catheter and endotracheal tube are again in place. The cardiac silhouette is again mildly enlarged. There are opacities within the mid and lower lung zones bilaterally. This is concerning for pulmonary edema and atelectasis, but there could also be pneumonia or aspiration. No pneumothorax is identified, but there is mild bilateral pleural fluid. The osseous structures appear stable. Impression: There is slight increased opacification of the left mid and lower lung zones. The study is otherwise similar to before. PROCEDURE INTERPRETED AT [facility] DEPARTMENT OF RADIOLOGY Final Report Signed by: Dr. Hugh Melendez
[2016-11-03] MEDS: POTASSIUM CHLORIDE 20 MEQ/15 ML UDCUP PER TUBE PRN (06:23)
[2016-11-03] MEDS: VALPROIC ACID INJ 500 MG in SODIUM CHLORIDE 0.9% 100 ML IV SCH ×3 (06:24→21:54)
--- NOTE | 2016-11-03 07:15 | Cardiology Progress Note ---
Cardiology - PN: Subj Interval history: Cardiology note 71-year-old woman status post cardiac arrest Remains unresponsive. Telemetry shows sinus rhythm in the 70-to 80 range with PACs Blood pressure 170/70 O2 sat 100 on 60% FiO2 Regular rhythm no murmur Decreased breath sounds basilar rhonchi Abdomen soft Lab data today White count 24.0 hemoglobin 9.7 hematocrit 31.9 Sodium 155 potassium 3.6 chloride 115 CO2 23 BUN 149 creatinine 6.10 Glucose 184 Impression Status post cardiac arrest Anoxic encephalopathy Gangrene right lower extremity Longtime diabetes Chronic hypertension Status post left leg AKA Anemia Chronic renal failure Recent echo showed ejection fraction 45% with aortic sclerosis and severe TR, PA pressure 65 Plan IV antibiotics Tube feedings Ventilator support Prognosis very poor Exam (Progress Note) - Constitutional Vitals: Period Temp Pulse Resp BP Sys/Ballard Pulse Ox Last 24 Hr 96.8 F-99.3 F 58-73 10-38 139-191/56-81 99-100 Result/EKG - Labs CBC & BMP: 11/03/16 04:59 11/03/16 04:59 Labs: Laboratory Results - last 24 hr 11/02/16 11/02/16 11/02/16 11:39 17:40 23:38 WBC RBC Hgb Hct MCV MCH MCHC RDW Plt Count MPV Neut % (Auto) Lymph % (Auto) [place] % (Auto) Eos % (Auto) Baso % (Auto) Neut # (Auto) Lymph # (Auto) [place] # (Auto) Eos # (Auto) Baso # (Auto) Total Counted Immature Gran % Nucleated RBC % Immature Gran # Segmented Neutrophils Band Neutrophils Lymphocytes Monocytes Nucleated RBCs # Platelet Estimate Hypochromasia Microcytosis Ovalocytes [place] Cells Morphology Comment ABG pH ABG pCO2 ABG pO2 ABG HCO3 ABG Total CO2 ABG O2 Saturation ABG Base Excess FiO2 Sodium Potassium Chloride Carbon Dioxide Anion Gap BUN Creatinine GFR Calculation BUN/Creatinine Ratio Glucose POC Glucose 233 H 250 H 235 H Calculated Osmolality Calcium Magnesium Total Bilirubin AST ALT Alkaline Phosphatase Total Protein Albumin Globulin Albumin/Globulin Ratio 11/03/16 11/03/16 11/03/16 03:18 04:59 04:59 WBC 24.0 H RBC 3.47 L Hgb 9.7 L Hct 31.9 L MCV 91.9 MCH 28 MCHC 30.4 L RDW 16.5 Plt Count 196 MPV 13.0 H Neut % (Auto) 94.8 H Lymph % (Auto) 1.4 L [place] % (Auto) 3.1 Eos % (Auto) 0.0 Baso % (Auto) 0.0 Neut # (Auto) 22.8 H Lymph # (Auto) 0.3 L [place] # (Auto) 0.7 Eos # (Auto) 0.0 Baso # (Auto) 0.0 Total Counted 100 Immature Gran % 0.7 Nucleated RBC % 0.3 Immature Gran # 0.18 Segmented Neutrophils 92 H Band Neutrophils 2 Lymphocytes 4 L Monocytes 2 Nucleated RBCs # 0.07 Platelet Estimate Normal Hypochromasia Slight Microcytosis 1+ Ovalocytes Slight [place]asha Cells Slight Morphology Comment ABG pH 7.419 ABG pCO2 30.0 L ABG pO2 163.4 H ABG HCO3 19.0 L ABG Total CO2 19.9 L ABG O2 Saturation 98.6 ABG Base Excess -4.6 L FiO2 60.00 Sodium 155 H Potassium 3.6 Chloride 115 H Carbon Dioxide 23 Anion Gap 20.6 H BUN 149 H Creatinine 6.10 H GFR Calculation 8 BUN/Creatinine Ratio 24.00 H Glucose 203 H POC Glucose Calculated Osmolality 361.3 H Calcium 7.1 L Magnesium 2.8 H Total Bilirubin 0.40 AST 76 H ALT 105 H Alkaline Phosphatase 343 H Total Protein 6.2 L Albumin 1.5 L Globulin 4.7 H Albumin/Globulin Ratio 0.3 L 11/03/16 05:34 WBC RBC Hgb Hct MCV MCH MCHC RDW Plt Count MPV Neut % (Auto) Lymph % (Auto) [place] % (Auto) Eos % (Auto) Baso % (Auto) Neut # (Auto) Lymph # (Auto) [place] # (Auto) Eos # (Auto) Baso # (Auto) Total Counted Immature Gran % Nucleated RBC % Immature Gran # Segmented Neutrophils Band Neutrophils Lymphocytes Monocytes Nucleated RBCs # Platelet Estimate Hypochromasia Microcytosis Ovalocytes [place] Cells Morphology Comment ABG pH ABG pCO2 ABG pO2 ABG HCO3 ABG Total CO2 ABG O2 Saturation ABG Base Excess FiO2 Sodium Potassium Chloride Carbon Dioxide Anion Gap BUN Creatinine GFR Calculation BUN/Creatinine Ratio Glucose POC Glucose 184 H Calculated Osmolality Calcium Magnesium Total Bilirubin AST ALT Alkaline Phosphatase Total Protein Albumin Globulin Albumin/Globulin Ratio
[2016-11-03] MEDS: MEMANTINE 10 MG TABLET PER TUBE SCH ×2 (08:49→21:53)
[2016-11-03] MEDS: DILTIAZEM 60 MG TABLET PO SCH ×3 (08:49→21:53)
[2016-11-03] MEDS: LACTOBACILLUS RHAMNOSUS GG CAPSULE PEG SCH (08:49)
[2016-11-03] MEDS: METOPROLOL TARTRATE 25 MG TABLET PEG SCH ×2 (08:49→21:53)
[2016-11-03] MEDS: DONEPEZIL 10 MG TABLET PEG SCH (08:49)
[2016-11-03] MEDS: SODIUM HYPOCHLORITE 0.25% IRRIG 473 ML BOTTLE TOP SCH (08:50)
[2016-11-03] MEDS: BACITRACIN OINT 28.35 GM TUBE TOP SCH (08:50)
[2016-11-03] MEDS: DESITIN 4OZ/NYSTATIN 15 GRAM MIXTURE PASTE TOP SCH ×2 (08:51→21:53)
[2016-11-03] MEDS: PANTOPRAZOLE 40 MG VIAL IV SCH (08:51)
--- NOTE | 2016-11-03 11:07 | Pulmonology Progress Note ---
Pulmonary - PN: Subj Interval history: Is a 71-year-old black female whom I saw in pulmonary consultation on 10/31/2016. She is on mechanical ventilation. She was admitted to ICU after a PEA. She was observed to have aspirated. She was bronchoscoped on 10/31/2016. See report. My impressions were 1. Acute cardiac arrest. 2. Heart disease 3. Congestive heart failure 4. Aspiration 5. Dementia 6. Renal failure 7. Anemia 8. Peripheral artery disease with lower extremity infections. 9. See past history 11/01/2016. Today's EKG shows sinus rhythm with inferior and lateral wall T- wave inversion. Chest x-ray shows partially resolved congestive heart failure. There is a fairly dense right lower lung infiltrate and early infiltrate in the left lower lung. ABGs on FiO2 of 60% and mechanical ventilation shows a pH of 7.44, PCO2 29.5, PO2 of 85.2 and a bicarb of 19.8. Sodium is 157 with a potassium of 3.4 and a chloride of 119. Creatinine is elevated 6.10 and BUN is 139. Natruretic peptide is dropped from [id number]. Proteins and albumin are low at 5.7 1.4 respectively. White blood cell count is 13,800 with 91 segs. H& H is 8.8/27.9. Platelets are 191,000. We will force 03/2017 I thought I ordered Doppler venograms of the lower extremities but these are not done so I reordered them today. I have also ordered an echocardiogram. This patient clearly had congestive heart failure before she had her cardiac arrest. Consider cardiology consultation. Urine cultures have grown providentuia. Right foot cultures have grown Providencia. Also the foot is growing methicillin-resistant staph aureus and Enterococcus faecalis. 11/02/2016. EEG has been done but results are pending. Patient makes very little movement and mainly to pain withdrawal. Will cautiously retry weaning protocol today chest x-ray shows a residual right lower lung infiltrate. Note is central volume appears to be top normal and there is a small amount of fluid in each costophrenic angle and in the minor fissure on the right. Endotracheal tube is in good position. Urine and foot cultures are noted on my note 2016. ABGs on mechanical ventilation with an FiO2 of 60% shows a pH of 7.40, PCO2 of 32, PO2 of 123 and a bicarb of 19.3. Sodium remains elevated at 155. Creatinine is 6.10 with a BUN of 137. H&H is stable at 9.1/29.5. White count is elevated at 19,500 with 93.4% 6. Protein and albumin are low. Labs been reviewed. Medicines have been reviewed. BNP has been elevated. 11/03/2016. Today's chest x-ray shows congestive heart failure. This is mainly in the bases. BNP is 2262. Creatinine is elevated at 6.1 and BUN is elevated 149. ABGs are stable to better. White blood cell count is 24,000. H&H stable at 9.7/31.9.There are no new cultures. See my note 11/01/2016 concerning Positive cultures. This patient is unarousable. She is on stage IV to weaning protocol Echocardiogram. 11/01/2016. Ejection fraction is 45% with +1 diastolic dysfunction Physical exam. Vital signs. See below Neurologic. Faint response to pain. Not arousable. Chest. Marked congestion has improved significantly. Heart. Lateral PMI Abdomen. Nondistended. Only rare bowel sounds. Neck. Symmetrical. No meningismus Lymphatics. No submandibular cervical supraclavicular or epitrochlear adenopathy. Extremities. Chronic ulcerations. Mild chronic venous stasis. Plan. 1. Add [place] to cover [place]. 11/01/2016. Note there are no sensitivities for Enterococcus faecalis, methicillin-resistant staph aureus 2. Cleocin for aspiration 3. Fiberoptic bronchoscopy 4. Doppler venograms to lower extremities.. 11/01/2016. Reorder 5. BNP 6. Mechanical ventilation weaning protocol 7. Mechanical ventilation physical therapy protocol 8. Proton pump inhibitor protocol 9. Deep venous thrombophlebitis prevention protocol 10. See orders 11. 11/01/2016. Echocardiogram. Consider cardiology consultation. 12. See my note 11/02/2006 Exam (Progress Note) - Constitutional Vitals: Period Temp Pulse Resp BP Sys/Ballard Pulse Ox Last 24 Hr 96.8 F-99 F 58-72 12-38 144-187/56-81 99-100 Results - Labs CBC & BMP: 11/03/16 04:59 11/03/16 04:59
--- NOTE | 2016-11-03 13:06 | Event Note ---
11/03/2016 Pt is not responsive today. VS are stable at this time. Waiting on the family to decide where we are going. They wanted to wait one more day to see if she responds. Still on venitlator.
--- NOTE | 2016-11-03 13:28 | Nephrology Progress Note ---
Nephrology - PN: Subj Interval history: She remains on the ventilator. No change in neurologic status Exam (PN)-Nephrology - Vital Signs Vital signs: Period Temp Pulse Resp BP Sys/Ballard Pulse Ox Last 24 Hr 97.9 F-99 F 56-72 12-38 145-187/56-79 98-100 Exam: ENT: Intubated Cardiovascular: Regular rate and rhythm. No murmur rub or gallop Lungs: Clear Extremities: 1+ edema - Lab 11/03/16 04:59 11/03/16 04:59 Most recent lab results ABG pH 7.419 (7.35-7.45) 11/03/16 03:18 ABG pCO2 30.0 MM HG (35-48) L 11/03/16 03:18 ABG pO2 163.4 MM HG (80-95) H 11/03/16 03:18 ABG HCO3 19.0 MMOL/L (20-26) L 11/03/16 03:18 ABG O2 Saturation 98.6 % (95-100) 11/03/16 03:18 Calcium 7.1 MG/DL (8.5-10.1) L 11/03/16 04:59 Phosphorus 7.6 MG/DL (2.5-4.9) H 11/01/16 05:00 Magnesium 2.8 MG/DL (1.8-2.4) H 11/03/16 04:59 Assessment and Plan (1) Chronic kidney disease, stage IV (severe) Status: Chronic Assessment and plan: 71-year-old woman admitted with: * CRF stage IV. Baseline creatinine 2.5 * Acute renal failure. This has worsened DT hypotension after cardiac arrest. Creatinine is stable at 6.1 * Hypernatremia. Increase free water per tube feeding * Cardiac arrest * Anoxic brain injury * Hyperkalemia. Resolved * Peripheral vascular disease * Dementia * Cerebrovascular disease * Diabetes mellitus * Decubitus ulcer Current Visit: Yes (2) CVA, old, dysphagia Status: Chronic Current Visit: Yes (3) Decubitus ulcer, hip, right, unstageable Status: Acute Current Visit: Yes (4) Dehydration Status: Acute Current Visit: Yes (5) Gangrene of foot Status: Acute Current Visit: Yes (6) Hyperkalemia Status: Acute Current Visit: Yes (7) Dementia Status: Chronic Current Visit: Yes (8) Diabetes mellitus Status: Chronic Current Visit: Yes (9) Hypernatremia Problem details: Calculated free water deficit 3.8L. Status: Acute Current Visit: No (10) UTI (urinary tract infection) Status: Acute Current Visit: No
--- NOTE | 2016-11-03 13:31 | Hospitalist Progress Note ---
Assessment and Plan (1) Gas gangrene Status: Acute Assessment and plan: right leg gangrene, needs amputation but family does not want, already has amputation on left. Continue cefepime and daptomycin Current Visit: No (2) Respiratory failure Status: Acute Assessment and plan: Diffuse bilateral infiltrates a large part of which is probably pulmonary edema Current Visit: Yes (3) Uncontrolled hypertension Status: Acute Assessment and plan: Blood pressure elevated Current Visit: No (4) CHF (congestive heart failure) Status: Acute Assessment and plan: start lasix Current Visit: No (5) Decubitus ulcer of sacral region, unstageable Status: Chronic Assessment and plan: Dr. Veloz is managing Current Visit: No (6) Diabetes mellitus Status: Chronic Assessment and plan: Continue insulin sliding scale and Lantus Current Visit: Yes Qualifiers: Diabetes mellitus type: type 2 Chronic kidney disease stage: stage 4 ( severe) (7) Acute worsening of stage 4 chronic kidney disease Status: Acute Assessment and plan: End-stage renal failure poor prognosis, Dr. Kitchen managing, Current Visit: No (8) Hypernatremia Status: Acute Assessment and plan: cont free water through PEG tube Current Visit: No (9) Atrial fibrillation Status: Chronic Assessment and plan: controlled with metoprolol and diltiazem Current Visit: No (10) Sacral decubitus ulcer, stage III Status: Acute Assessment and plan: Dr. Veloz is managing Current Visit: Yes (11) Decubitus ulcer, hip, right, unstageable Status: Acute Assessment and plan: Dr. Veloz is managing Current Visit: Yes (12) CVA, old, dysphagia Status: Chronic Current Visit: Yes (13) Cardiac arrest due to respiratory disorder Status: Acute Current Visit: Yes (14) Anoxic encephalopathy Status: Acute Assessment and plan: would recommend withdrawal of care Current Visit: Yes Hospitalist: Subjective Interval history: Case management reports family will withdraw support tonight. Exam - Constitutional Vitals: Period Temp Pulse Resp BP Sys/Ballard Pulse Ox Last 24 Hr 97.9 F-99 F 56-72 12-38 145-187/56-79 98-100 Exam: Heart Rate-[RRR] Lungs-[rhonchi] GI-[+bs soft, NT] Ext-[no edema] Neuro [unresponsive to pain, no purposeful movement psych [unable to assess ] General [no acute distress] Results - Labs CBC & BMP: 11/03/16 04:59 11/03/16 04:59 Lab Results: I have reviewed the past 24 hour labs
[2016-11-03] MEDS: FUROSEMIDE 20 MG/2 ML VIAL IV SCH (16:13)
[2016-11-03] MEDS: CEFEPIME 500 MG in SODIUM CHLORIDE 0.9% 100 ML IV SCH (16:13)
[2016-11-03] MEDS ORDERED: MORPHINE 2 MG/1 ML SYRINGE IV PRN (17:21)
[2016-11-03] MEDS ORDERED: MORPHINE 2 MG/1 ML SYRINGE ONE (17:26)
[2016-11-03] MEDS: DONEPEZIL 5 MG TABLET PEG SCH (21:53)
[2016-11-03] MEDS: INSULIN GLARGINE 100 UNIT/ML SUBCUT SCH (21:53)
[2016-11-03] MEDS: ATORVASTATIN 40 MG TABLET PEG SCH (21:53)
[2016-11-04] MEDS: INSULIN REGULAR 100 UNIT/ML SUBCUT SCH ×3 (00:21→11:15)
[2016-11-04] MEDS: methylPREDNISolone SOD SUC 40 MG/1 ML VIAL IV SCH ×2 (05:23→11:15)
[2016-11-04] MEDS: VALPROIC ACID INJ 500 MG in SODIUM CHLORIDE 0.9% 100 ML IV SCH (05:58)
--- NOTE | 2016-11-04 07:17 | Cardiology Progress Note ---
Cardiology - PN: Subj Interval history: Cardiology note 71-year-old woman status post cardiac arrest with anoxic encephalopathy. Patient remains unresponsive. She has been extubated and made a DNR. Telemetry shows sinus rhythm in the 60s Blood pressure 118/50 Regular rhythm soft systolic murmur Decreased breath sounds with rhonchi Abdomen soft Impression Status post cardiac arrest Anoxic encephalopathy Gangrene right lower leg Longtime diabetes Status post left leg AKA Chronic renal failure Anemia Recent echo showed ejection fraction 45% with severe TR PA pressure 65 Plan Comfort care Exam (Progress Note) - Constitutional Vitals: Period Temp Pulse Resp BP Sys/Ballard Pulse Ox Last 24 Hr 96.7 F-99 F 56-73 12-25 120-185/52-75 72-100 Result/EKG - Labs CBC & BMP: 11/03/16 04:59 11/03/16 04:59 Labs: Laboratory Results - last 24 hr 11/03/16 11/03/16 09:40 11:43 POC Glucose 183 H B-Natriuretic Peptide 2262 H
[2016-11-04] MEDS: FUROSEMIDE 20 MG/2 ML VIAL IV SCH (07:52)
[2016-11-04] MEDS: BACITRACIN OINT 28.35 GM TUBE TOP SCH (08:06)
[2016-11-04] MEDS: DONEPEZIL 10 MG TABLET PEG SCH (08:06)
[2016-11-04] MEDS: SODIUM HYPOCHLORITE 0.25% IRRIG 473 ML BOTTLE TOP SCH (08:07)
[2016-11-04] MEDS: MEMANTINE 10 MG TABLET PER TUBE SCH (08:07)
[2016-11-04] MEDS: DILTIAZEM 60 MG TABLET PO SCH (08:07)
[2016-11-04] MEDS: LACTOBACILLUS RHAMNOSUS GG CAPSULE PEG SCH (08:07)
[2016-11-04] MEDS: DESITIN 4OZ/NYSTATIN 15 GRAM MIXTURE PASTE TOP SCH (08:07)
[2016-11-04] MEDS: PANTOPRAZOLE 40 MG VIAL IV SCH (08:07)
[2016-11-04] MEDS: METOPROLOL TARTRATE 25 MG TABLET PEG SCH (08:07)
[2016-11-04] MEDS ORDERED: fentaNYL 12 MCG/HR PATCH TRANSDERM SCH (09:00)
--- NOTE | 2016-11-04 09:10 | General Surgery Progress Note ---
Assessment and Plan - Time spent with patient Time spent with patient: Less than 30 minutes (1) Sacral decubitus ulcer, stage III Status: Acute Assessment and plan: Impression: Sacral decubitus ulcer stage III Starting wound care 10/29/2026 Sacral ulcer remains stable and clean with no ischemic areas wound care has started Current Visit: Yes (2) Decubitus ulcer, hip, right, unstageable Status: Acute Assessment and plan: Impression: Decubitus ulcer right hip with blistering probably stage II but unstageable at this time. Plan: Starting wound care 10/29/2016. Right hip ulcer was debrided of loose skin at this time and there is one little dark area that is still fairly superficial. The ulcer remains unstageable and will continue to moisturize it and try to keep her off of it. Whether debridements can be required I would just have to give it some time and see. Current Visit: Yes (3) CVA, old, dysphagia Status: Chronic Assessment and plan: Impression: Old CVA with dysphasia has feeding tube in place Current Visit: Yes (4) Dry gangrene Status: Chronic Assessment and plan: 10/29/2016. Patient has underlying peripheral arterial disease of the right lower extremity with ulcerations of the foot and has a dry gangrene eschars over the heel and both lateral and medial aspect of the metatarsal heads. No obvious infection present but she is extremely tender with the leg drawn up at this time. I have had conversations with the son that I feel like that she probably needs to be considered for an amputation above the knee at this point to give her some pain relief improve the chances of care. We note the ulcers on the feet are not going to get better and not to heal and that we are see if she is capable of undergoing additional surgery to get this process under better control which will improve her general overall health. Current Visit: No (5) Aspiration of blood with respiratory symptoms Status: Acute Assessment and plan: 10/31/2016. Status post aspiration with cardiopulmonary arrest on the ventilator at this time. Gases appear to be improved at this time no further aspirations during the night. Current Visit: Yes (6) Cardiac arrest due to respiratory disorder Status: Acute Assessment and plan: 10/31/2016. Status post cardiopulmonary arrest related to her aspiration. Gases are better today she is on the ventilator and was scheduled for [facility] sometime today. Mentally she is not showing much response to some fascial changes at times. She is a previous CVA and not sure that she did not have some other complications mentally associated with the arrest. Creatinine is low at 23 and she is scheduled get some blood today. Pressor agents have been tapered down and her blood pressure seems to be holding. Creatinine is holding at 6 urine output is low. Patient remains critical but stable at this time. We will get neurology to look at her and begin the process of seeing much mental activity we still have. 11/01/2016. Patient remains on the ventilator but seems to be a little bit more alert with responding to verbal stimuli at this time. Vital signs are stable hematocrits of 2:27 units. Creatinine is still 6. Right now she remains in supportive stage with all wounds clean and stable at this time. Waiting for neurology's evaluation. 11/02/2016. Cardiac status is better. She is off all pressors at this time blood pressures look in good shape at this time. Creatinine remains 6. Unfortunately the patient's not making much response to stimuli at this time. Dr. Briceño has spoken to the family about her status but am not quite sure where the family wants to go at this time. 11/04/2016. Patient is now off the ventilator but she still seems to linger on breathing on her own but having a low SaO2 at times. Vital signs remained stable. No higher brain function is present and she does not respond to any stimuli. Have discussed things with the family and they made her as a no code last night. I indicated to the M I do not know how long she might linger in this process and they were good with her moving to the floor so that it could be with her more. Current Visit: Yes Subjective Patient reports: Present: no new complaints, afebrile Exam - Constitutional Vitals: Period Temp Pulse Resp BP Sys/Ballard Pulse Ox Last 24 Hr 96.7 F-98.6 F 54-73 12-25 120-157/51-73 60-100 General appearance: mild distress - Head Head exam: Present: normal inspection - ENT ENT exam: Present: normal exam - Neck Neck exam: Present: normal inspection - Respiratory Respiratory exam: Present: rales, rhonchi - Cardiovascular Cardiovascular exam: Present: RRR - GI/Abdominal GI/Abdominal exam: Present: hyperactive bowel sounds, soft - Extremities Exam Extremities exam: Present: other (Ischemic changes of the right foot unchanged.) - Back Exam Back exam: Present: other (Sacral ulcer unchanged) - Neurological Exam Neurological exam: Present: altered, other (No upper brain response to stimuli) - Skin Skin exam: Present: normal color, warm, dry Results - Labs CBC & BMP: 11/03/16 04:59 11/03/16 04:59 Lab Results: I have reviewed the past 24 hour labs
[2016-11-04 10:22] VITALS: BP 113/53
--- NOTE | 2016-11-04 12:16 | Pulmonology Progress Note ---
Pulmonary - PN: Subj Interval history: Chito Reyes, ANP-BC, GNP-BC, acting as scribe for Dr. Brian Henriquez The patient was terminally extubated last night. She is a DO NOT RESUSCITATE. We were told by nursing staff that she is comfort measures only. We will sign off. Please reconsult as needed. Exam (Progress Note) - Constitutional Vitals: Period Temp Pulse Resp BP Sys/Ballard Pulse Ox Last 24 Hr 96.7 F-98.6 F 47-73 11-29 110-157/51-72 60-99 Results - Labs CBC & BMP: 11/03/16 04:59 11/03/16 04:59
--- NOTE | 2016-11-04 12:18 | Hospitalist Progress Note ---
Assessment and Plan (1) Gas gangrene Status: Acute Assessment and plan: hospice end of life care Current Visit: No (2) Respiratory failure Status: Acute Assessment and plan: Comfort end of life care Current Visit: Yes (3) Cardiac arrest due to respiratory disorder Status: Acute Current Visit: Yes (4) Anoxic encephalopathy Status: Acute Assessment and plan: comfort end of life care with fentanyl patch and prn morphine. Current Visit: Yes Hospitalist: Subjective Interval history: Patient looks very comfortable today. We are adding a fentanyl patch just to ease any shortness of breath discomfort or hunger. We will use morphine for breakthrough. Visited with family today and they are hanging in there. Exam - Constitutional Vitals: Period Temp Pulse Resp BP Sys/Ballard Pulse Ox Last 24 Hr 96.7 F-98.6 F 47-73 11-29 110-157/51-72 60-99 Exam: Heart Rate-[nithya] Lungs-[rhonchi] GI-[+bs soft, NT] neuro resting comfortably Results - Labs CBC & BMP: 11/03/16 04:59 11/03/16 04:59 Lab Results: I have reviewed the past 24 hour labs
--- NOTE | 2016-11-04 13:05 | Discharge Summary ---
Hospital Course - Hospital Course Hospital Course: Final summary: Final diagnosis: 1. Cardio pulmonary arrest probably secondary to aspiration 2. Anoxic brain injury secondary to cardiopulmonary arrest 3. Aspiration with cardiopulmonary arrest 4. History of old CVA 5. Ischemic changes of the right foot 6. Decubitus ulcer of the sacrum stage IV 7. Decubitus ulcer right hip stage II 8. Diabetes adult onset 9. Renal insufficiency. Procedure Central line placement per Dr. Veloz Bronchoscopy per Dr. Larkin Brief summary: 71-year-old -[place] female who has had a stroke and has had progressive ischemic changes of lower extremities. 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 She developed ulcerations and progressive ischemic changes of the right foot that now has gotten severe enough to cause her wrist pain although there is no sign of any infection. Because of these changes would put her in to get her ready for possibility of an amputation of that leg. She is receiving tube feedings as her nutritional source at this time. She has had a stroke with aphasia making it necessary to feed her with the gastrostomy tube. She came in with a sacral ulcer that has been doing well and looks good slowly improving getting some good granulating tissue in. This was an old ulcer stage IV that was on her previous hospitalization. She came at this time with some blistering changes of the right hip area that looks like an early decubitus ulcer probably stage II at this time. This was primarily due to rest pain that she was having in that right foot keeping that leg drawn up and tender. We had been given her some IV antibiotics and correcting some of her electrolytes at this time bringing and renal to look at her renal function since the urine output was low and she had a creatinine of about 6.1. During this process she suddenly aspirated and arrested and she was resuscitated on the floor then taken to the ICU placed on a ventilator. Dr. Larkin is consulted and he went in and was scoping her to clean out the bronchial tree. She had to have pressors initially to get her blood pressure up but once that stabilized we were able to wean her off pressors without any difficulty. During this time it was clear that she was not showing any sign of any upper level mental capabilities. She was not responding to stimuli. With that we consulted Dr. Velezthe neurologist to see her and he eventually did an EEG. He did not feel like that she had any higher brain function that she probably had an anoxic brain injury at this time. The family was informed of these results and after a day they decided when he did take off all support measures at this time and just keep her comfortable. She was moved to the floor so family could be whether at this time and at 1242 hrs. on this day she stopped breathing and had no heart rate or heartbeat. She was pronounced at this time the family informed of this. - Cause of Cause of : Cardiopulmonary arrest secondary to anoxic brain injury Diagnosis - Discharge Diagnosis (1) Sacral decubitus ulcer, stage III Status: Acute (2) Decubitus ulcer, hip, right, unstageable Status: Acute (3) CVA, old, dysphagia Status: Chronic (4) Dry gangrene Status: Chronic (5) Aspiration of blood with respiratory symptoms Status: Acute (6) Cardiac arrest due to respiratory disorder Status: Acute Discharge Plan - Discharge Medications No Action Sodium Chl/Potassium Chl Tab [Thermotabs] 1 tablet PEG DAILY Acetaminophen Tab [Tylenol Tab] 650 mg PEG Q6H PRN PRN Reason: Fever Pentoxifylline 400 mg PEG AC Collagenase Oint [Santyl Oint] 1 applic TOP DAILY Insulin Regular, Human [NovoLIN R] See Protocol SUBCUT AC Metoprolol Tartrate 25 mg PEG BID Memantine [Namenda] 10 mg PEG BID Insulin Detemir [Levemir] 20 unit SUBCUT BEDTIME Insulin Detemir [Levemir] 10 unit SUBCUT DAILY HYDROcodone/ACETAMIN 10-325 [[place] 10-325] 1 tablet PEG Q6H Donepezil [Aricept] 10 mg PEG DAILY dilTIAZem HCl [Cardizem LA] 180 mg PEG DAILY cloNIDine HCl [Clonidine HCl] 0.1 mg PEG BID Lactobacillus Acidophilus [Acidophilus] 1 each PEG DAILY Donepezil [Aricept] 5 mg PEG BEDTIME Atorvastatin [Lipitor] 40 mg PEG BEDTIME Omeprazole 40 mg PEG DAILY Sodium Hypochlorite 0.25% Irr [Dakins 1/2 Strength 0.25% Soln] 1 applic TOP DAILY - Follow Up or Referral - Forms/Instructions Exam - Constitutional Vitals: Period Temp Pulse Resp BP Sys/Ballard Pulse Ox Last 24 Hr 96.7 F-98.6 F 47-73 11-29 110-157/51-72 60-99 Discharge Results Procedures and tests throughout hospitalization: Pending Orders 10/31/16 Fungal Culture w/ Prep Stat Labs on day of discharge: Labs from last 24 hours 11/04/16 11:11 POC Glucose 174 H Preliminary micro results at discharge 10/31/16 Unknown Fungal Culture - Preliminary Bronchial Blake Lavage Casandra tropicalis DS: Provider Date of admission: 10/27/16 23:21 Primary care physician: Nonstaff Physician Attending physician on admission: Lamont Veloz MD Consults: 10/28/16 01:18 Consult to Pharmacy [CONS] Routine Reason for Pharmacy Consult: Adjust Meds Renal Funct 10/28/16 08:26 Consult to Dietitian [CONS] Routine Reason for Dietitian: Dietary Consult Consult Comment: manage tube feedings 10/28/16 08:27 Consult to Physician [CONS] Routine Comment: Consulting Provider: Yen Walter Consulting Provider Notified: Yes When should Consulting Provider be notified: Now Consult to Specialist Group: Hospitalist When should Consulting Provider be notified: Now Person Notified: jaimee matos called Date Notified: 10/28/16 Time Notified: 08:36 Consult Notification Comment: Patient with a CVA and dysphagia requiring tube feedings. She has multiple ulcers and underlying peripheral arterial disease. Please follow with us and help manage her medical problems. 10/28/16 08:31 Consult to [facility] [CONS] Routine Reason for Wound Care: Wound Care Management Consult Comment: ulcers of the right foot and hip and sacrum 10/28/16 09:43 Consult to Physician [CONS] Routine Comment: Consulting Provider: Maurice Pickens Consulting Provider Notified: Yes When should Consulting Provider be notified: Now Person Notified: eric called Date Notified: 10/28/16 Time Notified: 09:44 10/28/16 14:10 Consult to Dietitian [CONS] Routine Reason for Dietitian: TF-Initiate/Manage Consult Comment: ok for bolus feedings since feeding pump not available 10/30/16 19:14 Consult to Pastoral Services [CONS] Routine Comment: for family 10/30/16 19:25 Consult to Physician [CONS] Routine Comment: Consulting Provider: Brian Smyth When should Consulting Provider be notified: Now Person Notified: dr smyth Date Notified: 10/30/16 Time Notified: 19:40 Consult Notification Comment: Patient with aspiration and cardiac arrest now on the ventilator please help us manage the ventilator. 10/31/16 09:01 Consult to Physician [CONS] Routine Comment: Consulting Provider: Jermaine Briceño When should Consulting Provider be notified: Now Consult Notification Comment: Please evaluate mental status of patient who underwent a cardiac arrest following aspiration. Believe patient is known to you who has had a previous CVA 11/01/16 10:05 Consult to Physician [CONS] Routine Comment: Consulting Provider: Cardiology - [facility] Person Notified: Ciara Date Notified: 11/01/16 Time Notified: 09:50 11/01/16 10:06 Consult to Physician [CONS] Routine Comment: CHF Consulting Provider: Cardiology - [facility] 11/04/16 12:21 Consult to Case Mgmt/Social Srvs [CONS] Routine Reason for Case Mgmt/Social Srvs: Hospice Referral Consult Comment: Family choice but I would recommend quality hospice Discharging clinician: Lamont Veloz MD Expected date of discharge: 11/04/16
--- NOTE | 2016-11-04 16:37 | Nephrology Progress Note ---
Nephrology - PN: Subj Interval history: She was extubated yesterday and transferred to the floor. She is unresponsive. Multiple family members present Exam (PN)-Nephrology - Vital Signs Vital signs: Period Temp Pulse Resp BP Sys/Ballard Pulse Ox Last 24 Hr 96.7 F-98.6 F 47-73 11-29 110-157/51-64 60-99 Exam: Gen.: Not responsive Cardiovascular: Irregularly irregular Lungs: Clear Extremities: No edema - Lab 11/03/16 04:59 11/03/16 04:59 Most recent lab results ABG pH 7.419 (7.35-7.45) 11/03/16 03:18 ABG pCO2 30.0 MM HG (35-48) L 11/03/16 03:18 ABG pO2 163.4 MM HG (80-95) H 11/03/16 03:18 ABG HCO3 19.0 MMOL/L (20-26) L 11/03/16 03:18 ABG O2 Saturation 98.6 % (95-100) 11/03/16 03:18 Calcium 7.1 MG/DL (8.5-10.1) L 11/03/16 04:59 Phosphorus 7.6 MG/DL (2.5-4.9) H 11/01/16 05:00 Magnesium 2.8 MG/DL (1.8-2.4) H 11/03/16 04:59 Assessment and Plan (1) Chronic kidney disease, stage IV (severe) Status: Chronic Assessment and plan: 71-year-old woman admitted with: * CRF stage IV. Baseline creatinine 2.5 * Acute renal failure. Stable creatinine * Hypernatremia. Increase free water per tube feeding * Cardiac arrest * Anoxic brain injury. She appears to be terminal. Comfort measures will be continued. Discussed with family * Hyperkalemia. Resolved * Peripheral vascular disease * Dementia * Cerebrovascular disease * Diabetes mellitus * Decubitus ulcer (2) CVA, old, dysphagia Status: Chronic (3) Decubitus ulcer, hip, right, unstageable Status: Acute (4) Dehydration Status: Acute (5) Gangrene of foot Status: Acute (6) Hyperkalemia Status: Acute (7) Dementia Status: Chronic (8) Diabetes mellitus Status: Chronic Qualifiers: Diabetes mellitus type: type 2 Chronic kidney disease stage: stage 4 ( severe) (9) Hypernatremia Problem details: Calculated free water deficit 3.8L. Status: Acute (10) UTI (urinary tract infection) Status: Acute
--- NOTE | 2016-11-10 17:56 | Electroencephalogram ---
HISTORY: A 71-year-old patient with history of unresponsiveness, status post code blue. INTRODUCTION: A digital EEG was performed using the standard 10/20 system of electrode placement wi th one channel of EKG monitoring. Photic stimulation is performed. DESCRIPTION OF RECORD: The background is somewhat disorganized, consists of burst-suppression patte rn. The EEG has classified burst of sharp and waves followed by suppressed background activity, whi ch would last for 23 seconds. The record does not activate upon patient stimulation. Heart rate 70 beats per minute. IMPRESSION: ABNORMAL EEG DUE TO 1. GENERALIZED SLOWING. 2. BURST-SUPPRESSION PATTERN. CLINICAL CORRELATION: This record is supportive of severe encephalopathy, which could be secondary to postictal state, posthypoxic state, metabolic disorder, diffuse [place] insult, or increased intracra nial pressure. Burst-suppression pattern frequently seen in severe hypoxic encephalopathy. Clinica l correlation is suggested.
== END 2016-11-04 14:40 | disposition expired | DRG 637 ==
LOC: EDBD → EDUNIT# → N.ED 20:31 → N.EDINP 23:21 → N.3E 10-28 00:01 → N.ICU 10-30 18:38 → N.3E 11-04 10:03
PROVIDERS: ADMIT Specialist; ATTEND Specialist